=== PATIENT | male | born 1950 | race Caucasian/White ===

== ENCOUNTER 2023-11-30 20:04 | Observation (INO) | payer MEDICARE, BC ==
--- NOTE | 2023-11-30 20:15 | ERPHSYRPT ---
- History of Present Illness Time Seen by Provider: 11/30/23 20:12 Source: patient Exam Limitations: no limitations Physician History: Patient is a 73-year-old male presents to the emergency department via EMS for evaluation. Patient is reportedly from [facility]. 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 Christopher carol reports patient slid out of his wheelchair today. They request patient be "checked out". Patient denies pain. Patient is conversant and appears to be cognitively sound. However during triage it was observed patient to be febrile. No trauma observed on physical exam. Patient's brother is his POA. He is currently not in our ED for further information. Portions of this note were created with voice recognition technology. There may be grammatical, spelling, punctuation or sound alike errors Timing/Duration: today Severity: moderate Modifying Factors: Improves With: nothing Associated Symptoms: denies symptoms Allergies/Adverse Reactions: No Known Drug Allergies Allergy (Unverified 04/02/15 12:34) Home Medications: Lisinopril 20 mg [Zestril 20 MG] 20 mg PO DAILY 04/02/15 [History] Acetaminophen [Tylenol] 650 mg PO DAILY 11/30/23 [History] Acetaminophen [Tylenol] 650 mg PO Q6HPRN PRN 11/30/23 [History] Atorvastatin Calcium 20 mg PO HS 11/30/23 [History] Balsam [place] Oil [Venelex Ointment] 30 gm TP UD PRN 11/30/23 [History] Betamethasone Dipropionate [Diprosone CREAM 0.05% ] 15 gm TP Q12H PRN 11/30/23 [History] Donepezil HCl 10 mg [Aricept 10 MG] 10 mg PO HS 11/30/23 [History] Escitalopram Oxalate [Lexapro] 10 mg PO DAILY 11/30/23 [History] Melatonin 5 mg PO HS 11/30/23 [History] Menthol/Zinc Oxide [Calmoseptine Ointment Packet] 3.5 gm TP QID PRN 11/30/23 [History] Multivitamin [Multiple Vitamins] 1 each PO DAILY 11/30/23 [History] OLANZapine [Olanzapine] 5 mg PO BID 11/30/23 [History] Selenium Sulfide [Selsun Blue] 325 ml TP UD 11/30/23 [History] Hx Tetanus, Diphtheria Vaccination/Date Given: No Hx Influenza Vaccination/Date Given: Yes Hx Pneumococcal Vaccination/Date Given: No - Review of Systems Constitutional: No Symptoms, No Fever, No Chills Eyes: No Symptoms Ears, Nose, & Throat: No Symptoms Respiratory: No Symptoms, No Cough, No Dyspnea Cardiac: No Symptoms, No Chest Pain, No Edema, No Syncope Abdominal/Gastrointestinal: No Symptoms, No Abdominal Pain, No Nausea, No Vomiting, No Diarrhea Genitourinary Symptoms: No Symptoms, No Dysuria Musculoskeletal: No Symptoms, No Back Pain, No Neck Pain Skin: No Symptoms, No Rash Neurological: No Symptoms, No Dizziness, No Focal Weakness, No Sensory Changes Psychological: No Symptoms Endocrine: No Symptoms Hematologic/Lymphatic: No Symptoms Immunological/Allergic: No Symptoms All Other Systems: Reviewed and Negative - Past Medical History Pertinent Past Medical History: Yes Neurological History: Stroke Cardiac History: Other Other Medical History: right hemiparesis - Social History Smoking Status: Former smoker Exposure to second hand smoke: No Drug Use: none Patient Lives Alone: No - Nursing Vital Signs Nursing Vital Signs: Initial Vital Signs Temperature 99.9 F 11/30/23 20:04 Pulse Rate 89 11/30/23 20:04 Respiratory Rate 18 11/30/23 20:04 Blood Pressure 121/71 11/30/23 20:04 O2 Sat by Pulse Oximetry 94 L 11/30/23 20:04 Pain Scale Pain Intensity 0 - Physical Exam General Appearance: no apparent distress, alert Eye Exam: PERRL/EOMI, eyes nml inspection Ears, Nose, Throat Exam: normal ENT inspection, TMs normal, pharynx normal, moist mucous membranes Neck Exam: normal inspection, non-tender, supple, full range of motion Respiratory Exam: normal breath sounds, lungs clear, airway intact, No respiratory distress Cardiovascular Exam: regular rate/rhythm, normal heart sounds, normal peripheral pulses Gastrointestinal/Abdomen Exam: soft, normal bowel sounds, No tenderness, No mass Back Exam: normal inspection, normal range of motion, No CVA tenderness, No awais tebral tenderness Extremity Exam: normal inspection, normal range of motion, pelvis stable Neurologic Exam: alert, oriented x 3, cooperative, normal mood/affect, nml cerebellar function, nml station & gait, sensation nml, No motor deficits Skin Exam: normal color, warm, dry, No rash Lymphatic Exam: No adenopathy SpO2 Interpretation: normal SpO2: 94 O2 Delivery: Room Air - Course Nursing assessment & vital signs reviewed: Yes EKG Interpreted by Me: RATE (87), Sinus Rhythm, NORMAL AXIS, NORMAL INTERVALS - Radiology Exams Chest X-ray Interpretation: Interpreted by me (Nonacute hyperinflated chest with chronic features) Ordered Tests: Active Orders 24 hr Category Date Time Status Refrigerated Cargo Clerk STAT Care 11/30/23 20:11 Active EKG-ER Only STAT Care 11/30/23 20:10 Active IV Insertion STAT Care 11/30/23 20:10 Active Pulse Oximetry (ED) STAT Care 11/30/23 20:10 Active CHEST 1 VIEW (PORTABLE) Stat Exams 11/30/23 20:11 Taken BLOOD CULTURE Stat Lab 11/30/23 20:25 Received CBC W DIFF Stat Lab 11/30/23 20:18 Completed CMP Stat Lab 11/30/23 20:18 Completed Lactic Acid Stat Lab 11/30/23 20:25 Completed UA W/RFX UR CULTURE Stat Lab 11/30/23 21:26 Completed Transfer Order Routine Transfer 11/30/23 Ordered Medication Summary Generic Name Dose Route Start Last Admin Trade Name Clara PRN Reason Stop Dose Admin Sodium Chloride 1,000 mls @ 100 mls/hr 11/30/23 20:15 11/30/23 21:02 Sodium Chloride 0.9% 1000 Ml IV 12/30/23 20:14 100 mls/hr .Q10H LILO Administration Lab/Rad Data: Laboratory Result Diagrams 11/30/23 20:18 11/30/23 20:18 Laboratory Results 11/30/23 11/30/23 11/30/23 Range/Units 21:26 20:28 20:25 WBC (4.0-10.5) x10^3/uL RBC (4.1-5.6) x10^6/uL Hgb (12.5-18.0) g/dL Hct (42-50) % MCV (78-100) fL MCH (26-32) pg MCHC (32-36) g/dL RDW (11.5-14.0) % Plt Count (150-450) x10^3/uL MPV (7.5-11.0) fL Gran % (36.0-66.0) % Immature Gran % (Auto) (0.00-0.4) % Nucleat RBC Rel Count (0.00-0.1) % Eos # (Auto) (0-0.5) x10^3/uL Immature Gran # (Auto) (0.00-0.03) x10^3u/L Absolute Lymphs (auto) (1.0-4.6) x10^3/uL Absolute Monos (auto) (0.0-1.3) x10^3/uL Absolute Nucleated RBC (0.00-0.01) x10^3u/L Lymphocytes % (24.0-44.0) % Monocytes % (0.0-12.0) % Eosinophils % (0.00-5.0) % Basophils % (0.0-0.4) % Absolute Granulocytes (1.4-6.9) x10^3/uL Basophils # (0-0.4) x10^3/uL Sodium (135-145) mmol/L Potassium (3.5-5.1) mmol/L Chloride (98-107) mmol/L Carbon Dioxide (22-30) mmol/L Anion Gap (5-15) MEQ/L BUN (9-20) mg/dL Creatinine (0.66-1.25) mg/dL Estimated GFR ML/MIN Glucose (74-106) mg/dL Lactic Acid 1.1 (0.4-2.0) Calcium (8.4-10.2) mg/dL Total Bilirubin (0.2-1.3) mg/dL AST (17-59) U/L ALT (0-50) U/L Alkaline Phosphatase (38-126) U/L Serum Total Protein (6.3-8.2) g/dL Albumin (3.5-5.0) g/dL Urine Color Dark Yellow (Yellow) Urine Appearance Clear (Clear) Urine pH 5.5 (4.6-8.0) Ur Specific [place] >=1.030 A (1.005-1.030) Urine Protein 30 (Negative) Urine Glucose (UA) Negative (Negative) mg/dL Urine Ketones Trace A (Negative) Urine Blood Negative (Negative) Urine Nitrite Negative (Negative) Urine Bilirubin Negative (Negative) Urine Urobilinogen 1.0 A (0.2) mg/dL Ur Leukocyte Esterase Trace A (Negative) U Hyaline Cast (Auto) 3-5 A (0-2) /LPF Urine Microscopic RBC 0-2 (0-5) /HPF Urine Microscopic WBC 0-2 (0-5) /HPF Ur Epithelial Cells None Seen (None Seen) /HPF Urine Bacteria None Seen (None Seen) /HPF Urine Culture Reflexed NO (NO) Influenza Type A Ag NEGATIVE (NEGATIVE) Influenza Type B Ag NEGATIVE (NEGATIVE) RSV (PCR) NEGATIVE (NEGATIVE) SARS-CoV-2 (PCR) NEGATIVE (NEGATIVE) 11/30/23 11/30/23 Range/Units 20:18 20:18 WBC 8.7 (4.0-10.5) x10^3/uL RBC 3.50 L (4.1-5.6) x10^6/uL Hgb 10.4 L (12.5-18.0) g/dL Hct 33.6 L (42-50) % MCV 96.0 (78-100) fL MCH 29.7 (26-32) pg MCHC 31.0 L (32-36) g/dL RDW 15.5 H (11.5-14.0) % Plt Count 145 L (150-450) x10^3/uL MPV 10.3 (7.5-11.0) fL Gran % 84.8 H (36.0-66.0) % Immature Gran % (Auto) 0.3 (0.00-0.4) % Nucleat RBC Rel Count 0.0 (0.00-0.1) % Eos # (Auto) 0.02 (0-0.5) x10^3/uL Immature Gran # (Auto) 0.03 (0.00-0.03) x10^3u/L Absolute Lymphs (auto) 0.70 L (1.0-4.6) x10^3/uL Absolute Monos (auto) 0.53 (0.0-1.3) x10^3/uL Absolute Nucleated RBC 0.00 (0.00-0.01) x10^3u/L Lymphocytes % 8.1 L (24.0-44.0) % Monocytes % 6.1 (0.0-12.0) % Eosinophils % 0.2 (0.00-5.0) % Basophils % 0.5 (0.0-0.4) % Absolute Granulocytes 7.37 H (1.4-6.9) x10^3/uL Basophils # 0.04 (0-0.4) x10^3/uL Sodium 141 (135-145) mmol/L Potassium 4.7 (3.5-5.1) mmol/L Chloride 105 (98-107) mmol/L Carbon Dioxide 28 (22-30) mmol/L Anion Gap 12.3 (5-15) MEQ/L BUN 38 H (9-20) mg/dL Creatinine 1.07 (0.66-1.25) mg/dL Estimated GFR 72.4 ML/MIN Glucose 101 (74-106) mg/dL Lactic Acid (0.4-2.0) Calcium 9.1 (8.4-10.2) mg/dL Total Bilirubin 0.40 (0.2-1.3) mg/dL AST 34 (17-59) U/L ALT 22 (0-50) U/L Alkaline Phosphatase 117 (38-126) U/L Serum Total Protein 6.9 (6.3-8.2) g/dL Albumin 3.9 (3.5-5.0) g/dL Urine Color (Yellow) Urine Appearance (Clear) Urine pH (4.6-8.0) Ur Specific [place] (1.005-1.030) Urine Protein (Negative) Urine Glucose (UA) (Negative) mg/dL Urine Ketones (Negative) Urine Blood (Negative) Urine Nitrite (Negative) Urine Bilirubin (Negative) Urine Urobilinogen (0.2) mg/dL Ur Leukocyte Esterase (Negative) U Hyaline Cast (Auto) (0-2) /LPF Urine Microscopic RBC (0-5) /HPF Urine Microscopic WBC (0-5) /HPF Ur Epithelial Cells (None Seen) /HPF Urine Bacteria (None Seen) /HPF Urine Culture Reflexed (NO) Influenza Type A Ag (NEGATIVE) Influenza Type B Ag (NEGATIVE) RSV (PCR) (NEGATIVE) SARS-CoV-2 (PCR) (NEGATIVE) - Progress Progress: improved Progress Note: 73-year-old male history of right paraplegia from an old stroke presents to our ED for evaluation after slipping out of his wheelchair. No trauma reported. Patient denies pain. Physical exam essentially nonremarkable for acute pathology. Patient's temperature was 99.7. We initiated a febrile workup. Workup reveals dehydration. No nidus of infection observed. However patient's blood pressure observed to be low. Patient's blood pressure has been low over the past several months according to the correction however patient still continued to receive his blood pressure medication. In light of his low blood pressure we will admit patient for further evaluation. We plan on holding his blood pressure medication hydrating him and monitoring his blood pressure response. Case discussed with Dr. Arias who accepts admission at 11:35 PM. Plan of care discussed with patient. He agrees to admission to [facility] for further evaluation and treatment. Portions of this note were created with voice recognition technology. There may be grammatical, spelling, punctuation or sound alike errors Complexity problem addressed is moderate acute complicated No critical care time Complexity of data reviewed and analyzed is extensive. Test ordered test reviewed. Results analyzed and correlated clinically with history and physical exam. Management discussed with hospitalist who accepts admission to observation. Risk of complication and or risk of morbidity/mortality of patient management is high. Patient requires hospitalization for further evaluation and treatment. Vital stable. Time spent to admit patient is approximately 20 minutes. Plan of care established for shared decision making. No social determinants of health present impede follow-up. Portions of this note were created with voice recognition technology. There may be grammatical, spelling, punctuation or sound alike errors 11/30/23 23:42 Counseled pt/family regarding: lab results, diagnosis, rad results - Departure Departure Disposition: Observation Clinical Impression: Generalized weakness, Fever, Low BP Condition: Stable Critical Care Time: No Referrals: WENDI WISE MD [Primary Care Provider] - Follow up/PCP as directed
[2023-11-30 20:31] LABS: Absolute Neutrophil Ct (ANC) 7.37 x10^3/uL (1.4-6.9); BASOPHIL % 0.5 % (0.0-0.4); Basophil (Absolute #) 0.04 x10^3/uL (0-0.4); Eosinophil % 0.2 % (0.00-5.0); Eosinophil (Absolute #) 0.02 x10^3/uL (0-0.5); Hematocrit 33.6 % (42-50); Hemoglobin 10.4 g/dL (12.5-18.0); IMMATURE GRAN # 0.03 x10^3u/L (0.00-0.03); IMMATURE GRAN % 0.3 % (0.00-0.4); Lymphocytes % 8.1 % (24.0-44.0); Mean Corpuscular Hemoglobin 29.7 pg (26-32); Mean Platelet Volume 10.3 fL (7.5-11.0); Monocyte (Absolute #) 0.53 x10^3/uL (0.0-1.3); Monocytes % 6.1 % (0.0-12.0); Neutrophil % 84.8 % (36.0-66.0); Platelet Count 145 x10^3/uL (150-450); Red Cell Distribution Width 15.5 % (11.5-14.0); White Blood Count 8.7 x10^3/uL (4.0-10.5)
[2023-11-30 20:45] LABS: ALBUMIN 3.9 g/dL (3.5-5.0); ANION GAP 12.3 MEQ/L (5-15); BILIRUBIN,TOTAL 0.4 mg/dL (0.2-1.3); Calcium 9.1 mg/dL (8.4-10.2); Creatinine 1 1.07 mg/dL (0.66-1.25); EST GLOMERULAR FILTRATION RATE 72.4 ML/MIN; Potassium 4.7 mmol/L (3.5-5.1); Total Protein 6.9 g/dL (6.3-8.2)
[2023-11-30] MEDS ORDERED: Sodium Chloride 0.9% 1000 ML 1,000 ML ONE (20:58)
[2023-11-30] MEDS: Sodium Chloride 0.9% 1000 ML 1,000 ML IV SCH (21:02)
[2023-11-30 21:10] LABS: INFLUENZA A NEGATIVE (NEGATIVE); INFLUENZA B NEGATIVE (NEGATIVE); RESPIRATORY SYNCTIAL VIRUS NEGATIVE (NEGATIVE); SARS-CoV-2 Xpert Express NEGATIVE (NEGATIVE)
[2023-11-30 21:40] LABS: Appearance Clear (Clear); Bacteria None Seen /HPF (None Seen); Bilirubin Negative (Negative); Blood Negative (Negative); Epithelial Cells None Seen /HPF (None Seen); Glucose, Urine Negative (Negative); Ketones Trace (Negative); Leukocyte Esterase Trace (Negative); Nitrite Negative (Negative); Ph 5.5 (4.6-8.0); Protein,Urine Dip 30 (Negative); RBC 0-2 /HPF (0-5); Specific Gravity >=1.030 (1.005-1.030); WBC 0-2 /HPF (0-5)
[2023-11-30 21:47] LABS: ADD URINE CULTURE? NO (NO)
--- NOTE | 2023-12-01 04:15 | PCM.HP ---
History of Present Illness - Chief Complaint Chief Complaint: Generalized weakness, low blood pressure Date: 11/30/23 History of Present Illness: Mr. CASTILLO is a 73 year old male with a past medical history significant for hypertension, hyperlipidemia and previous CVA who was sent in to the hospital for evaluation due to weakness. He had a low grade fever at 99.9 and then was somewhat hypotensive with blood pressures in the 70-90s systolically so he was recommended for admission. He is resting in bed, sleepy but arousable. He appears hemodynamically stable and in no apparent distress. Blood pressures on the floor have been better in the 120-130s after getting IVFs. - Review of Systems Constitutional: Fever, No Chills, No Fatigue Eyes: No Vision Changes Ears, Nose, & Throat: No Hearing Changes, No Painful Swallowing Respiratory: No Cough, No Orthopnea, No Short Of Breath Cardiac: No Chest Pain, No Edema, No Palpitations Abdominal/Gastrointestinal: No Abdominal Pain, No Nausea, No Vomiting, No Diarrhea Genitourinary Symptoms: No Dysuria, No Frequency, No Hematuria Musculoskeletal: No Arthralgias, No Back Pain, No Neck Pain Skin: No Cellulitis, No Rash Neurological: Dizziness, Focal Weakness Psychological: No Suicidal Ideations Endocrine: No Polyuria, No Polydipsia Medications & Allergies Home Medications: Home Medication List Lisinopril 20 mg [Zestril 20 MG] 20 mg PO DAILY 04/02/15 [History Confirmed 11/30/23] Acetaminophen [Tylenol] 650 mg PO DAILY 11/30/23 [History Confirmed 11/30/23] Acetaminophen [Tylenol] 650 mg PO Q6HPRN PRN 11/30/23 [History Confirmed 11/30/23] Atorvastatin Calcium 20 mg PO HS 11/30/23 [History Confirmed 11/30/23] Balsam [place] Oil [Venelex Ointment] 30 gm TP UD PRN 11/30/23 [History Confirmed 11/30/23] Betamethasone Dipropionate [Diprosone CREAM 0.05% ] 15 gm TP Q12H PRN 11/30/23 [History Confirmed 11/30/23] Donepezil HCl 10 mg [Aricept 10 MG] 10 mg PO HS 11/30/23 [History Confirmed 11/30/23] Escitalopram Oxalate [Lexapro] 10 mg PO DAILY 11/30/23 [History Confirmed 11/30/23] Melatonin 5 mg PO HS 11/30/23 [History Confirmed 11/30/23] Menthol/Zinc Oxide [Calmoseptine Ointment Packet] 3.5 gm TP QID PRN 11/30/23 [History Confirmed 11/30/23] Multivitamin [Multiple Vitamins] 1 each PO DAILY 11/30/23 [History Confirmed 11/30/23] OLANZapine [Olanzapine] 5 mg PO BID 11/30/23 [History Confirmed 11/30/23] Selenium Sulfide [Selsun Blue] 325 ml TP UD 11/30/23 [History Confirmed 11/30/23] Allergies/Adverse Reactions: Allergies Allergy/AdvReac Type Severity Reaction Status Date / Time No Known Drug Allergies Allergy Unverified 04/02/15 12:34 - Past Medical History Past Medical History: Yes Neurological History: Stroke ENT History: No Pertinent History Cardiac History: High Cholesterol, Hypertension, Other Respiratory History: No Pertinent History Endocrine Medical History: No Pertinent History Musculoskelatal History: No Pertinent History GI Medical History: No Pertinent History History: No Pertinent History Pyscho-Social History: Anxiety, Depression Male Reproductive Disorders: Prostate Problems Comment: right hemiparesis - Past Surgical History Past Surgical History: No Neuro Surgical History: No Pertinent History Cardiac History: No Pertinent History Respiratory Surgery: No Pertinent History GI Surgical History: No Pertinent History Genitourinary Surgical Hx: No Pertinent History Musculskeletal Surgical Hx: No Pertinent History Male Surgical History: No Pertinent History Other Surgical History: unable to complete surgery history - Social History Smoking Status: Never smoker Exposure to second hand smoke: No Alcohol: None Drug Use: none - Social Determinants of Health Will the patient participate in the screening: Yes Do you worry about a steady place to live?: No Do you have any problems with any of the following?: No known problems In the past 12 months,have you had to go without utilities?: No Have you or anyone in your house had to go without enough: No Transportation Issues: No Has anyone in your support network made you feel unsafe?: No Does the patient want assistance with any of the above?: No - Physical Exam Vital Signs: Vital Signs - 24 hr Temp Pulse Resp BP BP Pulse Ox 12/01/23 01:50 96 12/01/23 00:03 98.7 F 74 18 134/63 99 12/01/23 00:02 99 11/30/23 23:47 94 L 11/30/23 23:03 76 20 83/61 95 11/30/23 23:00 81 17 69/49 95 11/30/23 22:30 78 16 82/52 11/30/23 22:02 80 20 88/60 95 11/30/23 22:01 85 19 90/59 94 L 11/30/23 22:00 84 16 96 11/30/23 21:30 82 18 99/57 94 L 11/30/23 21:00 94 H 15 127/80 94 L 11/30/23 20:23 94 L 11/30/23 20:04 99.9 F 89 18 121/71 94 L General Appearance: no apparent distress Neurologic Exam: depressed mood/affect Ears, Nose, Throat Exam: dry mucous membranes Neck Exam: supple Respiratory Exam: lungs clear, No respiratory distress Cardiovascular Exam: regular rate/rhythm Gastrointestinal/Abdomen Exam: soft, No tenderness Extremity Exam: No pedal edema, No swelling Skin Exam: normal color, No rash Results - Labs Lab/Micro Results: Lab Results-Last 24 Hours 11/30/23 11/30/23 11/30/23 Range/Units 20:18 20:18 20:25 WBC 8.7 (4.0-10.5) x10^3/uL RBC 3.50 L (4.1-5.6) x10^6/uL Hgb 10.4 L (12.5-18.0) g/dL Hct 33.6 L (42-50) % MCV 96.0 (78-100) fL MCH 29.7 (26-32) pg MCHC 31.0 L (32-36) g/dL RDW 15.5 H (11.5-14.0) % Plt Count 145 L (150-450) x10^3/uL MPV 10.3 (7.5-11.0) fL Gran % 84.8 H (36.0-66.0) % Immature Gran % (Auto) 0.3 (0.00-0.4) % Nucleat RBC Rel Count 0.0 (0.00-0.1) % Eos # (Auto) 0.02 (0-0.5) x10^3/uL Immature Gran # (Auto) 0.03 (0.00-0.03) x10^3u/L Absolute Lymphs (auto) 0.70 L (1.0-4.6) x10^3/uL Absolute Monos (auto) 0.53 (0.0-1.3) x10^3/uL Absolute Nucleated RBC 0.00 (0.00-0.01) x10^3u/L Lymphocytes % 8.1 L (24.0-44.0) % Monocytes % 6.1 (0.0-12.0) % Eosinophils % 0.2 (0.00-5.0) % Basophils % 0.5 (0.0-0.4) % Absolute Granulocytes 7.37 H (1.4-6.9) x10^3/uL Basophils # 0.04 (0-0.4) x10^3/uL Sodium 141 (135-145) mmol/L Potassium 4.7 (3.5-5.1) mmol/L Chloride 105 (98-107) mmol/L Carbon Dioxide 28 (22-30) mmol/L Anion Gap 12.3 (5-15) MEQ/L BUN 38 H (9-20) mg/dL Creatinine 1.07 (0.66-1.25) mg/dL Estimated GFR 72.4 ML/MIN Glucose 101 (74-106) mg/dL Lactic Acid 1.1 (0.4-2.0) Calcium 9.1 (8.4-10.2) mg/dL Total Bilirubin 0.40 (0.2-1.3) mg/dL AST 34 (17-59) U/L ALT 22 (0-50) U/L Alkaline Phosphatase 117 (38-126) U/L Serum Total Protein 6.9 (6.3-8.2) g/dL Albumin 3.9 (3.5-5.0) g/dL Urine Color (Yellow) Urine Appearance (Clear) Urine pH (4.6-8.0) Ur Specific [place] (1.005-1.030) Urine Protein (Negative) Urine Glucose (UA) (Negative) mg/dL Urine Ketones (Negative) Urine Blood (Negative) Urine Nitrite (Negative) Urine Bilirubin (Negative) Urine Urobilinogen (0.2) mg/dL Ur Leukocyte Esterase (Negative) U Hyaline Cast (Auto) (0-2) /LPF Urine Microscopic RBC (0-5) /HPF Urine Microscopic WBC (0-5) /HPF Ur Epithelial Cells (None Seen) /HPF Urine Bacteria (None Seen) /HPF Urine Culture Reflexed (NO) Influenza Type A Ag (NEGATIVE) Influenza Type B Ag (NEGATIVE) RSV (PCR) (NEGATIVE) SARS-CoV-2 (PCR) (NEGATIVE) 11/30/23 11/30/23 Range/Units 20:28 21:26 WBC (4.0-10.5) x10^3/uL RBC (4.1-5.6) x10^6/uL Hgb (12.5-18.0) g/dL Hct (42-50) % MCV (78-100) fL MCH (26-32) pg MCHC (32-36) g/dL RDW (11.5-14.0) % Plt Count (150-450) x10^3/uL MPV (7.5-11.0) fL Gran % (36.0-66.0) % Immature Gran % (Auto) (0.00-0.4) % Nucleat RBC Rel Count (0.00-0.1) % Eos # (Auto) (0-0.5) x10^3/uL Immature Gran # (Auto) (0.00-0.03) x10^3u/L Absolute Lymphs (auto) (1.0-4.6) x10^3/uL Absolute Monos (auto) (0.0-1.3) x10^3/uL Absolute Nucleated RBC (0.00-0.01) x10^3u/L Lymphocytes % (24.0-44.0) % Monocytes % (0.0-12.0) % Eosinophils % (0.00-5.0) % Basophils % (0.0-0.4) % Absolute Granulocytes (1.4-6.9) x10^3/uL Basophils # (0-0.4) x10^3/uL Sodium (135-145) mmol/L Potassium (3.5-5.1) mmol/L Chloride (98-107) mmol/L Carbon Dioxide (22-30) mmol/L Anion Gap (5-15) MEQ/L BUN (9-20) mg/dL Creatinine (0.66-1.25) mg/dL Estimated GFR ML/MIN Glucose (74-106) mg/dL Lactic Acid (0.4-2.0) Calcium (8.4-10.2) mg/dL Total Bilirubin (0.2-1.3) mg/dL AST (17-59) U/L ALT (0-50) U/L Alkaline Phosphatase (38-126) U/L Serum Total Protein (6.3-8.2) g/dL Albumin (3.5-5.0) g/dL Urine Color Dark Yellow (Yellow) Urine Appearance Clear (Clear) Urine pH 5.5 (4.6-8.0) Ur Specific [place] >=1.030 A (1.005-1.030) Urine Protein 30 (Negative) Urine Glucose (UA) Negative (Negative) mg/dL Urine Ketones Trace A (Negative) Urine Blood Negative (Negative) Urine Nitrite Negative (Negative) Urine Bilirubin Negative (Negative) Urine Urobilinogen 1.0 A (0.2) mg/dL Ur Leukocyte Esterase Trace A (Negative) U Hyaline Cast (Auto) 3-5 A (0-2) /LPF Urine Microscopic RBC 0-2 (0-5) /HPF Urine Microscopic WBC 0-2 (0-5) /HPF Ur Epithelial Cells None Seen (None Seen) /HPF Urine Bacteria None Seen (None Seen) /HPF Urine Culture Reflexed NO (NO) Influenza Type A Ag NEGATIVE (NEGATIVE) Influenza Type B Ag NEGATIVE (NEGATIVE) RSV (PCR) NEGATIVE (NEGATIVE) SARS-CoV-2 (PCR) NEGATIVE (NEGATIVE) - Radiology Impressions Radiology Exams & Impressions: Radiology Procedures Category Date Time Status CHEST 1 VIEW (PORTABLE) Stat Exams 11/30/23 20:11 Taken - Other Procedures and Tests Respiratory Therapy 12/01/23 01:49 Oxygen Nasal Cannula 2 lpm Assessment/Plan (1) Generalized weakness Current Visit: Yes Status: Acute Assessment & Plan: Likely from combination of dehydration and systemic hypotension 1. Admit to observation status 2. IVFs 3. PT eval 4. DVT/GI prophylaxis Code(s): R53.1 - WEAKNESS (2) Fever Current Visit: Yes Status: Acute Assessment & Plan: Low grade temp on arrival, no signs of active infection 1. Defer antibiotics 2. Monitor vitals Code(s): R50.9 - FEVER, UNSPECIFIED (3) Low BP Current Visit: Yes Status: Acute Assessment & Plan: Likely from dehydration and continued antihypertensive use 1. Hold bp meds 2. IVFs 3. Check orthostatic pressures 4. Monitor blood pressure readings Code(s): I95.9 - HYPOTENSION, UNSPECIFIED Telemedicine Encounter - Telemedicine Encounter Telemedicine Encounter: The entirety of this encounter was performed via Telemedicine"
[2023-12-01] MEDS ORDERED: Zofran 4 MG/2 ML VIAL IV PRN (04:20)
[2023-12-01] MEDS ORDERED: TYLENOL 325 MG PO PRN (04:20)
[2023-12-01] MEDS ORDERED: Sodium Chloride 0.9% 1000 ML 1,000 ML IV SCH (04:30)
[2023-12-01 08:24] VITALS: RESP 18
--- NOTE | 2023-12-01 08:43 | XRAY ---
Indication: Fever. Comparison: August 30, 2019 Portable chest again hyperinflated without focal infiltrate, consolidation, or large effusion. Heart not enlarged again with tortuous descending aorta. Bony thorax intact again with osteopenia, degenerative changes, and old left clavicle fracture. Impression: Continued nonacute hyperinflated chest with chronic features.
[2023-12-01] MEDS: Aricept 10 MG PO SCH (10:30)
[2023-12-01] MEDS: Lexapro PO SCH (10:30)
[2023-12-01] MEDS: Protonix 40MG Tablet PO SCH (10:30)
[2023-12-01] MEDS: ENOXAPARIN SODIUM SQ SCH (10:31)
--- NOTE | 2023-12-01 11:08 | PCM.DS ---
Discharge Summary Date of Admission: 11/30/23 23:43 Date of Discharge: 12/01/23 Admitting Physician: CLARISA HERNÁNDEZ MD Primary Care Provider: WENDI WISE Allergies Allergies No Known Drug Allergies Allergy (Unverified 04/02/15 12:34) Hospital Summary - Hospital Course Hospital Course: Mr. CASTILLO is a 73 year old male with a past medical history significant for hypertension, hyperlipidemia and previous CVA. He lives at [facility]. He was sent in to the hospital for evaluation due to weakness. He is normally confused and weak and uses a wheelchair. Right side is chronically flaccid since CVA. He had a low grade fever at 99.9 on admission and then was somewhat hypotensive with blood pressures in the 70-90s systolically so he was recom mended for admission. He was given a 1 L fluid bolus in ER and continued IVF. He is resting in bed, sleepy but arousable. He appears hemodynamically stable and in no apparent distress. Blood pressures on the floor have been better in the 120-130s after getting IVFs. He has not had a temp since admission. Will obatin a head CT for further evaluation, results show old infarct no new concerns. Will have PT work with pt today. If everything is ok will d/c today back to [facility]. - Vitals & Intake/Output Vital Signs: Vital Signs Temperature 98.0 F 12/01/23 08:00 Pulse Rate 76 12/01/23 08:00 Respiratory Rate 18 12/01/23 08:00 Blood Pressure 151/79 12/01/23 08:00 O2 Sat by Pulse Oximetry 96 12/01/23 08:00 Intake & Output: Intake & Output 11/28/23 11/29/23 11/30/23 12/01/23 11:59 11:59 11:59 11:59 Intake Total 537 Balance 537 Weight 64.7 kg - Lab Result Diagrams: 11/30/23 20:18 11/30/23 20:18 Lab Results-Last 24 Hrs: Lab Results-Last 24 Hours 11/30/23 11/30/23 11/30/23 Range/Units 20:18 20:18 20:25 WBC 8.7 (4.0-10.5) x10^3/uL RBC 3.50 L (4.1-5.6) x10^6/uL Hgb 10.4 L (12.5-18.0) g/dL Hct 33.6 L (42-50) % MCV 96.0 (78-100) fL MCH 29.7 (26-32) pg MCHC 31.0 L (32-36) g/dL RDW 15.5 H (11.5-14.0) % Plt Count 145 L (150-450) x10^3/uL MPV 10.3 (7.5-11.0) fL Gran % 84.8 H (36.0-66.0) % Immature Gran % (Auto) 0.3 (0.00-0.4) % Nucleat RBC Rel Count 0.0 (0.00-0.1) % Eos # (Auto) 0.02 (0-0.5) x10^3/uL Immature Gran # (Auto) 0.03 (0.00-0.03) x10^3u/L Absolute Lymphs (auto) 0.70 L (1.0-4.6) x10^3/uL Absolute Monos (auto) 0.53 (0.0-1.3) x10^3/uL Absolute Nucleated RBC 0.00 (0.00-0.01) x10^3u/L Lymphocytes % 8.1 L (24.0-44.0) % Monocytes % 6.1 (0.0-12.0) % Eosinophils % 0.2 (0.00-5.0) % Basophils % 0.5 (0.0-0.4) % Absolute Granulocytes 7.37 H (1.4-6.9) x10^3/uL Basophils # 0.04 (0-0.4) x10^3/uL Sodium 141 (135-145) mmol/L Potassium 4.7 (3.5-5.1) mmol/L Chloride 105 (98-107) mmol/L Carbon Dioxide 28 (22-30) mmol/L Anion Gap 12.3 (5-15) MEQ/L BUN 38 H (9-20) mg/dL Creatinine 1.07 (0.66-1.25) mg/dL Estimated GFR 72.4 ML/MIN Glucose 101 (74-106) mg/dL Lactic Acid 1.1 (0.4-2.0) Calcium 9.1 (8.4-10.2) mg/dL Total Bilirubin 0.40 (0.2-1.3) mg/dL AST 34 (17-59) U/L ALT 22 (0-50) U/L Alkaline Phosphatase 117 (38-126) U/L Serum Total Protein 6.9 (6.3-8.2) g/dL Albumin 3.9 (3.5-5.0) g/dL Urine Color (Yellow) Urine Appearance (Clear) Urine pH (4.6-8.0) Ur Specific [place] (1.005-1.030) Urine Protein (Negative) Urine Glucose (UA) (Negative) mg/dL Urine Ketones (Negative) Urine Blood (Negative) Urine Nitrite (Negative) Urine Bilirubin (Negative) Urine Urobilinogen (0.2) mg/dL Ur Leukocyte Esterase (Negative) U Hyaline Cast (Auto) (0-2) /LPF Urine Microscopic RBC (0-5) /HPF Urine Microscopic WBC (0-5) /HPF Ur Epithelial Cells (None Seen) /HPF Urine Bacteria (None Seen) /HPF Urine Culture Reflexed (NO) Influenza Type A Ag (NEGATIVE) Influenza Type B Ag (NEGATIVE) RSV (PCR) (NEGATIVE) SARS-CoV-2 (PCR) (NEGATIVE) 11/30/23 11/30/23 Range/Units 20:28 21:26 WBC (4.0-10.5) x10^3/uL RBC (4.1-5.6) x10^6/uL Hgb (12.5-18.0) g/dL Hct (42-50) % MCV (78-100) fL MCH (26-32) pg MCHC (32-36) g/dL RDW (11.5-14.0) % Plt Count (150-450) x10^3/uL MPV (7.5-11.0) fL Gran % (36.0-66.0) % Immature Gran % (Auto) (0.00-0.4) % Nucleat RBC Rel Count (0.00-0.1) % Eos # (Auto) (0-0.5) x10^3/uL Immature Gran # (Auto) (0.00-0.03) x10^3u/L Absolute Lymphs (auto) (1.0-4.6) x10^3/uL Absolute Monos (auto) (0.0-1.3) x10^3/uL Absolute Nucleated RBC (0.00-0.01) x10^3u/L Lymphocytes % (24.0-44.0) % Monocytes % (0.0-12.0) % Eosinophils % (0.00-5.0) % Basophils % (0.0-0.4) % Absolute Granulocytes (1.4-6.9) x10^3/uL Basophils # (0-0.4) x10^3/uL Sodium (135-145) mmol/L Potassium (3.5-5.1) mmol/L Chloride (98-107) mmol/L Carbon Dioxide (22-30) mmol/L Anion Gap (5-15) MEQ/L BUN (9-20) mg/dL Creatinine (0.66-1.25) mg/dL Estimated GFR ML/MIN Glucose (74-106) mg/dL Lactic Acid (0.4-2.0) Calcium (8.4-10.2) mg/dL Total Bilirubin (0.2-1.3) mg/dL AST (17-59) U/L ALT (0-50) U/L Alkaline Phosphatase (38-126) U/L Serum Total Protein (6.3-8.2) g/dL Albumin (3.5-5.0) g/dL Urine Color Dark Yellow (Yellow) Urine Appearance Clear (Clear) Urine pH 5.5 (4.6-8.0) Ur Specific [place] >=1.030 A (1.005-1.030) Urine Protein 30 (Negative) Urine Glucose (UA) Negative (Negative) mg/dL Urine Ketones Trace A (Negative) Urine Blood Negative (Negative) Urine Nitrite Negative (Negative) Urine Bilirubin Negative (Negative) Urine Urobilinogen 1.0 A (0.2) mg/dL Ur Leukocyte Esterase Trace A (Negative) U Hyaline Cast (Auto) 3-5 A (0-2) /LPF Urine Microscopic RBC 0-2 (0-5) /HPF Urine Microscopic WBC 0-2 (0-5) /HPF Ur Epithelial Cells None Seen (None Seen) /HPF Urine Bacteria None Seen (None Seen) /HPF Urine Culture Reflexed NO (NO) Influenza Type A Ag NEGATIVE (NEGATIVE) Influenza Type B Ag NEGATIVE (NEGATIVE) RSV (PCR) NEGATIVE (NEGATIVE) SARS-CoV-2 (PCR) NEGATIVE (NEGATIVE) - Radiology Exams Ordered Rad Exams-Entire Visit: Radiology Procedures Category Date Time Status CHEST 1 VIEW (PORTABLE) Stat Exams 11/30/23 20:11 Completed - Procedures and Test Procedures and Tests throughout Hospitalization: Therapy Orders & Screens 12/01/23 01:49 Oxygen Nasal Cannula 2 lpm Comment: Diagnosis: Generalized weakness, low blood pressure 12/01/23 04:20 PT Eval & Treat (MD Order) ONCE Reason for Eval:: weakness Diagnosis: Generalized weakness, low blood pressure Discharge Exam General Appearance: no apparent distress, alert Neurologic Exam: alert, cooperative, normal mood/affect, motor deficits (chronic right side weakness) Eye Exam: PERRL, EOMI, eyes nml inspection Ears, Nose, Throat Exam: normal ENT inspection, pharynx normal, moist mucous membranes Neck Exam: normal inspection, non-tender, supple, full range of motion Respiratory Exam: normal breath sounds, lungs clear, No respiratory distress Cardiovascular Exam: regular rate/rhythm, normal heart sounds Gastrointestinal/Abdomen Exam: soft, No tenderness, No mass Male Genitalia Exam: deferred Rectal Exam: deferred Back Exam: normal inspection, normal range of motion, No CVA tenderness, No vertebral tenderness Extremity Exam: normal inspection, normal range of motion, limited range of motion (right side weakness from old CVA.) Skin Exam: normal color, warm, dry Final Diagnosis/Problem List - Final Discharge Diagnosis/Problem (1) Hypotension Current Visit: Yes Status: Resolved Assessment & Plan: - resolved since IVF bolus and IV gave IP Code(s): I95.9 - HYPOTENSION, UNSPECIFIED (2) Fever Current Visit: Yes Status: Acute Assessment & Plan: - temp 99.9 on admission to ER - No fevers since admission - Chest XR negative - Labs non-concerning - Tylenol PRN Code(s): R50.9 - FEVER, UNSPECIFIED (3) Generalized weakness Current Visit: Yes Status: Acute Assessment & Plan: - acute on chronic - Normally uses wheelchair at [facility] - Lives in [facility] d/t old CVA with right sided chronic weakness. - CT head 11/30 Impression: 1. Nonacute senile brain with large old left parietal infarct and bilateral basal ganglia lacunar infarcts. 2. Again incidental paranasal sinus disease. - PT eval Code(s): R53.1 - WEAKNESS (4) History of recent fall Current Visit: No Status: Acute Assessment & Plan: - fall from wheelchair recently- pt reports no known injury or pain. Code(s): Z91.81 - HISTORY OF FALLING - Discharge Discharge Date: 12/01/23 Disposition: Home, Self-Care Condition: Stable Prescriptions: Continue Lisinopril 20 mg [Zestril 20 MG] 20 mg PO DAILY Escitalopram Oxalate [Lexapro] 10 mg PO DAILY Betamethasone Dipropionate [Diprosone CREAM 0.05% ] 15 gm TP Q12H PRN PRN Reason: Redness/Irritation Donepezil HCl 10 mg [Aricept 10 MG] 10 mg PO HS Atorvastatin Calcium 20 mg PO HS Balsam [place] Oil [Venelex Ointment] 30 gm TP UD PRN PRN Reason: Redness/Irritation Acetaminophen [Tylenol] 650 mg PO Q6HPRN PRN PRN Reason: Pain Acetaminophen [Tylenol] 650 mg PO DAILY Selenium Sulfide [Selsun Blue] 325 ml TP UD OLANZapine [Olanzapine] 5 mg PO BID Multivitamin [Multiple Vitamins] 1 each PO DAILY Melatonin 5 mg PO HS Menthol/Zinc Oxide [Calmoseptine Ointment Packet] 3.5 gm TP QID PRN PRN Reason: Redness/Irritation Follow up with: WENDI WISE MD [Primary Care Provider] -
--- NOTE | 2023-12-01 11:46 | XRAY ---
Indication: New onset weakness at extended care facility. Stroke. Multiple contiguous axial images obtained through the head without contrast. Comparison: April 02, 2015 Progressive age-appropriate global atrophy. Also interval maturing large old left parietal lobe infarct. Basal ganglia demonstrates new lacunar infarcts bilaterally. No acute intracranial hemorrhage, mass effect, or hydrocephalus. Fourth ventricle is midline. Bony calvarium intact. Moderate mucosal thickening both ethmoid/right sphenoid sinuses and lesser degree left maxillary sinus. Mastoid air cells are clear. Impression: 1. Nonacute senile brain with large old left parietal infarct and bilateral basal ganglia lacunar infarcts. 2. Again incidental paranasal sinus disease.
[2023-12-01 11:59] VITALS: BP 109/56; PULSE 63; TEMP 97.1; O2SAT 99
== END 2023-12-01 13:14 | disposition home or self-care (01) ==
LOC: ED 20:04 → MED SURG 23:43
PROVIDERS: ADMIT Internal Medicine Nephrology; ATTEND Internal Medicine Nephrology
DX: I95.9 Hypotension, unspecified (principal); I69.351 Hemiplegia and hemiparesis following cerebral infarction affecting right dominant side; R50.9 Fever, unspecified; R53.1 Weakness; E78.5 Hyperlipidemia, unspecified; W19.XXXA Unspecified fall, initial encounter; Z91.81 History of falling; Z79.899 Other long term (current) drug therapy; Z20.828 Contact with and (suspected) exposure to other viral communicable diseases
CPT/HCPCS: 0241U; 36000; 36415; 70450; 71045; 80053; 81001; 83605; 85025; 87040; 93005; 93041; 93268; 94760; 94762; 99285; J1650; A9270-GY; G0378

== ENCOUNTER 2024-01-06 10:15 | Observation (INO) | payer MEDICARE, BC ==
--- NOTE | 2024-01-06 10:22 | ERPHSYRPT ---
- History of Present Illness Time Seen by Provider: 01/06/24 10:22 Source: patient, EMS, [facility] records, old records Exam Limitations: clinical condition Physician History: This is a 73-year-old white male patient of Dr. Wise who is a resident at [facility] who was brought to the emergency department at approximately 1015 this morning by the paramedics. The patient has a primary care physician and that is Dr. Wise. Patient was brought to the emergency department because of lethargy the nursing staff noticed this morning. The last time he was well was last evening. The patient is unable to provide history secondary to his lethargy. He has additional altered mental status. Patient is wheelchair-bound secondary to right hemiparesis following a stroke. He has a degree of dementia, hypertension hyperlipidemia, chronic, intermittent low blood pressure and prostate issues. I obtained additional, independent history from the paramedics as well as reviewing the patient's last inpatient admission here on 11/30/2023 for similar issue. Timing/Duration: today (Noticed this morning prior to arrival per [facility] staff [facility] the [facility]. Last well,) Severity: moderate ( last evening) Character of Deficits: unable to speak Deficits: cannot stand (Chronic following a stroke. Patient wheelchair-bound), cannot walk (Chronic following a stroke, patient wheelchair-bound) Baseline/Normal Cognition: alert but confused Current Cognition: poor alertness Baseline Gait: unable to walk Allergies/Adverse Reactions: No Known Drug Allergies Allergy (Unverified 04/02/15 12:34) Home Medications: Lisinopril 20 mg [Zestril 20 MG] 20 mg PO DAILY 04/02/15 [History] Acetaminophen [Tylenol] 650 mg PO DAILY 11/30/23 [History] Acetaminophen [Tylenol] 650 mg PO Q6HPRN PRN 11/30/23 [History] Atorvastatin Calcium 20 mg PO HS 11/30/23 [History] Balsam [place] Oil [Venelex Ointment] 30 gm TP UD PRN 11/30/23 [History] Betamethasone Dipropionate [Diprosone CREAM 0.05% ] 15 gm TP Q12H PRN 11/30/23 [History] Donepezil HCl 10 mg [Aricept 10 MG] 10 mg PO HS 11/30/23 [History] Escitalopram Oxalate [Lexapro] 10 mg PO DAILY 11/30/23 [History] Melatonin 5 mg PO HS 11/30/23 [History] Menthol/Zinc Oxide [Calmoseptine Ointment Packet] 3.5 gm TP QID PRN 11/30/23 [History] Multivitamin [Multiple Vitamins] 1 each PO DAILY 11/30/23 [History] OLANZapine [Olanzapine] 5 mg PO BID 11/30/23 [History] Selenium Sulfide [Selsun Blue] 325 ml TP UD 11/30/23 [History] Apixaban [Eliquis] 5 mg PO BID 01/06/24 [History] Hx Tetanus, Diphtheria Vaccination/Date Given: No Hx Influenza Vaccination/Date Given: Yes Hx Pneumococcal Vaccination/Date Given: No Travel Risk - International Travel Have you traveled outside of the country in past 3 weeks: No - Emerging Infectious Disease Are you exhibiting symptoms associated with any current EIDs: No - Review of Systems Constitutional: Lethargy, Weakness Eyes: No Symptoms Ears, Nose, & Throat: No Symptoms Respiratory: No Symptoms Cardiac: No Symptoms Abdominal/Gastrointestinal: No Symptoms Genitourinary Symptoms: No Symptoms Musculoskeletal: No Symptoms Skin: No Symptoms Neurological: No Symptoms Psychological: No Symptoms Endocrine: No Symptoms Hematologic/Lymphatic: No Symptoms Immunological/Allergic: No Symptoms All Other Systems: Reviewed and Negative - Past Medical History Pertinent Past Medical History: Yes Neurological History: Stroke ENT History: No Pertinent History Cardiac History: High Cholesterol, Hypertension, Other Respiratory History: No Pertinent History Endocrine Medical History: No Pertinent History Musculoskeletal History: No Pertinent History GI Medical History: No Pertinent History History: No Pertinent History Psycho-Social History: Anxiety, Depression Male Reproductive Disorders: Prostate Problems Other Medical History: right hemiparesis - Past Surgical History Past Surgical History: No Neuro Surgical History: No Pertinent History Cardiac: No Pertinent History Respiratory: No Pertinent History Gastrointestinal: No Pertinent History Genitourinary: No Pertinent History Musculoskeletal: No Pertinent History Male Surgical History: No Pertinent History Other Surgical History: unable to complete surgery history - Social History Smoking Status: Never smoker Exposure to second hand smoke: No Drug Use: none Patient Lives Alone: No - Nursing Vital Signs Nursing Vital Signs: Initial Vital Signs Temperature 96.4 F 01/06/24 10:16 Pulse Rate 64 01/06/24 10:16 Respiratory Rate 19 01/06/24 10:16 Blood Pressure 110/58 01/06/24 10:16 O2 Sat by Pulse Oximetry 99 01/06/24 10:16 Pain Scale Pain Intensity 0 - Sarah Coma Scale Best Eye Response (Sarah): (2) open to pain Best Verbal Response (Derek): (2) incomprehsible sounds Best Motor Response (Derek): (4) withdraws to pain Sarah Total: 8 - Physical Exam General Appearance: lethargy, cachetic Eye Exam: bilateral eye: normal inspection, PERRL, EOMI Ears, Nose, Throat Exam: dry mucous membranes Neck Exam: normal inspection, non-tender, supple, full range of motion Respiratory: normal breath sounds, lungs clear, airway intact, No chest tenderness, No respiratory distress Cardiovascular: regular rate/rhythm, normal heart sounds, normal peripheral pulses Gastrointestinal: soft, normal bowel sounds, No tenderness Rectal Exam: not done Back Exam: normal inspection, normal range of motion, No CVA tenderness, No vertebral tenderness Extremity Exam: normal inspection, normal range of motion, pelvis stable Mental Status: lethargy Skin Exam: normal color, warm, dry SpO2 Interpretation: normal O2 Delivery: Room Air - Course Nursing assessment & vital signs reviewed: Yes EKG Interpreted by Me: RATE (61), Sinus Rhythm, NORMAL AXIS, NORMAL INTERVALS, NORMAL QRS, NORMAL ST-T, Other (No acute ischemic changes on today's twelve-lead EKG. When compared to twelve-lead EKG performed on 11/30/2023, there is no significant change.) Ordered Tests: Active Orders 24 hr Category Date Time Status Lode [employer]er Blasting STAT Care 01/06/24 10:43 Active Catheter-Harrell Kohli STAT Care 01/06/24 10:41 Active EKG-ER Only STAT Care 01/06/24 10:41 Active IV Insertion STAT Care 01/06/24 10:41 Active NPO (ED) STAT Care 01/06/24 10:41 Active Pulse Oximetry (ED) STAT Care 01/06/24 10:41 Active CHEST 1 VIEW (PORTABLE) Stat Exams 01/06/24 10:42 Completed HEAD WITHOUT CONTRAST [CT] Stat Exams 01/06/24 10:42 Completed BLOOD CULTURE Stat Lab 01/06/24 11:20 Received CBC W DIFF Stat Lab 01/06/24 10:41 Completed CMP Stat Lab 01/06/24 11:20 Completed CULTURE,URINE Stat Lab 01/06/24 10:42 Received Lactic Acid Stat Lab 01/06/24 10:41 Ordered MAGNESIUM Stat Lab 01/06/24 11:20 Completed MONO SCREEN Stat Lab 01/06/24 11:20 Completed UA W/RFX UR CULTURE Stat Lab 01/06/24 10:42 Completed Medication Summary Generic Name Dose Route Start Last Admin Trade Name Freq PRN Reason Stop Dose Admin Sodium Chloride 1,000 mls @ 100 mls/hr 01/06/24 10:45 01/06/24 10:57 Sodium Chloride 0.9% 1000 Ml IV 02/05/24 10:44 100 mls/hr .Q10H LILO Administration Discontinued Medications Generic Name Dose Route Start Last Admin Trade Name Freq PRN Reason Stop Dose Admin Ceftriaxone Sodium 1 gm in 100 mls @ 200 mls/hr 01/06/24 12:39 01/06/24 12:47 Rocephin 1 Gm / 100 Ml Nacl IV 01/06/24 13:08 200 ml/hr STAT ONE 200 mls/hr Administration Ceftriaxone Sodium Confirm 01/06/24 12:43 Rocephin 1 Gm / 100 Ml Nacl Administered 01/06/24 12:44 Dose 1 gm in 100 mls @ ud IV .K-MED ONE Lab/Rad Data: Laboratory Result Diagrams 01/06/24 10:41 01/06/24 11:20 Laboratory Results 01/06/24 01/06/24 01/06/24 Range/Units 11:20 11:20 11:20 WBC (4.0-10.5) x10^3/uL RBC (4.1-5.6) x10^6/uL Hgb (12.5-18.0) g/dL Hct (42-50) % MCV (78-100) fL MCH (26-32) pg MCHC (32-36) g/dL RDW (11.5-14.0) % Plt Count (150-450) x10^3/uL MPV (7.5-11.0) fL Gran % (36.0-66.0) % Immature Gran % (Auto) (0.00-0.4) % Nucleat RBC Rel Count (0.00-0.1) % Eos # (Auto) (0-0.5) x10^3/uL Immature Gran # (Auto) (0.00-0.03) x10^3u/L Absolute Lymphs (auto) (1.0-4.6) x10^3/uL Absolute Monos (auto) (0.0-1.3) x10^3/uL Absolute Nucleated RBC (0.00-0.01) x10^3u/L Lymphocytes % (24.0-44.0) % Monocytes % (0.0-12.0) % Eosinophils % (0.00-5.0) % Basophils % (0.0-0.4) % Absolute Granulocytes (1.4-6.9) x10^3/uL Basophils # (0-0.4) x10^3/uL Sodium 142 (135-145) mmol/L Potassium 4.2 (3.5-5.1) mmol/L Chloride 113 H (98-107) mmol/L Carbon Dioxide 25 (22-30) mmol/L Anion Gap 9.0 (5-15) MEQ/L BUN 23 H (9-20) mg/dL Creatinine 0.79 (0.66-1.25) mg/dL Estimated GFR 92.6 ML/MIN Glucose 108 H (74-106) mg/dL Calcium 8.2 L (8.4-10.2) mg/dL Magnesium 2.2 (1.6-2.3) mg/dL Total Bilirubin 0.30 (0.2-1.3) mg/dL AST 20 (17-59) U/L ALT 10 (0-50) U/L Alkaline Phosphatase 151 H (38-126) U/L Ammonia < 9 L (9-30) umol/L Serum Total Protein 6.7 (6.3-8.2) g/dL Albumin 3.3 L (3.5-5.0) g/dL Urine Color (Yellow) Urine Appearance (Clear) Urine pH (4.6-8.0) Ur Specific [place] (1.005-1.030) Urine Protein (Negative) Urine Glucose (UA) (Negative) mg/dL Urine Ketones (Negative) Urine Blood (Negative) Urine Nitrite (Negative) Urine Bilirubin (Negative) Urine Urobilinogen (0.2) mg/dL Ur Leukocyte Esterase (Negative) U Hyaline Cast (Auto) (0-2) /LPF Urine Microscopic RBC (0-5) /HPF Urine Microscopic WBC (0-5) /HPF Ur Epithelial Cells (None Seen) /HPF Urine Bacteria (None Seen) /HPF Urine Culture Reflexed (NO) Monoscreen POSITIVE (NEGATIVE) Influenza Type A Ag (NEGATIVE) Influenza Type B Ag (NEGATIVE) RSV (PCR) (NEGATIVE) SARS-CoV-2 (PCR) (NEGATIVE) 01/06/24 01/06/24 01/06/24 Range/Units 11:18 10:42 10:41 WBC 7.1 (4.0-10.5) x10^3/uL RBC 3.16 L (4.1-5.6) x10^6/uL Hgb 9.8 L (12.5-18.0) g/dL Hct 32.4 L (42-50) % MCV 102.5 H (78-100) fL MCH 31.0 (26-32) pg MCHC 30.2 L (32-36) g/dL RDW 14.6 H (11.5-14.0) % Plt Count 249 (150-450) x10^3/uL MPV 10.4 (7.5-11.0) fL Gran % 71.5 H (36.0-66.0) % Immature Gran % (Auto) 0.4 (0.00-0.4) % Nucleat RBC Rel Count 0.0 (0.00-0.1) % Eos # (Auto) 0.40 (0-0.5) x10^3/uL Immature Gran # (Auto) 0.03 (0.00-0.03) x10^3u/L Absolute Lymphs (auto) 0.97 L (1.0-4.6) x10^3/uL Absolute Monos (auto) 0.56 (0.0-1.3) x10^3/uL Absolute Nucleated RBC 0.00 (0.00-0.01) x10^3u/L Lymphocytes % 13.6 L (24.0-44.0) % Monocytes % 7.9 (0.0-12.0) % Eosinophils % 5.6 H (0.00-5.0) % Basophils % 1.0 (0.0-0.4) % Absolute Granulocytes 5.10 (1.4-6.9) x10^3/uL Basophils # 0.07 (0-0.4) x10^3/uL Sodium (135-145) mmol/L Potassium (3.5-5.1) mmol/L Chloride (98-107) mmol/L Carbon Dioxide (22-30) mmol/L Anion Gap (5-15) MEQ/L BUN (9-20) mg/dL Creatinine (0.66-1.25) mg/dL Estimated GFR ML/MIN Glucose (74-106) mg/dL Calcium (8.4-10.2) mg/dL Magnesium (1.6-2.3) mg/dL Total Bilirubin (0.2-1.3) mg/dL AST (17-59) U/L ALT (0-50) U/L Alkaline Phosphatase (38-126) U/L Ammonia (9-30) umol/L Serum Total Protein (6.3-8.2) g/dL Albumin (3.5-5.0) g/dL Urine Color Dark Yellow (Yellow) Urine Appearance Clear (Clear) Urine pH 5.5 (4.6-8.0) Ur Specific [place] >=1.030 A (1.005-1.030) Urine Protein Trace A (Negative) Urine Glucose (UA) Negative (Negative) mg/dL Urine Ketones Trace A (Negative) Urine Blood NHT (Negative) Urine Nitrite Negative (Negative) Urine Bilirubin Negative (Negative) Urine Urobilinogen 1.0 A (0.2) mg/dL Ur Leukocyte Esterase Trace A (Negative) U Hyaline Cast (Auto) 3-5 A (0-2) /LPF Urine Microscopic RBC 6-10 A (0-5) /HPF Urine Microscopic WBC 11-20 A (0-5) /HPF Ur Epithelial Cells None Seen (None Seen) /HPF Urine Bacteria None Seen (None Seen) /HPF Urine Culture Reflexed ORDERED SEPARATELY (NO) Monoscreen (NEGATIVE) Influenza Type A Ag NEGATIVE (NEGATIVE) Influenza Type B Ag NEGATIVE (NEGATIVE) RSV (PCR) NEGATIVE (NEGATIVE) SARS-CoV-2 (PCR) NEGATIVE (NEGATIVE) - Progress Progress: improved, re-examined Progress Note: 01/06/24 10:53 My medical decision making and assignment of this patient's medical issue at moderate to high complexity was based on review of the patient's past medical history, review of the patient's medication list, review of patient drug allergy list, history of present illness and physical findings on examination. The workup in this patient includes placement of an intravenous line, infusion of normal saline solution, lactic acid level, ammonia level, CBC, CMP, urinalysis, blood culture, twelve-lead EKG, magnesium level, viral swabs, CT scan of the head without contrast. Differential diagnosis includes CVA, elevated ammonia level, infection, electrolyte abnormalities, dehydration 01/06/24 11:38 CT scan of the head without contrast was interpreted by the radiologist and I reviewed the impression. There is motion artifact present. Grossly stable nonacute senile brain with large old left parietal and old bilateral basal ganglier lacunar infarcts. Paranasal sinus disease present. Chest x-ray was interpreted by the radiologist and I reviewed the impression. The portable chest x-ray findings are clear without any new or acute cysts. 01/06/24 13:21 I spoke with our telehospitalist, Dr. Richey. I reviewed the patient history, presenting complaint, laboratory and radiographic workup results and response to our intervention. He agrees to place this patient in observation. Counseled pt/family regarding: lab results, diagnosis, rad results Medical Desision Making - Discussion of managment Reviewed:: Test results, Need for additional workup Agreed on:: Treatment plan, place in obs - Diagnostic Testing Diagnostic test were ordered, analyzed, and reviewed by me: Yes Radiological Interpretation: Reviewed by me, Teleradiologist Report - Risk of complications The pt has a high risk of morbidity or mortality based on: Decision regarding hospitilization or escalation of hosp level of care - Departure Departure Disposition: Observation Clinical Impression: Altered mental status, UTI (urinary tract infection), Mononucleosis, Dehydration, Lethargy Condition: Fair Critical Care Time: No Referrals: WENDI WISE MD [Primary Care Provider] - Follow up/PCP as directed
[2024-01-06] MEDS ORDERED: Sodium Chloride 0.9% 1000 ML 1,000 ML ONE (10:56)
[2024-01-06] MEDS: Sodium Chloride 0.9% 1000 ML 1,000 ML IV SCH ×2 (10:57→19:31)
[2024-01-06 11:11] LABS: Appearance Clear (Clear); Bacteria None Seen /HPF (None Seen); Bilirubin Negative (Negative); Blood NHT (Negative); Epithelial Cells None Seen /HPF (None Seen); Glucose, Urine Negative (Negative); Ketones Trace (Negative); Leukocyte Esterase Trace (Negative); Nitrite Negative (Negative); Ph 5.5 (4.6-8.0); Protein,Urine Dip Trace (Negative); Specific Gravity >=1.030 (1.005-1.030)
[2024-01-06 11:13] LABS: ADD URINE CULTURE? ORDERED SEPARATELY (NO)
--- NOTE | 2024-01-06 11:16 | XRAY ---
Indication: Altered mental status. Comparison: November 30, 2023 Portable chest now hyperinflated and remains clear. Heart not enlarged again with tortuous descending aorta. Bony thorax intact again with osteopenia, degenerative changes, and old left clavicle fracture. No new/acute findings.
--- NOTE | 2024-01-06 11:18 | XRAY ---
Indication: Altered mental status pain lethargy. Multiple contiguous images obtained through the head without contrast. Comparison: December 01, 2023 Study slightly degraded by motion artifact. Grossly stable age-appropriate global atrophy, large old left parietal lobe infarct, and old bilateral basal ganglia lacunar infarcts. No acute intracranial hemorrhage, hydrocephalus, or mass effect. Bony calvarium intact. Again moderate paranasal sinus disease including both ethmoid, left sphenoid, and left maxillary sinuses. Mastoid air cells are clear. Impression: Motion artifact. Grossly stable nonacute senile brain again with large old left parietal infarct and old bilateral basal ganglia lacunar infarcts. Again incidental paranasal sinus disease.
[2024-01-06 11:45] LABS: Basophil (Absolute #) 0.07 x10^3/uL (0-0.4); Eosinophil % 5.6 % (0.00-5.0); Hematocrit 32.4 % (42-50); Hemoglobin 9.8 g/dL (12.5-18.0); IMMATURE GRAN # 0.03 x10^3u/L (0.00-0.03); IMMATURE GRAN % 0.4 % (0.00-0.4); Lymphocyte (Absolute #) 0.97 x10^3/uL (1.0-4.6); Lymphocytes % 13.6 % (24.0-44.0); Mean Cell Volume 102.5 fL (78-100); Mean Corpuscular Hgb Concent. 30.2 g/dL (32-36); Mean Platelet Volume 10.4 fL (7.5-11.0); Monocyte (Absolute #) 0.56 x10^3/uL (0.0-1.3); Monocytes % 7.9 % (0.0-12.0); Neutrophil % 71.5 % (36.0-66.0); Platelet Count 249 x10^3/uL (150-450); Red Blood Count 3.16 x10^6/uL (4.1-5.6); Red Cell Distribution Width 14.6 % (11.5-14.0); White Blood Count 7.1 x10^3/uL (4.0-10.5)
[2024-01-06 12:05] LABS: ALBUMIN 3.3 g/dL (3.5-5.0); BILIRUBIN,TOTAL 0.3 mg/dL (0.2-1.3); Calcium 8.2 mg/dL (8.4-10.2); Creatinine 1 0.79 mg/dL (0.66-1.25); EST GLOMERULAR FILTRATION RATE 92.6 ML/MIN; MAGNESIUM 2.2 mg/dL (1.6-2.3); Potassium 4.2 mmol/L (3.5-5.1); Total Protein 6.7 g/dL (6.3-8.2)
[2024-01-06] MEDS ORDERED: ROCEPHIN 1 GM / 100 ML NaCl 0 GM/0 ML IVPB IV ONE (12:43)
[2024-01-06] MEDS: ROCEPHIN 1 GM / 100 ML NaCl 1 GM/100 ML IVPB IV ONE (12:47)
[2024-01-06 12:49] LABS: INFLUENZA A NEGATIVE (NEGATIVE); INFLUENZA B NEGATIVE (NEGATIVE); RESPIRATORY SYNCTIAL VIRUS NEGATIVE (NEGATIVE); SARS-CoV-2 Xpert Express NEGATIVE (NEGATIVE)
[2024-01-06] MEDS ORDERED: ROCEPHIN 1 GM / 100 ML NaCl 1 GM/100 ML IVPB IV ONE (13:21)
--- NOTE | 2024-01-06 15:35 | PCM.HP ---
History of Present Illness - Chief Complaint Chief Complaint: ams, uti, mono Date: 01/06/24 History of Present Illness: is a 73 year old male with pmhx of stroke with right hemiparesis (WC bound/ right hand contracted), dementia, HLD, HTN, and anxiety/depression who presented to ED 01/06/24 via EMS from [facility] experiencing lethargy and altered mental status. Patient is very lethargic on exam although he is responding to questions when asked. He is A&O to self only, unsure what his baseline is normally. He denies any complaints other than feeling more tired than normal and mouth pain due to his teeth being pulled about a month ago. Will confirm this with SNF, he does have dried blood in his mouth on exam. Denies fever,cough, sob, cp, abdominal pain, MEZA, dizziness, N/V/D. In ED, vitals stable. EKG interpreted by ED physician showing Sinus Rhythm, NORMAL AXIS, NORMAL INTERVALS, NORMAL QRS, NORMAL ST-T, No acute ischemic changes. CXR and Head CT with no acute findings. Lab findings with macrocytic anemia with hgb at 9.8. UA with trace leuks, and monoscreen positive. Admission for UTI, [place], AMS. Patient has received 1.5L of fluid, normal lactate. Ceftriaxone given in ED. - Review of Systems Constitutional: Lethargy, Weakness Eyes: No Symptoms Ears, Nose, & Throat: Mouth Pain Respiratory: No Symptoms Cardiac: No Symptoms Abdominal/Gastrointestinal: No Symptoms Genitourinary Symptoms: No Symptoms Musculoskeletal: Other (h/o stroke with right hemiparesis) Skin: No Symptoms Neurological: Lethargy Psychological: No Symptoms Endocrine: No Symptoms Hematologic/Lymphatic: No Symptoms Immunological/Allergic: No Symptoms Medications & Allergies Home Medications: Home Medication List Lisinopril 20 mg [Zestril 20 MG] 20 mg PO DAILY 04/02/15 [History Confirmed 01/06/24] Acetaminophen [Tylenol] 650 mg PO DAILY 11/30/23 [History Confirmed 01/06/24] Acetaminophen [Tylenol] 650 mg PO Q6HPRN PRN 11/30/23 [History Confirmed 01/06/24] Atorvastatin Calcium 20 mg PO HS 11/30/23 [History Confirmed 01/06/24] Balsam Thompsons/Toxey Oil [Venelex Ointment] 30 gm TP UD PRN 11/30/23 [History Confirmed 01/06/24] Betamethasone Dipropionate [Diprosone CREAM 0.05% ] 15 gm TP Q12H PRN 11/30/23 [History Confirmed 01/06/24] Donepezil HCl 10 mg [Aricept 10 MG] 10 mg PO HS 11/30/23 [History Confirmed 01/06/24] Escitalopram Oxalate [Lexapro] 10 mg PO DAILY 11/30/23 [History Confirmed 01/06/24] Melatonin 5 mg PO HS 11/30/23 [History Confirmed 01/06/24] Menthol/Zinc Oxide [Calmoseptine Ointment Packet] 3.5 gm TP QID PRN 11/30/23 [History Confirmed 01/06/24] Multivitamin [Multiple Vitamins] 1 each PO DAILY 11/30/23 [History Confirmed 01/06/24] OLANZapine [Olanzapine] 5 mg PO BID 11/30/23 [History Confirmed 01/06/24] Selenium Sulfide [Selsun Blue] 325 ml TP UD 11/30/23 [History Confirmed 01/06/24] Apixaban [Eliquis] 5 mg PO BID 01/06/24 [History Confirmed 01/06/24] Allergies/Adverse Reactions: Allergies Allergy/AdvReac Type Severity Reaction Status Date / Time No Known Drug Allergies Allergy Unverified 04/02/15 12:34 - Past Medical History Past Medical History: Yes Neurological History: Stroke ENT History: No Pertinent History Cardiac History: High Cholesterol, Hypertension, Other Respiratory History: No Pertinent History Endocrine Medical History: No Pertinent History Musculoskelatal History: No Pertinent History GI Medical History: No Pertinent History History: No Pertinent History Pyscho-Social History: Anxiety, Depression Male Reproductive Disorders: Prostate Problems Comment: right hemiparesis - Past Surgical History Past Surgical History: No Neuro Surgical History: No Pertinent History Cardiac History: No Pertinent History Respiratory Surgery: No Pertinent History GI Surgical History: No Pertinent History Genitourinary Surgical Hx: No Pertinent History Musculskeletal Surgical Hx: No Pertinent History Male Surgical History: No Pertinent History Other Surgical History: unable to complete surgery history - Social History Smoking Status: Never smoker Exposure to second hand smoke: No Alcohol: None Drug Use: none - Social Determinants of Health Will the patient participate in the screening: Unable to obtain Do you worry about a steady place to live?: No In the past 12 months,have you had to go without utilities?: No Have you or anyone in your house had to go without enough: No Transportation Issues: No Has anyone in your support network made you feel unsafe?: No Does the patient want assistance with any of the above?: No - Physical Exam Vital Signs: Vital Signs - 24 hr Temp Pulse Resp BP BP Pulse Ox 01/06/24 15:00 68 19 164/71 97 01/06/24 14:31 63 15 138/80 97 01/06/24 14:01 97.3 F 74 15 137/81 01/06/24 13:30 66 17 161/89 01/06/24 13:01 97 F 70 18 154/83 01/06/24 12:30 66 23 130/72 01/06/24 12:00 72 18 138/93 98 01/06/24 11:50 68 14 01/06/24 11:40 65 16 93 L 01/06/24 11:32 63 20 01/06/24 11:19 67 15 150/79 95 01/06/24 10:41 99 01/06/24 10:31 67 14 120/75 99 01/06/24 10:16 96.4 F 64 19 110/58 110/58 99 General Appearance: no apparent distress Neurologic Exam: alert, cooperative, motor deficits (right hemiparesis), sensory deficit, confusion Eye Exam: PERRL/EOMI Ears, Nose, Throat Exam: dry mucous membranes Neck Exam: limited range of motion Respiratory Exam: normal breath sounds, lungs clear Cardiovascular Exam: regular rate/rhythm, normal heart sounds Gastrointestinal/Abdomen Exam: soft, normal bowel sounds Rectal Exam: deferred Back Exam: decreased range of motion Extremity Exam: other ( right hemiparesis/right contracted hand) Skin Exam: pale Results - Labs Lab/Micro Results: Lab Results-Last 24 Hours 01/06/24 01/06/24 01/06/24 Range/Units 10:41 10:42 11:18 WBC 7.1 (4.0-10.5) x10^3/uL RBC 3.16 L (4.1-5.6) x10^6/uL Hgb 9.8 L (12.5-18.0) g/dL Hct 32.4 L (42-50) % MCV 102.5 H (78-100) fL MCH 31.0 (26-32) pg MCHC 30.2 L (32-36) g/dL RDW 14.6 H (11.5-14.0) % Plt Count 249 (150-450) x10^3/uL MPV 10.4 (7.5-11.0) fL Gran % 71.5 H (36.0-66.0) % Immature Gran % (Auto) 0.4 (0.00-0.4) % Nucleat RBC Rel Count 0.0 (0.00-0.1) % Eos # (Auto) 0.40 (0-0.5) x10^3/uL Immature Gran # (Auto) 0.03 (0.00-0.03) x10^3u/L Absolute Lymphs (auto) 0.97 L (1.0-4.6) x10^3/uL Absolute Monos (auto) 0.56 (0.0-1.3) x10^3/uL Absolute Nucleated RBC 0.00 (0.00-0.01) x10^3u/L Lymphocytes % 13.6 L (24.0-44.0) % Monocytes % 7.9 (0.0-12.0) % Eosinophils % 5.6 H (0.00-5.0) % Basophils % 1.0 (0.0-0.4) % Absolute Granulocytes 5.10 (1.4-6.9) x10^3/uL Basophils # 0.07 (0-0.4) x10^3/uL Sodium (135-145) mmol/L Potassium (3.5-5.1) mmol/L Chloride (98-107) mmol/L Carbon Dioxide (22-30) mmol/L Anion Gap (5-15) MEQ/L BUN (9-20) mg/dL Creatinine (0.66-1.25) mg/dL Estimated GFR ML/MIN Glucose (74-106) mg/dL Lactic Acid (0.4-2.0) Calcium (8.4-10.2) mg/dL Magnesium (1.6-2.3) mg/dL Total Bilirubin (0.2-1.3) mg/dL AST (17-59) U/L ALT (0-50) U/L Alkaline Phosphatase (38-126) U/L Ammonia (9-30) umol/L Serum Total Protein (6.3-8.2) g/dL Albumin (3.5-5.0) g/dL Urine Color Dark Yellow (Yellow) Urine Appearance Clear (Clear) Urine pH 5.5 (4.6-8.0) Ur Specific Anthony >=1.030 A (1.005-1.030) Urine Protein Trace A (Negative) Urine Glucose (UA) Negative (Negative) mg/dL Urine Ketones Trace A (Negative) Urine Blood NHT (Negative) Urine Nitrite Negative (Negative) Urine Bilirubin Negative (Negative) Urine Urobilinogen 1.0 A (0.2) mg/dL Ur Leukocyte Esterase Trace A (Negative) U Hyaline Cast (Auto) 3-5 A (0-2) /LPF Urine Microscopic RBC 6-10 A (0-5) /HPF Urine Microscopic WBC 11-20 A (0-5) /HPF Ur Epithelial Cells None Seen (None Seen) /HPF Urine Bacteria None Seen (None Seen) /HPF Urine Culture Reflexed ORDERED SEPARATELY (NO) Monoscreen (NEGATIVE) Influenza Type A Ag NEGATIVE (NEGATIVE) Influenza Type B Ag NEGATIVE (NEGATIVE) RSV (PCR) NEGATIVE (NEGATIVE) SARS-CoV-2 (PCR) NEGATIVE (NEGATIVE) 01/06/24 01/06/24 01/06/24 Range/Units 11:20 11:20 11:20 WBC (4.0-10.5) x10^3/uL RBC (4.1-5.6) x10^6/uL Hgb (12.5-18.0) g/dL Hct (42-50) % MCV (78-100) fL MCH (26-32) pg MCHC (32-36) g/dL RDW (11.5-14.0) % Plt Count (150-450) x10^3/uL MPV (7.5-11.0) fL Gran % (36.0-66.0) % Immature Gran % (Auto) (0.00-0.4) % Nucleat RBC Rel Count (0.00-0.1) % Eos # (Auto) (0-0.5) x10^3/uL Immature Gran # (Auto) (0.00-0.03) x10^3u/L Absolute Lymphs (auto) (1.0-4.6) x10^3/uL Absolute Monos (auto) (0.0-1.3) x10^3/uL Absolute Nucleated RBC (0.00-0.01) x10^3u/L Lymphocytes % (24.0-44.0) % Monocytes % (0.0-12.0) % Eosinophils % (0.00-5.0) % Basophils % (0.0-0.4) % Absolute Granulocytes (1.4-6.9) x10^3/uL Basophils # (0-0.4) x10^3/uL Sodium 142 (135-145) mmol/L Potassium 4.2 (3.5-5.1) mmol/L Chloride 113 H (98-107) mmol/L Carbon Dioxide 25 (22-30) mmol/L Anion Gap 9.0 (5-15) MEQ/L BUN 23 H (9-20) mg/dL Creatinine 0.79 (0.66-1.25) mg/dL Estimated GFR 92.6 ML/MIN Glucose 108 H (74-106) mg/dL Lactic Acid (0.4-2.0) Calcium 8.2 L (8.4-10.2) mg/dL Magnesium 2.2 (1.6-2.3) mg/dL Total Bilirubin 0.30 (0.2-1.3) mg/dL AST 20 (17-59) U/L ALT 10 (0-50) U/L Alkaline Phosphatase 151 H (38-126) U/L Ammonia < 9 L (9-30) umol/L Serum Total Protein 6.7 (6.3-8.2) g/dL Albumin 3.3 L (3.5-5.0) g/dL Urine Color (Yellow) Urine Appearance (Clear) Urine pH (4.6-8.0) Ur Specific Anthony (1.005-1.030) Urine Protein (Negative) Urine Glucose (UA) (Negative) mg/dL Urine Ketones (Negative) Urine Blood (Negative) Urine Nitrite (Negative) Urine Bilirubin (Negative) Urine Urobilinogen (0.2) mg/dL Ur Leukocyte Esterase (Negative) U Hyaline Cast (Auto) (0-2) /LPF Urine Microscopic RBC (0-5) /HPF Urine Microscopic WBC (0-5) /HPF Ur Epithelial Cells (None Seen) /HPF Urine Bacteria (None Seen) /HPF Urine Culture Reflexed (NO) Monoscreen POSITIVE (NEGATIVE) Influenza Type A Ag (NEGATIVE) Influenza Type B Ag (NEGATIVE) RSV (PCR) (NEGATIVE) SARS-CoV-2 (PCR) (NEGATIVE) 01/06/24 Range/Units 15:10 WBC (4.0-10.5) x10^3/uL RBC (4.1-5.6) x10^6/uL Hgb (12.5-18.0) g/dL Hct (42-50) % MCV (78-100) fL MCH (26-32) pg MCHC (32-36) g/dL RDW (11.5-14.0) % Plt Count (150-450) x10^3/uL MPV (7.5-11.0) fL Gran % (36.0-66.0) % Immature Gran % (Auto) (0.00-0.4) % Nucleat RBC Rel Count (0.00-0.1) % Eos # (Auto) (0-0.5) x10^3/uL Immature Gran # (Auto) (0.00-0.03) x10^3u/L Absolute Lymphs (auto) (1.0-4.6) x10^3/uL Absolute Monos (auto) (0.0-1.3) x10^3/uL Absolute Nucleated RBC (0.00-0.01) x10^3u/L Lymphocytes % (24.0-44.0) % Monocytes % (0.0-12.0) % Eosinophils % (0.00-5.0) % Basophils % (0.0-0.4) % Absolute Granulocytes (1.4-6.9) x10^3/uL Basophils # (0-0.4) x10^3/uL Sodium (135-145) mmol/L Potassium (3.5-5.1) mmol/L Chloride (98-107) mmol/L Carbon Dioxide (22-30) mmol/L Anion Gap (5-15) MEQ/L BUN (9-20) mg/dL Creatinine (0.66-1.25) mg/dL Estimated GFR ML/MIN Glucose (74-106) mg/dL Lactic Acid 1.0 (0.4-2.0) Calcium (8.4-10.2) mg/dL Magnesium (1.6-2.3) mg/dL Total Bilirubin (0.2-1.3) mg/dL AST (17-59) U/L ALT (0-50) U/L Alkaline Phosphatase (38-126) U/L Ammonia (9-30) umol/L Serum Total Protein (6.3-8.2) g/dL Albumin (3.5-5.0) g/dL Urine Color (Yellow) Urine Appearance (Clear) Urine pH (4.6-8.0) Ur Specific Anthony (1.005-1.030) Urine Protein (Negative) Urine Glucose (UA) (Negative) mg/dL Urine Ketones (Negative) Urine Blood (Negative) Urine Nitrite (Negative) Urine Bilirubin (Negative) Urine Urobilinogen (0.2) mg/dL Ur Leukocyte Esterase (Negative) U Hyaline Cast (Auto) (0-2) /LPF Urine Microscopic RBC (0-5) /HPF Urine Microscopic WBC (0-5) /HPF Ur Epithelial Cells (None Seen) /HPF Urine Bacteria (None Seen) /HPF Urine Culture Reflexed (NO) Monoscreen (NEGATIVE) Influenza Type A Ag (NEGATIVE) Influenza Type B Ag (NEGATIVE) RSV (PCR) (NEGATIVE) SARS-CoV-2 (PCR) (NEGATIVE) - Radiology Impressions Radiology Exams & Impressions: Radiology Procedures Category Date Time Status CHEST 1 VIEW (PORTABLE) Stat Exams 01/06/24 10:42 Completed HEAD WITHOUT CONTRAST [CT] Stat Exams 01/06/24 10:42 Completed Assessment/Plan (1) UTI (urinary tract infection) Current Visit: Yes Status: Acute Assessment & Plan: -UA mildly suspicious for infection, ceftriaxone given in ED, will continue, follow culutre -d/c dover Code(s): N39.0 - URINARY TRACT INFECTION, SITE NOT SPECIFIED (2) Mononucleosis Current Visit: Yes Status: Acute Assessment & Plan: -supportive therapy - analgesics -LFTs/PLT wnl, will monitor Code(s): B27.90 - INFECTIOUS MONONUCLEOSIS, UNSPECIFIED WITHOUT COMPLICATION (3) Altered mental status Current Visit: Yes Status: Acute Assessment & Plan: -CT with no acute findings -ammonia level wnl -blood and urine cultures pending -May be secondary to infection,UA mildly suspicious with trace leuks, will monitor, consider MRI if no improvement -TSH, b12/fol, cortisol --Med review -Blood glucose level Code(s): R41.82 - ALTERED MENTAL STATUS, UNSPECIFIED (4) HTN (hypertension) Current Visit: Yes Status: Acute Assessment & Plan: -intermittent hypotension, will monitor and continue appropriate home meds Code(s): I10 - ESSENTIAL (PRIMARY) HYPERTENSION (5) Dehydration Current Visit: Yes Status: Acute Assessment & Plan: -Gentle hydration -Monitor I&O Code(s): E86.0 - DEHYDRATION Telemedicine Encounter - Telemedicine Encounter Telemedicine Encounter: The entirety of this encounter was performed via Telemedicine"
[2024-01-06] MEDS ORDERED: FEVERALL 650 MG PR PRN (15:41)
[2024-01-06] MEDS ORDERED: Zofran 4 MG/2 ML VIAL IV PRN ×2 (15:41→16:07)
[2024-01-06] MEDS: Dextrose 5%-NS IV Solution 1000 ML 1,000 ML IV SCH (17:19)
[2024-01-06] MEDS: PROTONIX 40 MG IV IV SCH (17:19)
[2024-01-06 17:36] LABS: TSH, 3RD Generation 0.102 mIU/L (0.470-4.680); Vitamin B12 383 pg/mL (239-931)
[2024-01-06 17:48] LABS: A-aADO2 33; ABG HEMOGLOBIN 9.1; ABG POTASSIUM 4.1 (3.5-5.1); ABG SITE RIGHT BRACHIAL; ARTERIAL BLD GAS O2 SATURATION 99.7 % (95-100); ARTERIAL BLOOD GAS BASE EXCESS 2.5 (-2.0-2.0); ARTERIAL BLOOD GAS FIO2 28 %; ARTERIAL BLOOD GAS PCO2 49 mmHg (35-45); ARTERIAL BLOOD GAS PO2 105 mmHg (75-100); ARTERIAL BLOOD GAS pH 7.37 (7.35-7.45); CARBOXYHEMOGLOBIN 1.4 % THgb (0.0-6.9); HCO3- 28.3 (22-28); HGB O2 SAT 97.2 g/dF (94-100); Methhemoglobin 1.1 % (1.4-1.5); paO2 pAO1 0.76
[2024-01-06] MEDS: ELIQUIS 2.5 MG TABLET PO SCH (21:06)
[2024-01-06] MEDS: ZOCOR 20MG PO SCH (21:06)
[2024-01-06] MEDS: Lexapro PO SCH (21:06)
[2024-01-06] MEDS: Aricept 10 MG PO SCH (21:06)
[2024-01-06] MEDS: Zestril 20 MG PO SCH (21:06)
[2024-01-06] MEDS: THERAGRAN MULTIVITAMIN PO SCH (21:06)
[2024-01-06 21:39] LABS: Folate (Folic Acid) > 16.6 ng/mL (2.76 - >20)
[2024-01-06] MEDS ORDERED: zyPREXA 5MG TABLET PO SCH (22:00)
[2024-01-07 06:03] LABS: Absolute Neutrophil Ct (ANC) 4.21 x10^3/uL (1.4-6.9); BASOPHIL % 0.9 % (0.0-0.4); Basophil (Absolute #) 0.05 x10^3/uL (0-0.4); Eosinophil % 4.6 % (0.00-5.0); Eosinophil (Absolute #) 0.27 x10^3/uL (0-0.5); Hematocrit 29.5 % (42-50); Hemoglobin 8.6 g/dL (12.5-18.0); IMMATURE GRAN # 0.03 x10^3u/L (0.00-0.03); IMMATURE GRAN % 0.5 % (0.00-0.4); Lymphocyte (Absolute #) 0.79 x10^3/uL (1.0-4.6); Lymphocytes % 13.5 % (24.0-44.0); Mean Cell Volume 102.8 fL (78-100); Mean Corpuscular Hgb Concent. 29.2 g/dL (32-36); Mean Platelet Volume 10.2 fL (7.5-11.0); Monocyte (Absolute #) 0.49 x10^3/uL (0.0-1.3); Monocytes % 8.4 % (0.0-12.0); Neutrophil % 72.1 % (36.0-66.0); Platelet Count 230 x10^3/uL (150-450); Red Blood Count 2.87 x10^6/uL (4.1-5.6); Red Cell Distribution Width 14.5 % (11.5-14.0); White Blood Count 5.8 x10^3/uL (4.0-10.5)
[2024-01-07 06:44] LABS: ALBUMIN 2.7 g/dL (3.5-5.0); ANION GAP 5.9 MEQ/L (5-15); BILIRUBIN,TOTAL 0.4 mg/dL (0.2-1.3); Calcium 8.5 mg/dL (8.4-10.2); Creatinine 1 0.67 mg/dL (0.66-1.25); EST GLOMERULAR FILTRATION RATE 97.4 ML/MIN; Total Protein 5.7 g/dL (6.3-8.2)
[2024-01-07] MEDS ORDERED: ROCEPHIN 1 GM / 100 ML NaCl 1 GM/100 ML IVPB IV SCH (10:00)
--- NOTE | 2024-01-07 11:03 | PCM.DS ---
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 Patient is very lethargic on exam although he is responding to questions when asked. He is A&O to self only, unsure what his baseline is normally. He denies any complaints other than feeling more tired than normal and mouth pain due to his teeth being pulled about a month ago. Will confirm this with SNF, he does have dried blood in his mouth on exam. Denies fever,cough, sob, cp, abdominal pain, MEZA, dizziness, N/V/D.In ED, vitals stable. EKG interpreted by ED physician showing Sinus Rhythm, NORMAL AXIS, NORMAL INTERVALS, NORMAL QRS, NORMAL ST-T, No acute ischemic changes. CXR and Head CT with no acute findings. Lab findings with macrocytic anemia with hgb at 9.8. UA with trace leuks, and monoscreen positive. Admission for UTI, [place], AMS. Patient has received 1.5L of fluid, normal lactate. Ceftriaxone given in ED. Patient now at baseline mentation. Ucult negative to date. Patient stable for discharge. Will send with cefdinir, follow culture, will update NH with any changes to abx. Supportive therapy for mono infection. (1) UTI (urinary tract infection) Current Visit: Yes Status: Acute Assessment & Plan: -UA mildly suspicious for infection, ceftriaxone given in ED, will continue, follow culutre -d/c dover Code(s): N39.0 - URINARY TRACT INFECTION, SITE NOT SPECIFIED (2) Mononucleosis Current Visit: Yes Status: Acute Assessment & Plan: -supportive therapy - analgesics -LFTs/PLT wnl, will monitor Code(s): B27.90 - INFECTIOUS MONONUCLEOSIS, UNSPECIFIED WITHOUT COMPLICATION (3) Altered mental status Current Visit: Yes Status: Acute Assessment & Plan: -CT with no acute findings -ammonia level wnl -blood and urine cultures pending -May be secondary to infection,UA mildly suspicious with trace leuks, will monitor, consider MRI if no improvement -TSH, b12/fol, cortisol --Med review -Blood glucose level Code(s): R41.82 - ALTERED MENTAL STATUS, UNSPECIFIED (4) HTN (hypertension) Current Visit: Yes Status: Acute Assessment & Plan: -intermittent hypotension, will monitor and continue appropriate home meds Code(s): I10 - ESSENTIAL (PRIMARY) HYPERTENSION (5) Dehydration Current Visit: Yes Status: Acute Assessment & Plan: -Gentle hydration -Monitor I&O - Vitals & Intake/Output Vital Signs: Vital Signs Temperature 97.7 F 01/07/24 08:00 Pulse Rate 69 01/07/24 08:00 Respiratory Rate 20 01/07/24 08:00 Blood Pressure 118/55 01/07/24 08:00 O2 Sat by Pulse Oximetry 97 01/07/24 08:46 Intake & Output: Intake & Output 01/04/24 01/05/24 01/06/24 01/07/24 11:59 11:59 11:59 11:59 Intake Total 2183 Output Total 30 230 Balance -1952 Weight 65.3 kg 64 kg - Lab Result Diagrams: 01/07/24 05:26 01/07/24 05:26 Lab Results-Last 24 Hrs: Lab Results-Last 24 Hours 01/06/24 01/06/24 01/06/24 Range/Units 10:41 10:42 11:18 WBC 7.1 (4.0-10.5) x10^3/uL RBC 3.16 L (4.1-5.6) x10^6/uL Hgb 9.8 L (12.5-18.0) g/dL Hct 32.4 L (42-50) % MCV 102.5 H (78-100) fL MCH 31.0 (26-32) pg MCHC 30.2 L (32-36) g/dL RDW 14.6 H (11.5-14.0) % Plt Count 249 (150-450) x10^3/uL MPV 10.4 (7.5-11.0) fL Gran % 71.5 H (36.0-66.0) % Immature Gran % (Auto) 0.4 (0.00-0.4) % Nucleat RBC Rel Count 0.0 (0.00-0.1) % Eos # (Auto) 0.40 (0-0.5) x10^3/uL Immature Gran # (Auto) 0.03 (0.00-0.03) x10^3u/L Absolute Lymphs (auto) 0.97 L (1.0-4.6) x10^3/uL Absolute Monos (auto) 0.56 (0.0-1.3) x10^3/uL Absolute Nucleated RBC 0.00 (0.00-0.01) x10^3u/L Lymphocytes % 13.6 L (24.0-44.0) % Monocytes % 7.9 (0.0-12.0) % Eosinophils % 5.6 H (0.00-5.0) % Basophils % 1.0 (0.0-0.4) % Absolute Granulocytes 5.10 (1.4-6.9) x10^3/uL Basophils # 0.07 (0-0.4) x10^3/uL Puncture Site pCO2 (35-45) mmHg pO2 (75-100) mmHg Base Excess (-2.0-2.0) O2 Saturation (94-100) g/dF ABG pH (7.35-7.45) ABG HCO3 (22-28) ABG O2 Sat (Measured) (95-100) % Toy Test A-a Gradient a/A Ratio Hemoglobin Carboxyhemoglobin (0.0-6.9) % THgb Methemoglobin (1.4-1.5) % Temperature C POC O2 Flow Rate % Sodium (135-145) mmol/L Potassium (3.5-5.1) mmol/L Chloride (98-107) mmol/L Carbon Dioxide (22-30) mmol/L Anion Gap (5-15) MEQ/L BUN (9-20) mg/dL Creatinine (0.66-1.25) mg/dL Estimated GFR ML/MIN Glucose (74-106) mg/dL POC Glucometer (74 to 106) mg/dL Hemoglobin A1c (4.5-6.0) % Lactic Acid (0.4-2.0) Calcium (8.4-10.2) mg/dL Magnesium (1.6-2.3) mg/dL Total Bilirubin (0.2-1.3) mg/dL AST (17-59) U/L ALT (0-50) U/L Alkaline Phosphatase (38-126) U/L Ammonia (9-30) umol/L NT-Pro-B Natriuret Pep (<300) pg/mL Serum Total Protein (6.3-8.2) g/dL Albumin (3.5-5.0) g/dL Vitamin B12 (239-931) pg/mL Folic Acid (2.76 - >20) ng/mL Free T4 (0.78-2.19) ng/dL TSH 3rd Generation (0.470-4.680) mIU/L Urine Color Dark Yellow (Yellow) Urine Appearance Clear (Clear) Urine pH 5.5 (4.6-8.0) Ur Specific [place] >=1.030 A (1.005-1.030) Urine Protein Trace A (Negative) Urine Glucose (UA) Negative (Negative) mg/dL Urine Ketones Trace A (Negative) Urine Blood NHT (Negative) Urine Nitrite Negative (Negative) Urine Bilirubin Negative (Negative) Urine Urobilinogen 1.0 A (0.2) mg/dL Ur Leukocyte Esterase Trace A (Negative) U Hyaline Cast (Auto) 3-5 A (0-2) /LPF Urine Microscopic RBC 6-10 A (0-5) /HPF Urine Microscopic WBC 11-20 A (0-5) /HPF Ur Epithelial Cells None Seen (None Seen) /HPF Urine Bacteria None Seen (None Seen) /HPF Urine Culture Reflexed ORDERED SEPARATELY (NO) Monoscreen (NEGATIVE) Influenza Type A Ag NEGATIVE (NEGATIVE) Influenza Type B Ag NEGATIVE (NEGATIVE) RSV (PCR) NEGATIVE (NEGATIVE) SARS-CoV-2 (PCR) NEGATIVE (NEGATIVE) Group A Strep Antibody (NEGATIVE) 01/06/24 01/06/24 01/06/24 Range/Units 11:20 11:20 11:20 WBC (4.0-10.5) x10^3/uL RBC (4.1-5.6) x10^6/uL Hgb (12.5-18.0) g/dL Hct (42-50) % MCV (78-100) fL MCH (26-32) pg MCHC (32-36) g/dL RDW (11.5-14.0) % Plt Count (150-450) x10^3/uL MPV (7.5-11.0) fL Gran % (36.0-66.0) % Immature Gran % (Auto) (0.00-0.4) % Nucleat RBC Rel Count (0.00-0.1) % Eos # (Auto) (0-0.5) x10^3/uL Immature Gran # (Auto) (0.00-0.03) x10^3u/L Absolute Lymphs (auto) (1.0-4.6) x10^3/uL Absolute Monos (auto) (0.0-1.3) x10^3/uL Absolute Nucleated RBC (0.00-0.01) x10^3u/L Lymphocytes % (24.0-44.0) % Monocytes % (0.0-12.0) % Eosinophils % (0.00-5.0) % Basophils % (0.0-0.4) % Absolute Granulocytes (1.4-6.9) x10^3/uL Basophils # (0-0.4) x10^3/uL Puncture Site pCO2 (35-45) mmHg pO2 (75-100) mmHg Base Excess (-2.0-2.0) O2 Saturation (94-100) g/dF ABG pH (7.35-7.45) ABG HCO3 (22-28) ABG O2 Sat (Measured) (95-100) % Toy Test A-a Gradient a/A Ratio Hemoglobin Carboxyhemoglobin (0.0-6.9) % THgb Methemoglobin (1.4-1.5) % Temperature C POC O2 Flow Rate % Sodium 142 (135-145) mmol/L Potassium 4.2 (3.5-5.1) mmol/L Chloride 113 H (98-107) mmol/L Carbon Dioxide 25 (22-30) mmol/L Anion Gap 9.0 (5-15) MEQ/L BUN 23 H (9-20) mg/dL Creatinine 0.79 (0.66-1.25) mg/dL Estimated GFR 92.6 ML/MIN Glucose 108 H (74-106) mg/dL POC Glucometer (74 to 106) mg/dL Hemoglobin A1c (4.5-6.0) % Lactic Acid (0.4-2.0) Calcium 8.2 L (8.4-10.2) mg/dL Magnesium 2.2 (1.6-2.3) mg/dL Total Bilirubin 0.30 (0.2-1.3) mg/dL AST 20 (17-59) U/L ALT 10 (0-50) U/L Alkaline Phosphatase 151 H (38-126) U/L Ammonia < 9 L (9-30) umol/L NT-Pro-B Natriuret Pep (<300) pg/mL Serum Total Protein 6.7 (6.3-8.2) g/dL Albumin 3.3 L (3.5-5.0) g/dL Vitamin B12 (239-931) pg/mL Folic Acid (2.76 - >20) ng/mL Free T4 (0.78-2.19) ng/dL TSH 3rd Generation (0.470-4.680) mIU/L Urine Color (Yellow) Urine Appearance (Clear) Urine pH (4.6-8.0) Ur Specific [place] (1.005-1.030) Urine Protein (Negative) Urine Glucose (UA) (Negative) mg/dL Urine Ketones (Negative) Urine Blood (Negative) Urine Nitrite (Negative) Urine Bilirubin (Negative) Urine Urobilinogen (0.2) mg/dL Ur Leukocyte Esterase (Negative) U Hyaline Cast (Auto) (0-2) /LPF Urine Microscopic RBC (0-5) /HPF Urine Microscopic WBC (0-5) /HPF Ur Epithelial Cells (None Seen) /HPF Urine Bacteria (None Seen) /HPF Urine Culture Reflexed (NO) Monoscreen POSITIVE (NEGATIVE) Influenza Type A Ag (NEGATIVE) Influenza Type B Ag (NEGATIVE) RSV (PCR) (NEGATIVE) SARS-CoV-2 (PCR) (NEGATIVE) Group A Strep Antibody (NEGATIVE) 01/06/24 01/06/24 01/06/24 Range/Units 15:10 16:42 17:00 WBC (4.0-10.5) x10^3/uL RBC (4.1-5.6) x10^6/uL Hgb (12.5-18.0) g/dL Hct (42-50) % MCV (78-100) fL MCH (26-32) pg MCHC (32-36) g/dL RDW (11.5-14.0) % Plt Count (150-450) x10^3/uL MPV (7.5-11.0) fL Gran % (36.0-66.0) % Immature Gran % (Auto) (0.00-0.4) % Nucleat RBC Rel Count (0.00-0.1) % Eos # (Auto) (0-0.5) x10^3/uL Immature Gran # (Auto) (0.00-0.03) x10^3u/L Absolute Lymphs (auto) (1.0-4.6) x10^3/uL Absolute Monos (auto) (0.0-1.3) x10^3/uL Absolute Nucleated RBC (0.00-0.01) x10^3u/L Lymphocytes % (24.0-44.0) % Monocytes % (0.0-12.0) % Eosinophils % (0.00-5.0) % Basophils % (0.0-0.4) % Absolute Granulocytes (1.4-6.9) x10^3/uL Basophils # (0-0.4) x10^3/uL Puncture Site pCO2 (35-45) mmHg pO2 (75-100) mmHg Base Excess (-2.0-2.0) O2 Saturation (94-100) g/dF ABG pH (7.35-7.45) ABG HCO3 (22-28) ABG O2 Sat (Measured) (95-100) % Toy Test A-a Gradient a/A Ratio Hemoglobin Carboxyhemoglobin (0.0-6.9) % THgb Methemoglobin (1.4-1.5) % Temperature C POC O2 Flow Rate % Sodium (135-145) mmol/L Potassium (3.5-5.1) mmol/L Chloride (98-107) mmol/L Carbon Dioxide (22-30) mmol/L Anion Gap (5-15) MEQ/L BUN (9-20) mg/dL Creatinine (0.66-1.25) mg/dL Estimated GFR ML/MIN Glucose (74-106) mg/dL POC Glucometer 75 (74 to 106) mg/dL Hemoglobin A1c (4.5-6.0) % Lactic Acid 1.0 (0.4-2.0) Calcium (8.4-10.2) mg/dL Magnesium (1.6-2.3) mg/dL Total Bilirubin (0.2-1.3) mg/dL AST (17-59) U/L ALT (0-50) U/L Alkaline Phosphatase (38-126) U/L Ammonia (9-30) umol/L NT-Pro-B Natriuret Pep (<300) pg/mL Serum Total Protein (6.3-8.2) g/dL Albumin (3.5-5.0) g/dL Vitamin B12 (239-931) pg/mL Folic Acid (2.76 - >20) ng/mL Free T4 (0.78-2.19) ng/dL TSH 3rd Generation (0.470-4.680) mIU/L Urine Color (Yellow) Urine Appearance (Clear) Urine pH (4.6-8.0) Ur Specific [place] (1.005-1.030) Urine Protein (Negative) Urine Glucose (UA) (Negative) mg/dL Urine Ketones (Negative) Urine Blood (Negative) Urine Nitrite (Negative) Urine Bilirubin (Negative) Urine Urobilinogen (0.2) mg/dL Ur Leukocyte Esterase (Negative) U Hyaline Cast (Auto) (0-2) /LPF Urine Microscopic RBC (0-5) /HPF Urine Microscopic WBC (0-5) /HPF Ur Epithelial Cells (None Seen) /HPF Urine Bacteria (None Seen) /HPF Urine Culture Reflexed (NO) Monoscreen (NEGATIVE) Influenza Type A Ag (NEGATIVE) Influenza Type B Ag (NEGATIVE) RSV (PCR) (NEGATIVE) SARS-CoV-2 (PCR) (NEGATIVE) Group A Strep Antibody NOT DETECTED (NEGATIVE) 01/06/24 01/06/24 01/06/24 Range/Units 17:35 19:54 23:40 WBC (4.0-10.5) x10^3/uL RBC (4.1-5.6) x10^6/uL Hgb (12.5-18.0) g/dL Hct (42-50) % MCV (78-100) fL MCH (26-32) pg MCHC (32-36) g/dL RDW (11.5-14.0) % Plt Count (150-450) x10^3/uL MPV (7.5-11.0) fL Gran % (36.0-66.0) % Immature Gran % (Auto) (0.00-0.4) % Nucleat RBC Rel Count (0.00-0.1) % Eos # (Auto) (0-0.5) x10^3/uL Immature Gran # (Auto) (0.00-0.03) x10^3u/L Absolute Lymphs (auto) (1.0-4.6) x10^3/uL Absolute Monos (auto) (0.0-1.3) x10^3/uL Absolute Nucleated RBC (0.00-0.01) x10^3u/L Lymphocytes % (24.0-44.0) % Monocytes % (0.0-12.0) % Eosinophils % (0.00-5.0) % Basophils % (0.0-0.4) % Absolute Granulocytes (1.4-6.9) x10^3/uL Basophils # (0-0.4) x10^3/uL Puncture Site RIGHT BRACHIAL pCO2 49 H (35-45) mmHg pO2 105 H (75-100) mmHg Base Excess 2.5 H (-2.0-2.0) O2 Saturation 97.2 (94-100) g/dF ABG pH 7.37 (7.35-7.45) ABG HCO3 28.3 H (22-28) ABG O2 Sat (Measured) 99.7 (95-100) % Toy Test NOT APPLICABLE A-a Gradient 33 a/A Ratio 0.76 Hemoglobin 9.1 Carboxyhemoglobin 1.4 (0.0-6.9) % THgb Methemoglobin 1.1 L (1.4-1.5) % Temperature 37.0 C POC O2 Flow Rate 28 % Sodium (135-145) mmol/L Potassium 4.1 (3.5-5.1) mmol/L Chloride (98-107) mmol/L Carbon Dioxide (22-30) mmol/L Anion Gap (5-15) MEQ/L BUN (9-20) mg/dL Creatinine (0.66-1.25) mg/dL Estimated GFR ML/MIN Glucose (74-106) mg/dL POC Glucometer 88 90 (74 to 106) mg/dL Hemoglobin A1c (4.5-6.0) % Lactic Acid (0.4-2.0) Calcium (8.4-10.2) mg/dL Magnesium (1.6-2.3) mg/dL Total Bilirubin (0.2-1.3) mg/dL AST (17-59) U/L ALT (0-50) U/L Alkaline Phosphatase (38-126) U/L Ammonia (9-30) umol/L NT-Pro-B Natriuret Pep (<300) pg/mL Serum Total Protein (6.3-8.2) g/dL Albumin (3.5-5.0) g/dL Vitamin B12 (239-931) pg/mL Folic Acid (2.76 - >20) ng/mL Free T4 (0.78-2.19) ng/dL TSH 3rd Generation (0.470-4.680) mIU/L Urine Color (Yellow) Urine Appearance (Clear) Urine pH (4.6-8.0) Ur Specific [place] (1.005-1.030) Urine Protein (Negative) Urine Glucose (UA) (Negative) mg/dL Urine Ketones (Negative) Urine Blood (Negative) Urine Nitrite (Negative) Urine Bilirubin (Negative) Urine Urobilinogen (0.2) mg/dL Ur Leukocyte Esterase (Negative) U Hyaline Cast (Auto) (0-2) /LPF Urine Microscopic RBC (0-5) /HPF Urine Microscopic WBC (0-5) /HPF Ur Epithelial Cells (None Seen) /HPF Urine Bacteria (None Seen) /HPF Urine Culture Reflexed (NO) Monoscreen (NEGATIVE) Influenza Type A Ag (NEGATIVE) Influenza Type B Ag (NEGATIVE) RSV (PCR) (NEGATIVE) SARS-CoV-2 (PCR) (NEGATIVE) Group A Strep Antibody (NEGATIVE) 01/06/24 01/06/24 01/07/24 Range/Units Unknown Unknown 04:28 WBC (4.0-10.5) x10^3/uL RBC (4.1-5.6) x10^6/uL Hgb (12.5-18.0) g/dL Hct (42-50) % MCV (78-100) fL MCH (26-32) pg MCHC (32-36) g/dL RDW (11.5-14.0) % Plt Count (150-450) x10^3/uL MPV (7.5-11.0) fL Gran % (36.0-66.0) % Immature Gran % (Auto) (0.00-0.4) % Nucleat RBC Rel Count (0.00-0.1) % Eos # (Auto) (0-0.5) x10^3/uL Immature Gran # (Auto) (0.00-0.03) x10^3u/L Absolute Lymphs (auto) (1.0-4.6) x10^3/uL Absolute Monos (auto) (0.0-1.3) x10^3/uL Absolute Nucleated RBC (0.00-0.01) x10^3u/L Lymphocytes % (24.0-44.0) % Monocytes % (0.0-12.0) % Eosinophils % (0.00-5.0) % Basophils % (0.0-0.4) % Absolute Granulocytes (1.4-6.9) x10^3/uL Basophils # (0-0.4) x10^3/uL Puncture Site pCO2 (35-45) mmHg pO2 (75-100) mmHg Base Excess (-2.0-2.0) O2 Saturation (94-100) g/dF ABG pH (7.35-7.45) ABG HCO3 (22-28) ABG O2 Sat (Measured) (95-100) % Toy Test A-a Gradient a/A Ratio Hemoglobin Carboxyhemoglobin (0.0-6.9) % THgb Methemoglobin (1.4-1.5) % Temperature C POC O2 Flow Rate % Sodium (135-145) mmol/L Potassium (3.5-5.1) mmol/L Chloride (98-107) mmol/L Carbon Dioxide (22-30) mmol/L Anion Gap (5-15) MEQ/L BUN (9-20) mg/dL Creatinine (0.66-1.25) mg/dL Estimated GFR ML/MIN Glucose (74-106) mg/dL POC Glucometer 82 (74 to 106) mg/dL Hemoglobin A1c 5.14 (4.5-6.0) % Lactic Acid (0.4-2.0) Calcium (8.4-10.2) mg/dL Magnesium (1.6-2.3) mg/dL Total Bilirubin (0.2-1.3) mg/dL AST (17-59) U/L ALT (0-50) U/L Alkaline Phosphatase (38-126) U/L Ammonia (9-30) umol/L NT-Pro-B Natriuret Pep (<300) pg/mL Serum Total Protein (6.3-8.2) g/dL Albumin (3.5-5.0) g/dL Vitamin B12 383 (239-931) pg/mL Folic Acid > 16.6 (2.76 - >20) ng/mL Free T4 (0.78-2.19) ng/dL TSH 3rd Generation 0.102 L (0.470-4.680) mIU/L Urine Color (Yellow) Urine Appearance (Clear) Urine pH (4.6-8.0) Ur Specific [place] (1.005-1.030) Urine Protein (Negative) Urine Glucose (UA) (Negative) mg/dL Urine Ketones (Negative) Urine Blood (Negative) Urine Nitrite (Negative) Urine Bilirubin (Negative) Urine Urobilinogen (0.2) mg/dL Ur Leukocyte Esterase (Negative) U Hyaline Cast (Auto) (0-2) /LPF Urine Microscopic RBC (0-5) /HPF Urine Microscopic WBC (0-5) /HPF Ur Epithelial Cells (None Seen) /HPF Urine Bacteria (None Seen) /HPF Urine Culture Reflexed (NO) Monoscreen (NEGATIVE) Influenza Type A Ag (NEGATIVE) Influenza Type B Ag (NEGATIVE) RSV (PCR) (NEGATIVE) SARS-CoV-2 (PCR) (NEGATIVE) Group A Strep Antibody (NEGATIVE) 01/07/24 01/07/24 01/07/24 Range/Units 05:00 05:26 05:26 WBC 5.8 (4.0-10.5) x10^3/uL RBC 2.87 L (4.1-5.6) x10^6/uL Hgb 8.6 L (12.5-18.0) g/dL Hct 29.5 L (42-50) % MCV 102.8 H (78-100) fL MCH 30.0 (26-32) pg MCHC 29.2 L (32-36) g/dL RDW 14.5 H (11.5-14.0) % Plt Count 230 (150-450) x10^3/uL MPV 10.2 (7.5-11.0) fL Gran % 72.1 H (36.0-66.0) % Immature Gran % (Auto) 0.5 H (0.00-0.4) % Nucleat RBC Rel Count 0.0 (0.00-0.1) % Eos # (Auto) 0.27 (0-0.5) x10^3/uL Immature Gran # (Auto) 0.03 (0.00-0.03) x10^3u/L Absolute Lymphs (auto) 0.79 L (1.0-4.6) x10^3/uL Absolute Monos (auto) 0.49 (0.0-1.3) x10^3/uL Absolute Nucleated RBC 0.00 (0.00-0.01) x10^3u/L Lymphocytes % 13.5 L (24.0-44.0) % Monocytes % 8.4 (0.0-12.0) % Eosinophils % 4.6 (0.00-5.0) % Basophils % 0.9 (0.0-0.4) % Absolute Granulocytes 4.21 (1.4-6.9) x10^3/uL Basophils # 0.05 (0-0.4) x10^3/uL Puncture Site pCO2 (35-45) mmHg pO2 (75-100) mmHg Base Excess (-2.0-2.0) O2 Saturation (94-100) g/dF ABG pH (7.35-7.45) ABG HCO3 (22-28) ABG O2 Sat (Measured) (95-100) % Toy Test A-a Gradient a/A Ratio Hemoglobin Carboxyhemoglobin (0.0-6.9) % THgb Methemoglobin (1.4-1.5) % Temperature C POC O2 Flow Rate % Sodium 143 (135-145) mmol/L Potassium 4.0 (3.5-5.1) mmol/L Chloride 110 H (98-107) mmol/L Carbon Dioxide 31 H (22-30) mmol/L Anion Gap 5.9 (5-15) MEQ/L BUN 14 (9-20) mg/dL Creatinine 0.67 (0.66-1.25) mg/dL Estimated GFR 97.4 ML/MIN Glucose 102 (74-106) mg/dL POC Glucometer (74 to 106) mg/dL Hemoglobin A1c (4.5-6.0) % Lactic Acid (0.4-2.0) Calcium 8.5 (8.4-10.2) mg/dL Magnesium (1.6-2.3) mg/dL Total Bilirubin 0.40 (0.2-1.3) mg/dL AST 22 (17-59) U/L ALT 10 (0-50) U/L Alkaline Phosphatase 119 (38-126) U/L Ammonia (9-30) umol/L NT-Pro-B Natriuret Pep 1050 (<300) pg/mL Serum Total Protein 5.7 L (6.3-8.2) g/dL Albumin 2.7 L (3.5-5.0) g/dL Vitamin B12 (239-931) pg/mL Folic Acid (2.76 - >20) ng/mL Free T4 1.37 (0.78-2.19) ng/dL TSH 3rd Generation (0.470-4.680) mIU/L Urine Color (Yellow) Urine Appearance (Clear) Urine pH (4.6-8.0) Ur Specific [place] (1.005-1.030) Urine Protein (Negative) Urine Glucose (UA) (Negative) mg/dL Urine Ketones (Negative) Urine Blood (Negative) Urine Nitrite (Negative) Urine Bilirubin (Negative) Urine Urobilinogen (0.2) mg/dL Ur Leukocyte Esterase (Negative) U Hyaline Cast (Auto) (0-2) /LPF Urine Microscopic RBC (0-5) /HPF Urine Microscopic WBC (0-5) /HPF Ur Epithelial Cells (None Seen) /HPF Urine Bacteria (None Seen) /HPF Urine Culture Reflexed (NO) Monoscreen (NEGATIVE) Influenza Type A Ag (NEGATIVE) Influenza Type B Ag (NEGATIVE) RSV (PCR) (NEGATIVE) SARS-CoV-2 (PCR) (NEGATIVE) Group A Strep Antibody (NEGATIVE) 01/07/24 01/07/24 Range/Units 05:26 08:04 WBC (4.0-10.5) x10^3/uL RBC (4.1-5.6) x10^6/uL Hgb (12.5-18.0) g/dL Hct (42-50) % MCV (78-100) fL MCH (26-32) pg MCHC (32-36) g/dL RDW (11.5-14.0) % Plt Count (150-450) x10^3/uL MPV (7.5-11.0) fL Gran % (36.0-66.0) % Immature Gran % (Auto) (0.00-0.4) % Nucleat RBC Rel Count (0.00-0.1) % Eos # (Auto) (0-0.5) x10^3/uL Immature Gran # (Auto) (0.00-0.03) x10^3u/L Absolute Lymphs (auto) (1.0-4.6) x10^3/uL Absolute Monos (auto) (0.0-1.3) x10^3/uL Absolute Nucleated RBC (0.00-0.01) x10^3u/L Lymphocytes % (24.0-44.0) % Monocytes % (0.0-12.0) % Eosinophils % (0.00-5.0) % Basophils % (0.0-0.4) % Absolute Granulocytes (1.4-6.9) x10^3/uL Basophils # (0-0.4) x10^3/uL Puncture Site pCO2 (35-45) mmHg pO2 (75-100) mmHg Base Excess (-2.0-2.0) O2 Saturation (94-100) g/dF ABG pH (7.35-7.45) ABG HCO3 (22-28) ABG O2 Sat (Measured) (95-100) % Toy Test A-a Gradient a/A Ratio Hemoglobin Carboxyhemoglobin (0.0-6.9) % THgb Methemoglobin (1.4-1.5) % Temperature C POC O2 Flow Rate % Sodium (135-145) mmol/L Potassium (3.5-5.1) mmol/L Chloride (98-107) mmol/L Carbon Dioxide (22-30) mmol/L Anion Gap (5-15) MEQ/L BUN (9-20) mg/dL Creatinine (0.66-1.25) mg/dL Estimated GFR ML/MIN Glucose (74-106) mg/dL POC Glucometer 89 (74 to 106) mg/dL Hemoglobin A1c (4.5-6.0) % Lactic Acid (0.4-2.0) Calcium (8.4-10.2) mg/dL Magnesium (1.6-2.3) mg/dL Total Bilirubin (0.2-1.3) mg/dL AST (17-59) U/L ALT (0-50) U/L Alkaline Phosphatase (38-126) U/L Ammonia (9-30) umol/L NT-Pro-B Natriuret Pep (<300) pg/mL Serum Total Protein (6.3-8.2) g/dL Albumin (3.5-5.0) g/dL Vitamin B12 (239-931) pg/mL Folic Acid (2.76 - >20) ng/mL Free T4 (0.78-2.19) ng/dL TSH 3rd Generation 0.088 L (0.470-4.680) mIU/L Urine Color (Yellow) Urine Appearance (Clear) Urine pH (4.6-8.0) Ur Specific [place] (1.005-1.030) Urine Protein (Negative) Urine Glucose (UA) (Negative) mg/dL Urine Ketones (Negative) Urine Blood (Negative) Urine Nitrite (Negative) Urine Bilirubin (Negative) Urine Urobilinogen (0.2) mg/dL Ur Leukocyte Esterase (Negative) U Hyaline Cast (Auto) (0-2) /LPF Urine Microscopic RBC (0-5) /HPF Urine Microscopic WBC (0-5) /HPF Ur Epithelial Cells (None Seen) /HPF Urine Bacteria (None Seen) /HPF Urine Culture Reflexed (NO) Monoscreen (NEGATIVE) Influenza Type A Ag (NEGATIVE) Influenza Type B Ag (NEGATIVE) RSV (PCR) (NEGATIVE) SARS-CoV-2 (PCR) (NEGATIVE) Group A Strep Antibody (NEGATIVE) Micro Results-Entire Visit: Microbiology 01/06/24 10:42 Urine Culture - Preliminary Catherized NO GROWTH TO DATE 01/06/24 11:30 Blood Culture Gram Stain - Preliminary Blood 01/06/24 11:20 Blood Culture Gram Stain - Preliminary Blood Accuchecks Date 01/07/24 Date 01/06/24 Time 08:54 Time 16:52 - Radiology Exams Ordered Rad Exams-Entire Visit: Radiology Procedures Category Date Time Status CHEST 1 VIEW (PORTABLE) Stat Exams 01/06/24 10:42 Completed HEAD WITHOUT CONTRAST [CT] Stat Exams 01/06/24 10:42 Completed - Procedures and Test Procedures and Tests throughout Hospitalization: Therapy Orders & Screens 01/06/24 16:07 PT Eval & Treat ( Order) ONCE Reason for Eval:: weakness Diagnosis: ams, uti, mono Respiratory Therapy Consult ONCE Comment: Reason For Exam: Diagnosis: ams, uti, mono 01/06/24 18:03 Oxygen Nasal Cannula 2 lpm Comment: Diagnosis: ams, uti, mono Discharge Exam General Appearance: no apparent distress Neurologic Exam: alert, cooperative, confusion Eye Exam: PERRL Ears, Nose, Throat Exam: dry mucous membranes Neck Exam: limited range of motion Respiratory Exam: normal breath sounds, lungs clear Cardiovascular Exam: regular rate/rhythm, normal heart sounds Gastrointestinal/Abdomen Exam: soft, normal bowel sounds Male Genitalia Exam: deferred Rectal Exam: deferred Back Exam: decreased range of motion Extremity Exam: other ((right hemiparesis)/contracture right hand) Skin Exam: pale Final Diagnosis/Problem List - Final Discharge Diagnosis/Problem (1) UTI (urinary tract infection) Current Visit: Yes Status: Acute Code(s): N39.0 - URINARY TRACT INFECTION, SITE NOT SPECIFIED (2) Mononucleosis Current Visit: Yes Status: Acute Code(s): B27.90 - INFECTIOUS MONONUCLEOSIS, UNSPECIFIED WITHOUT COMPLICATION (3) Altered mental status Current Visit: Yes Status: Acute Code(s): R41.82 - ALTERED MENTAL STATUS, UNSPECIFIED (4) HTN (hypertension) Current Visit: Yes Status: Acute Code(s): I10 - ESSENTIAL (PRIMARY) HYPERTENSION (5) Dehydration Current Visit: Yes Status: Acute Code(s): E86.0 - DEHYDRATION - Discharge Disposition: Home, Self-Care Condition: Fair Prescriptions: No Action Lisinopril 20 mg [Zestril 20 MG] 20 mg PO DAILY Escitalopram Oxalate [Lexapro] 10 mg PO DAILY Betamethasone Dipropionate [Diprosone CREAM 0.05% ] 15 gm TP Q12H PRN PRN Reason: Redness/Irritation Donepezil HCl 10 mg [Aricept 10 MG] 10 mg PO HS Atorvastatin Calcium 20 mg PO HS [place] Oil [Venelex Ointment] 30 gm TP UD PRN PRN Reason: Redness/Irritation Acetaminophen [Tylenol] 650 mg PO Q6HPRN PRN PRN Reason: Pain Selenium Sulfide [Selsun Blue] 325 ml TP UD OLANZapine [Olanzapine] 5 mg PO BID Multivitamin [Multiple Vitamins] 1 each PO DAILY Melatonin 5 mg PO HS Menthol/Zinc Oxide [Calmoseptine Ointment Packet] 3.5 gm TP QID PRN PRN Reason: Redness/Irritation Apixaban [Eliquis] 5 mg PO BID Follow up with: WENDI WISE MD [Primary Care Provider] -
--- NOTE | 2024-01-07 11:04 | PCM.DCORD ---
- Discharge Disposition: DC TO ANY "OTHER" LONGTERM Condition: Stable Prescriptions: New Cefdinir 300 mg PO BID PRN 5 Days #10 cap Continue Lisinopril 20 mg [Zestril 20 MG] 20 mg PO DAILY Escitalopram Oxalate [Lexapro] 10 mg PO DAILY Betamethasone Dipropionate [Diprosone CREAM 0.05% ] 15 gm TP Q12H PRN PRN Reason: Redness/Irritation Donepezil HCl 10 mg [Aricept 10 MG] 10 mg PO HS Atorvastatin Calcium 20 mg PO HS Balsam [place] Oil [Venelex Ointment] 30 gm TP UD PRN PRN Reason: Redness/Irritation Acetaminophen [Tylenol] 650 mg PO Q6HPRN PRN PRN Reason: Pain Selenium Sulfide [Selsun Blue] 325 ml TP UD OLANZapine [Olanzapine] 5 mg PO BID Multivitamin [Multiple Vitamins] 1 each PO DAILY Melatonin 5 mg PO HS Menthol/Zinc Oxide [Calmoseptine Ointment Packet] 3.5 gm TP QID PRN PRN Reason: Redness/Irritation Apixaban [Eliquis] 5 mg PO BID Follow up with: WENDI WISE MD [Primary Care Provider] -
[2024-01-07] MEDS: ROCEPHIN 2 GM/100 ML NACL 2 GM/100 ML IVPB IV SCH (11:21)
[2024-01-07 17:35] VITALS: BP 94/55; PULSE 62; RESP 17; TEMP 98.1; O2SAT 97
== END 2024-01-07 17:06 ==
LOC: ED 10:15 → MED SURG 15:30
PROVIDERS: ADMIT Internal Medicine; ATTEND Internal Medicine
DX: N39.0 Urinary tract infection, site not specified (principal); B27.90 Infectious mononucleosis, unspecified without complication; R41.82 Altered mental status, unspecified; E78.5 Hyperlipidemia, unspecified; I10 Essential (primary) hypertension; E86.0 Dehydration; I69.951 Hemiplegia and hemiparesis following unspecified cerebrovascular disease affecting right dominant side; N40.0 Benign prostatic hyperplasia without lower urinary tract symptoms; Z79.899 Other long term (current) drug therapy; Z20.828 Contact with and (suspected) exposure to other viral communicable diseases; Z79.01 Long term (current) use of anticoagulants
CPT/HCPCS: 0241U; 36000; 36415; 36600; 51702; 70450; 71045; 80053; 81001; 82140; 82375; 82533; 82607; 82746; 82803; 82947; 83036; 83605; 83735; 83880; 84439; 84443; 84479; 85025; 86308; 87040; 87077; 87086; 87186; 87651; 93005; 93041; 94760; 94762; 96360; 96365; 99284; G0378; Q3014; 96374; J0696; A9270-GY

== ENCOUNTER 2024-02-09 19:41 | Inpatient (IN) | payer MEDICARE, BC ==
[2024-02-09] MEDS ORDERED: DUONEB 0.5-3 MG/3 ml Neb IH ONE (20:06)
[2024-02-09] MEDS ORDERED: Sodium Chloride 0.9% 500 ML 500 ML IV ONE ×2 (20:07→22:03)
[2024-02-09] MEDS: Sodium Chloride 0.9% 500 ML 500 ML IV ONE ×2 (20:08→22:04)
[2024-02-09] MEDS: DUONEB 0.5-3 MG/3 ml Neb IH ONE (20:10)
[2024-02-09 20:25] LABS: Hematocrit 31.2 % (42-50); Hemoglobin 9.6 g/dL (12.5-18.0); Mean Cell Volume 96.3 fL (78-100); Mean Corpuscular Hemoglobin 29.6 pg (26-32); Mean Corpuscular Hgb Concent. 30.8 g/dL (32-36); Mean Platelet Volume 11.3 fL (7.5-11.0); Platelet Count 249 x10^3/uL (150-450); Red Blood Count 3.24 x10^6/uL (4.1-5.6); Red Cell Distribution Width 13.9 % (11.5-14.0)
[2024-02-09 20:27] LABS: White Blood Count 33.1 x10^3/uL (4.0-10.5)
--- NOTE | 2024-02-09 20:27 | ERPHSYRPT ---
- History of Present Illness Time Seen by Provider: 02/09/24 19:54 Source: patient, EMS, care home records Exam Limitations: clinical condition Patient Subjective Stated Complaint: EMS states that patient have lexa wheezing Triage Nursing Assessment: pt was brought into the er via ambulance; pt was transfer to cot per EMS staff; pt is axo; audible wheezing present; coarse lung sounds in all lobes; moist cough present; hypoxic; O2 on arrival was 86%; pt was put on 2L nasal cannula; O2 now 93% on 2L; skin pale, dry, warm; hypotensive Physician History: 73-year-old male resident of care home with history of dementia, 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 Patient has yellow-green productive cough. Patient was hypoxic with saturation around 86% on room air on EMS arrival, received a dose of 125 mg IV Solu-Medrol and DuoNeb in route and still saturation in the upper 80s. He is on 2 L oxygen. Patient has bilateral coarse crackles. Denies any pain. Patient is a poor historian and history is limited. Allergies/Adverse Reactions: No Known Drug Allergies Allergy (Verified 02/09/24 19:44) Home Medications: Lisinopril 20 mg [Zestril 20 MG] 20 mg PO DAILY 04/02/15 [History] Atorvastatin Calcium 20 mg PO HS 11/30/23 [History] Balsam [place]/Max Oil [Venelex Ointment] 30 gm TP UD PRN 11/30/23 [History] Betamethasone Dipropionate [Diprosone CREAM 0.05% ] 15 gm TP Q12H PRN 11/30/23 [History] Donepezil HCl 10 mg [Aricept 10 MG] 10 mg PO HS 11/30/23 [History] Escitalopram Oxalate [Lexapro] 20 mg PO DAILY 11/30/23 [History] Melatonin 5 mg PO HS 11/30/23 [History] Menthol/Zinc Oxide [Calmoseptine Ointment Packet] 3.5 gm TP QID PRN 11/30/23 [History] Multivitamin [Multiple Vitamins] 1 each PO DAILY 11/30/23 [History] Selenium Sulfide [Selsun Blue] 325 ml TP UD 11/30/23 [History] Apixaban [Eliquis] 5 mg PO BID 01/06/24 [History] Acetaminophen 325 mg [Tylenol 325 mg] 650 mg PO DAILY 02/09/24 [History] Acetaminophen 325 mg [Tylenol 325 mg] 650 mg PO Q6HPRN PRN 02/09/24 [History] Cefuroxime Axetil 500 mg [Ceftin 500 mg] 500 mg PO BID 02/09/24 [History] OLANZapine [Olanzapine] 2.5 mg PO BID 02/10/24 [History] Hx Tetanus, Diphtheria Vaccination/Date Given: No Hx Influenza Vaccination/Date Given: Yes Hx Pneumococcal Vaccination/Date Given: No Travel Risk - International Travel Have you traveled outside of the country in past 3 weeks: No - Emerging Infectious Disease Are you exhibiting symptoms associated with any current EIDs: Yes Symptoms: Shortness of Breath - Review of Systems All Other Systems: Unable due to dementia - Past Medical History Pertinent Past Medical History: Yes Neurological History: Dementia, Stroke ENT History: No Pertinent History Cardiac History: High Cholesterol, Hypertension, Other Respiratory History: No Pertinent History Endocrine Medical History: No Pertinent History Musculoskeletal History: No Pertinent History GI Medical History: No Pertinent History History: No Pertinent History Psycho-Social History: Anxiety, Depression Male Reproductive Disorders: Prostate Problems Other Medical History: right hemiparesis - Past Surgical History Past Surgical History: No Neuro Surgical History: No Pertinent History Cardiac: No Pertinent History Respiratory: No Pertinent History Gastrointestinal: No Pertinent History Genitourinary: No Pertinent History Musculoskeletal: No Pertinent History Male Surgical History: No Pertinent History Other Surgical History: unable to complete surgery history - Social History Smoking Status: Never smoker Exposure to second hand smoke: No Drug Use: none Patient Lives Alone: No - Nursing Vital Signs Nursing Vital Signs: Initial Vital Signs Temperature 98.8 F 02/09/24 19:42 Pulse Rate 114 H 02/09/24 19:42 Respiratory Rate 22 02/09/24 19:42 Blood Pressure 73/42 02/09/24 19:42 O2 Sat by Pulse Oximetry 86 L 02/09/24 19:42 - Physical Exam General Appearance: mild distress, alert Ears, Nose, Throat Exam: pharyngeal erythema Neck Exam: normal inspection, supple Respiratory Exam: diminished breath sounds, crackles/rales, rhonchi, wheezing Cardiovascular/Chest Exam: regular rate/rhythm, tachycardia Abdominal/Gastrointestinal Exam: soft, normal bowel sounds, No tenderness Extremity Exam: non-tender (Contractured right side) Neurologic Exam: alert, motor deficits, No oriented x 3, No sensation nml Skin Exam: normal color SpO2 Interpretation: hypoxic, O2 applied SpO2: 93 O2 Delivery: Nasal Cannula Procedures - Central Line Time Of Procedure: 22:41 Timeout: Performed Central Line Lumen: triple Lumen Size: 7 [place] Central Line Procedure: chlorahexadine prep, sterile drapes applied, sterile dressing applied, Aseptic Technique, Seldinger Technique Central Line Postion: femoral (R) Anesthesia: 1% Lidocaine cc's of anesthesia: 4 Ultrasound Guided Placement: Yes Complications: none Central Line Post Position: sutured, good blood return - Course EKG Interpreted by Me: RATE (93), Sinus Rhythm, NORMAL AXIS, prolonged QT interval, Non-specific ST Changes Ordered Tests: Medication Summary Generic Name Dose Route Start Last Admin Trade Name Freq PRN Reason Stop Dose Admin Acetaminophen 650 mg 02/10/24 13:54 Acetaminophen 650 Mg Supp.Rect OR 03/11/24 13:53 Q6H PRN PRN PAIN AND/OR FEVER Albuterol/Ipratropium 3 ml 02/11/24 19:00 02/13/24 07:21 Ipratropium/Albuterol Sulfate 3 Ml Ampul.[facility] 03/12/24 18:59 3 ml TIDRT LILO Administration Albuterol/Ipratropium 3 ml 02/11/24 18:27 Ipratropium/Albuterol Sulfate 3 Ml Ampul.Former[facility] 03/12/24 18:26 Q4HPRN PRN SHORTNESS OF BREATH/WHEEZING Donepezil HCl 10 mg 02/12/24 22:00 02/12/24 22:23 Donepezil Hcl 10 Mg Tablet PO 03/13/24 21:59 10 mg HS LILO Administration Enoxaparin Sodium 60 mg 02/10/24 14:00 02/12/24 10:07 Enoxaparin Sodium 60 Mg/0.6 Ml Syringe 1 mg/kg (60 mg) 03/11/24 13:59 60 mg SQ Administration DAILY LILO Escitalopram Oxalate 20 mg 02/12/24 14:00 02/12/24 14:02 Escitalopram Oxalate 10 Mg Tablet PO 03/13/24 13:59 20 mg DAILY LILO Administration Heparin Sodium (Beef Lung) 0 units 02/11/24 11:15 02/12/24 23:41 Heparin Lock Flush Pf 500 Units/5 Ml Syringe IV 03/12/24 11:14 500 units UD PRN Administration Hydrocortisone Sodium Succinate 100 mg 02/10/24 02:30 02/13/24 02:25 Hydrocortisone Sod Succinate 100 Mg/Vial Vial IV 03/11/24 02:29 100 mg Q8H LILO Administration Cefepime HCl 1 g/ Dextrose 100 mls @ 200 mls/hr 02/10/24 10:00 02/12/24 22:24 IV 03/11/24 09:59 200 mls/hr Q12HT LILO Administration Insulin Human Lispro 0 unit 02/10/24 16:28 Insulin Lispro 1 Unit SQ 03/11/24 16:27 UD PRN HYPERGLYCEMIA Melatonin 6 mg 02/10/24 22:00 Melatonin 3 Mg Tablet PO 03/11/24 21:59 HS LILO Multivitamins Therapeutic 1 tab 02/12/24 14:00 02/12/24 14:02 Multivitamins,Therapeutic 1 Tab Tab PO 03/13/24 13:59 1 tab DAILY LILO Administration Olanzapine 2.5 mg 02/10/24 10:00 Olanzapine 5 Mg Tab PO 03/11/24 09:59 BID LILO Simvastatin 20 mg 02/10/24 22:00 02/12/24 22:24 Simvastatin 20 Mg Tablet PO 03/11/24 21:59 20 mg HS LILO Administration Sodium Chloride 10 ml 02/11/24 11:15 02/12/24 13:39 Normal Saline 10 Ml Flush IV 03/12/24 11:14 10 ml PRN PRN Administration Discontinued Medications Generic Name Dose Route Start Last Admin Trade Name Freq PRN Reason Stop Dose Admin Acetaminophen 650 mg 02/10/24 02:24 Acetaminophen 325 Mg Tablet PO 03/11/24 02:23 Q6HPRN PRN PAIN Albuterol/Ipratropium 3 ml 02/09/24 19:59 02/09/24 20:10 Ipratropium/Albuterol Sulfate 3 Ml Ampul.Neb IH 02/09/24 20:00 3 ml STAT ONE Administration Albuterol/Ipratropium Confirm 02/09/24 20:06 Ipratropium/Albuterol Sulfate 3 Ml Ampul.Neb Administered 02/09/24 20:07 Dose 3 ml IH .STK-MED ONE Albuterol/Ipratropium 3 ml 02/10/24 03:00 02/11/24 14:30 Ipratropium/Albuterol Sulfate 3 Ml Ampul.Neb IH 03/11/24 02:59 3 ml Q4HRT LILO Administration Albuterol/Ipratropium Confirm 02/10/24 06:54 Ipratropium/Albuterol Sulfate 3 Ml Ampul.Neb Administered 02/10/24 06:55 Dose 3 ml IH .STK-MED ONE Apixaban 5 mg 02/10/24 10:00 02/10/24 14:19 Apixaban 2.5 Mg Tablet PO 03/11/24 09:59 Not Given BID LILO Donepezil HCl 10 mg 02/10/24 22:00 Donepezil Hcl 10 Mg Tablet PO 03/11/24 21:59 HS LILO Escitalopram Oxalate 20 mg 02/10/24 10:00 02/12/24 14:04 Escitalopram Oxalate 10 Mg Tablet PO 03/11/24 09:59 Not Given DAILY LILO Sodium Chloride 500 mls @ 500 mls/hr 02/09/24 20:00 02/09/24 21:53 Sodium Chloride 0.9% 500 Ml IV 02/09/24 20:59 Infused .Q1H ONE Infusion Sodium Chloride Confirm 02/09/24 20:07 Sodium Chloride 0.9% 500 Ml Administered 02/09/24 20:08 Dose 500 mls @ ud IV .STK-MED ONE Sodium Chloride 1,000 mls @ 999 mls/hr 02/09/24 20:36 02/09/24 21:54 Sodium Chloride 0.9% 1000 Ml IV 02/09/24 21:36 Infused .Q1H1M STA Infusion Sodium Chloride Confirm 02/09/24 20:38 Sodium Chloride 0.9% 1000 Ml Administered 02/09/24 20:39 Dose 1,000 mls @ ud .ROUTE .STK-MED ONE Azithromycin 500 mg in 250 mls @ 250 mls/hr 02/09/24 20:53 02/09/24 22:09 Zithromax 500 Mg/ 250 Ml Nacl Premix IV 02/09/24 21:52 Infused STAT STA Infusion Piperacillin Sod/Tazobactam 100 mls @ 200 mls/hr 02/09/24 20:53 02/09/24 21:12 Sod 2.25 gm/ Sodium Chloride IV 02/09/24 21:22 200 mls/hr STAT ONE Administration Sodium Chloride Confirm 02/09/24 21:05 Sodium Chloride 100ml Mini-Bag Plus Administered 02/09/24 21:06 Dose 100 mls @ ud IV .STK-MED ONE Azithromycin Confirm 02/09/24 21:07 Zithromax 500 Mg/ 250 Ml Nacl Premix Administered 02/09/24 21:08 Dose 500 mg in 250 mls @ ud IV .STK-MED ONE Sodium Chloride 500 mls @ 500 mls/hr 02/09/24 22:03 02/09/24 23:24 Sodium Chloride 0.9% 500 Ml IV 02/09/24 23:02 Infused .Q1H ONE Infusion Sodium Chloride Confirm 02/09/24 22:03 Sodium Chloride 0.9% 500 Ml Administered 02/09/24 22:04 Dose 500 mls @ ud IV .STK-MED ONE Norepinephrine/Dextrose Confirm 02/09/24 22:28 Norepinephrine 8 Mg/250 Ml-D5w Administered 02/09/24 22:29 Dose 8 mg in 250 mls @ ud IV .STK-MED ONE Norepinephrine/Dextrose 8 mg in 250 mls @ 15 mls/hr 02/09/24 22:30 02/12/24 06:46 Norepinephrine 8 Mg/250 Ml-D5w IV 03/10/24 22:29 0 mcg/min .[id number] PRN 0 mls/hr HYPOTENSION Titration Protocol 8 MCG/MIN Piperacillin Sod/Tazobactam 100 mls @ 200 mls/hr 02/10/24 06:00 Sod 3.375 gm/ Sodium Chloride IV 02/13/24 05:59 Q6HT LILO Levofloxacin/Dextrose 750 mg in 150 mls @ 100 mls/hr 02/10/24 10:00 Levofloxacin 750mg/150ml D5w IV 03/11/24 09:59 Q24H10 LILO Vancomycin HCl 1 gm in 200 mls @ 125 mls/hr 02/10/24 02:30 02/10/24 05:59 Vancomycin 1 Gram/200 Ml Bag IV 03/11/24 02:29 125 mls/hr Q12H LILO Administration Lactated Ringer's 1,000 mls @ 75 mls/hr 02/10/24 02:30 02/10/24 02:59 Lactated Ringers IV 03/11/24 02:29 75 mls/hr .[id number] LILO Administration Vancomycin HCl 500 mg/ Sodium 100 mls @ 100 mls/hr 02/11/24 06:00 02/11/24 06:09 Chloride IV 03/12/24 05:59 100 mls/hr Q24H LILO Administration Multivitamins/Minerals 10 ml/ 1,941 mls @ 80 mls/hr 02/10/24 15:00 02/11/24 14:47 ZINC/COPPER/MANGANESE/SELENIUM IV 03/11/24 14:59 80 mls/hr 1 ml/ Potassium Phosphate 44 .Q24H LILO Administration meq/ Amino Acids/Electrolytes/ Dextrose Vancomycin HCl 1 gm in 200 mls @ 133.333 mls/hr 02/11/24 18:00 02/11/24 17:43 Vancomycin 1 Gram/200 Ml Bag IV 03/12/24 17:59 133.333 mls/hr Q18H LILO Administration Sodium Chloride 1,000 mls @ 999 mls/hr 02/11/24 13:36 02/11/24 13:45 Sodium Chloride 0.9% 1000 Ml IV 02/11/24 14:36 999 mls/hr .Q1H1M STA Administration Sodium Chloride Confirm 02/11/24 13:37 Sodium Chloride 0.9% 1000 Ml Administered 02/11/24 13:38 Dose 1,000 mls @ ud .ROUTE .STK-MED ONE Multivitamins Therapeutic 1 tab 02/10/24 10:00 02/12/24 14:05 Multivitamins,Therapeutic 1 Tab Tab PO 03/11/24 09:59 Not Given DAILY LILO Non-Formulary Medication 1 each 02/10/24 13:41 02/10/24 14:21 Pharmacy Dosing Request [facility] 02/10/24 13:42 1 each STAT ONE Administration Lab/Rad Data: Laboratory Result Diagrams 02/09/24 20:11 02/09/24 20:11 Laboratory Results 02/09/24 02/09/24 02/09/24 Range/Units 21:05 20:18 20:11 WBC (4.0-10.5) x10^3/uL RBC (4.1-5.6) x10^6/uL Hgb (12.5-18.0) g/dL Hct (42-50) % MCV (78-100) fL MCH (26-32) pg MCHC (32-36) g/dL RDW (11.5-14.0) % Plt Count (150-450) x10^3/uL MPV (7.5-11.0) fL Segmented Neutrophils (36.-66.) % Lymphocytes (Manual) (24-44) % Platelet Estimate (NORMAL) RBC Morphology Anisocytosis Smear Path Review Sodium (135-145) mmol/L Potassium (3.5-5.1) mmol/L Chloride (98-107) mmol/L Carbon Dioxide (22-30) mmol/L Anion Gap (5-15) MEQ/L BUN (9-20) mg/dL Creatinine (0.66-1.25) mg/dL Estimated GFR ML/MIN Glucose (74-106) mg/dL Lactic Acid (0.4-2.0) Calcium (8.4-10.2) mg/dL Magnesium (1.6-2.3) mg/dL Total Bilirubin (0.2-1.3) mg/dL AST (17-59) U/L ALT (0-50) U/L Alkaline Phosphatase (38-126) U/L Troponin I (0.000-0.033) ng/mL NT-Pro-B Natriuret Pep (<300) pg/mL Serum Total Protein (6.3-8.2) g/dL Albumin (3.5-5.0) g/dL Procalcitonin 1.520 H (0.030-0.080) ng/mL Urine Color Dark Yellow (Yellow) Urine Appearance Turbid A (Clear) Urine pH 5.0 (4.6-8.0) Ur Specific [place] 1.025 (1.005-1.030) Urine Protein 100 A (Negative) Urine Glucose (UA) Negative (Negative) mg/dL Urine Ketones 15 A (Negative) Urine Blood Large A (Negative) Urine Nitrite Negative (Negative) Urine Bilirubin Large A (Negative) Urine Urobilinogen 1.0 A (0.2) mg/dL Ur Leukocyte Esterase Small A (Negative) U Hyaline Cast (Auto) >50 A (0-2) /LPF Urine Microscopic RBC >100 A (0-5) /HPF Urine Microscopic WBC 3-5 (0-5) /HPF Ur Epithelial Cells None Seen (None Seen) /HPF Urine Bacteria None Seen (None Seen) /HPF Urine Culture Reflexed YES (NO) Influenza Type A Ag NEGATIVE (NEGATIVE) Influenza Type B Ag NEGATIVE (NEGATIVE) RSV (PCR) NEGATIVE (NEGATIVE) SARS-CoV-2 (PCR) NEGATIVE (NEGATIVE) 02/09/24 02/09/24 02/09/24 Range/Units 20:11 20:11 20:11 WBC (4.0-10.5) x10^3/uL RBC (4.1-5.6) x10^6/uL Hgb (12.5-18.0) g/dL Hct (42-50) % MCV (78-100) fL MCH (26-32) pg MCHC (32-36) g/dL RDW (11.5-14.0) % Plt Count (150-450) x10^3/uL MPV (7.5-11.0) fL Segmented Neutrophils (36.-66.) % Lymphocytes (Manual) (24-44) % Platelet Estimate (NORMAL) RBC Morphology Anisocytosis Smear Path Review Sodium 144 (135-145) mmol/L Potassium 4.0 (3.5-5.1) mmol/L Chloride 106 (98-107) mmol/L Carbon Dioxide 26 (22-30) mmol/L Anion Gap 15.7 H (5-15) MEQ/L BUN 68 H (9-20) mg/dL Creatinine 3.26 H (0.66-1.25) mg/dL Estimated GFR 19.0 ML/MIN Glucose 127 H (74-106) mg/dL Lactic Acid (0.4-2.0) Calcium 9.8 (8.4-10.2) mg/dL Magnesium 2.4 H (1.6-2.3) mg/dL Total Bilirubin 0.60 (0.2-1.3) mg/dL AST 31 (17-59) U/L ALT 17 (0-50) U/L Alkaline Phosphatase 200 H (38-126) U/L Troponin I 0.055 H* (0.000-0.033) ng/mL NT-Pro-B Natriuret Pep 987 (<300) pg/mL Serum Total Protein 7.9 (6.3-8.2) g/dL Albumin 4.0 (3.5-5.0) g/dL Procalcitonin (0.030-0.080) ng/mL Urine Color (Yellow) Urine Appearance (Clear) Urine pH (4.6-8.0) Ur Specific [place] (1.005-1.030) Urine Protein (Negative) Urine Glucose (UA) (Negative) mg/dL Urine Ketones (Negative) Urine Blood (Negative) Urine Nitrite (Negative) Urine Bilirubin (Negative) Urine Urobilinogen (0.2) mg/dL Ur Leukocyte Esterase (Negative) U Hyaline Cast (Auto) (0-2) /LPF Urine Microscopic RBC (0-5) /HPF Urine Microscopic WBC (0-5) /HPF Ur Epithelial Cells (None Seen) /HPF Urine Bacteria (None Seen) /HPF Urine Culture Reflexed (NO) Influenza Type A Ag (NEGATIVE) Influenza Type B Ag (NEGATIVE) RSV (PCR) (NEGATIVE) SARS-CoV-2 (PCR) (NEGATIVE) 02/09/24 02/09/24 Range/Units 20:11 19:59 WBC 33.1 H* (4.0-10.5) x10^3/uL RBC 3.24 L (4.1-5.6) x10^6/uL Hgb 9.6 L (12.5-18.0) g/dL Hct 31.2 L (42-50) % MCV 96.3 (78-100) fL MCH 29.6 (26-32) pg MCHC 30.8 L (32-36) g/dL RDW 13.9 (11.5-14.0) % Plt Count 249 (150-450) x10^3/uL MPV 11.3 H (7.5-11.0) fL Segmented Neutrophils 96 H (36.-66.) % Lymphocytes (Manual) 4 L (24-44) % Platelet Estimate NORMAL (NORMAL) RBC Morphology ABNORMAL Anisocytosis 1+ Smear Path Review Pending Sodium (135-145) mmol/L Potassium (3.5-5.1) mmol/L Chloride (98-107) mmol/L Carbon Dioxide (22-30) mmol/L Anion Gap (5-15) MEQ/L BUN (9-20) mg/dL Creatinine (0.66-1.25) mg/dL Estimated GFR ML/MIN Glucose (74-106) mg/dL Lactic Acid 2.3 H (0.4-2.0) Calcium (8.4-10.2) mg/dL Magnesium (1.6-2.3) mg/dL Total Bilirubin (0.2-1.3) mg/dL AST (17-59) U/L ALT (0-50) U/L Alkaline Phosphatase (38-126) U/L Troponin I (0.000-0.033) ng/mL NT-Pro-B Natriuret Pep (<300) pg/mL Serum Total Protein (6.3-8.2) g/dL Albumin (3.5-5.0) g/dL Procalcitonin (0.030-0.080) ng/mL Urine Color (Yellow) Urine Appearance (Clear) Urine pH (4.6-8.0) Ur Specific [place] (1.005-1.030) Urine Protein (Negative) Urine Glucose (UA) (Negative) mg/dL Urine Ketones (Negative) Urine Blood (Negative) Urine Nitrite (Negative) Urine Bilirubin (Negative) Urine Urobilinogen (0.2) mg/dL Ur Leukocyte Esterase (Negative) U Hyaline Cast (Auto) (0-2) /LPF Urine Microscopic RBC (0-5) /HPF Urine Microscopic WBC (0-5) /HPF Ur Epithelial Cells (None Seen) /HPF Urine Bacteria (None Seen) /HPF Urine Culture Reflexed (NO) Influenza Type A Ag (NEGATIVE) Influenza Type B Ag (NEGATIVE) RSV (PCR) (NEGATIVE) SARS-CoV-2 (PCR) (NEGATIVE) - Progress Progress: improved, re-examined Air Movement: fair Progress Note: 02/09/24 22:31 73-year-old care home resident with right hemiplegia is evaluated for w orsening cough and difficulty breathing. Patient was hypoxic on EMS arrival, he is given DuoNeb and Solu-Medrol in route, he is on 2 L initially but later on he started desatted and is on 6 L facemask with sats in mid 90s. Patient is given another DuoNeb and here along with fluid bolus per sepsis protocol as patient was hypotensive in 70s. Workup showed white count of 33, lactate of 2.3 with acute renal failure with a baseline creatinine around 1 and today is 3.2 with a BUN of 68. EKG is sinus rhythm with no ST elevation but initial troponin of 2.50.055 which seems more of demand ischemia related to hypotension/renal and less likely cardiac. Patient chest x-ray showed bilateral airspace disease reviewed by me, official report is pending. I have started him on Zosyn and Zithromax. Patient has negative flu COVID and RSV. Despite having fluid bolus patient blood pressure is still in 70s and low 80s with a MAP less than 65, I have started him on Levophed. I believe patient has septic shock, discussed with Dr. Woods, reviewed history, workup, agreed with admission. Dr. Woods req uested central line placement which will be done. 02/09/24 22:37 Blood Culture(s) Obtained: Yes Antibiotics given: Yes Discussed with : Manish ([id number]) Will see patient in: hospital (full admit) Counseled pt/family regarding: lab results, diagnosis, rad results Medical Desision Making - Independent Historian Additional History obtained from: Longterm nurse, Director Of Trauma/EMT - External Record(s) Reviewed Records reviewed as a part of evaluation & management: alf, EMS - Discussion of managment Care discussed with:: hospitalist (Dr. Woods) Reviewed:: Test results Agreed on:: Treatment plan Will see patient: in hospital - Diagnostic Testing Diagnostic test were ordered, analyzed, and reviewed by me: Yes Radiological Interpretation: Interpreted by me, Reviewed by me, Teleradiologist Report - Risk of complications The pt has a high risk of morbidity or mortality based on: Decision regarding hospitilization or escalation of hosp level of care - Departure Departure Disposition: In-patient Admission Clinical Impression: Septic shock, Acute renal failure, Elevated troponin, Dehydration Bilateral pneumonia Qualifiers: Pneumonia type: aspiration pneumonia Condition: Critical Critical Care Time: Yes Critical Care Time(excluding separately billable procedures): Critical 30-74 mins
[2024-02-09 20:38] LABS: ANION GAP 15.7 MEQ/L (5-15); BILIRUBIN,TOTAL 0.6 mg/dL (0.2-1.3); Calcium 9.8 mg/dL (8.4-10.2); Creatinine 1 3.26 mg/dL (0.66-1.25); MAGNESIUM 2.4 mg/dL (1.6-2.3); Total Protein 7.9 g/dL (6.3-8.2)
[2024-02-09] MEDS ORDERED: Sodium Chloride 0.9% 1000 ML 1,000 ML ONE (20:38)
[2024-02-09] MEDS: Sodium Chloride 0.9% 1000 ML 1,000 ML IV STA (20:39)
[2024-02-09 20:59] LABS: INFLUENZA A NEGATIVE (NEGATIVE); INFLUENZA B NEGATIVE (NEGATIVE); RESPIRATORY SYNCTIAL VIRUS NEGATIVE (NEGATIVE); SARS-CoV-2 Xpert Express NEGATIVE (NEGATIVE)
[2024-02-09] MEDS ORDERED: Sodium Chloride 100ML MINI-BAG PLUS 0 ML IV ONE (21:05)
[2024-02-09] MEDS ORDERED: Zithromax 500 MG/ 250 ML NaCl Premix 500 MG/250 ML IVPB IV ONE (21:07)
[2024-02-09] MEDS: Zithromax 500 MG/ 250 ML NaCl Premix 500 MG/250 ML IVPB IV STA (21:09)
[2024-02-09] MEDS: Piperacillin/Tazobactam 2.25 GM 2.25 GM in Sodium Chloride 100ML MINI-BAG PLUS 100 ML IV ONE (21:12)
[2024-02-09 21:27] LABS: ADD URINE CULTURE? YES (NO); Appearance Turbid (Clear); Bacteria None Seen /HPF (None Seen); Bilirubin Large (Negative); Blood Large (Negative); Epithelial Cells None Seen /HPF (None Seen); Glucose, Urine Negative (Negative); Hyaline Casts >50 /LPF (0-2); Ketones 15 (Negative); Leukocyte Esterase Small (Negative); Nitrite Negative (Negative); Protein,Urine Dip 100 (Negative); RBC >100 /HPF (0-5); Specific Gravity 1.025 (1.005-1.030)
[2024-02-09] MEDS ORDERED: NOREPINEPHRINE 8 MG/250 ML-D5W 8 MG/250 ML PLAST..BAG IV ONE (22:28)
[2024-02-09 22:32] LABS: Lymphocytes 4 % (24-44); Neutrophils 96 % (36.-66.); Total Cells Counted 100
[2024-02-09 22:33] LABS: ANISOCYTOSIS 1+; Platelet Estimate NORMAL (NORMAL)
[2024-02-09] MEDS: NOREPINEPHRINE 8 MG/250 ML-D5W 8 MG/250 ML PLAST..BAG IV PRN (23:15)
[2024-02-10] MEDS ORDERED: MENTHOL TP PRN (02:24)
[2024-02-10] MEDS ORDERED: TYLENOL 325 MG PO PRN (02:24)
[2024-02-10] MEDS ORDERED: ZINC OXIDE TP PRN (02:24)
--- NOTE | 2024-02-10 02:34 | PCM.HP ---
History of Present Illness - Chief Complaint Chief Complaint: septic shock, renal failure, bilateral pneumonia Date: 02/10/24 History of Present Illness: Mr. Lozano is a 73 year-old gentleman with dementia, CVA c/b right hemiplegia, chronic anemia, HTN, and HLD, who presents with acute hypoxemic respiratory failure and shock. He presented with a several day history of cough, congestion, and subjective fevers, and upon arrival to [place], he was noted to be hypoxic and hypotensive. Laboratory data revealed a UTI, baseline anemia, an elevated Cr, elevated cardiac enzymes, and an elevated lactate. Chest imaging revealed diffuse airspace disease. On my examination, he is sleeping while on levophed. He is arousable but is not fully oriented when he is awake. - Review of Systems Constitutional: Other (UNABLE TO OBTAIN BASED ON MENTAL STATUS) Medications & Allergies Home Medications: Home Medication List Lisinopril 20 mg [Zestril 20 MG] 20 mg PO DAILY 04/02/15 [History Co nfirmed 02/09/24] Atorvastatin Calcium 20 mg PO HS 11/30/23 [History Confirmed 02/09/24] Balsam Ileana/Becket Oil [Venelex Ointment] 30 gm TP UD PRN 11/30/23 [History Confirmed 02/09/24] Betamethasone Dipropionate [Diprosone CREAM 0.05% ] 15 gm TP Q12H PRN 11/30/23 [History Confirmed 02/09/24] Donepezil HCl 10 mg [Aricept 10 MG] 10 mg PO HS 11/30/23 [History Confirmed 02/09/24] Escitalopram Oxalate [Lexapro] 20 mg PO DAILY 11/30/23 [History Confirmed 02/10/24] Melatonin 5 mg PO HS 11/30/23 [History Confirmed 02/09/24] Menthol/Zinc Oxide [Calmoseptine Ointment Packet] 3.5 gm TP QID PRN 11/30/23 [History Confirmed 02/09/24] Multivitamin [Multiple Vitamins] 1 each PO DAILY 11/30/23 [History Confirmed 02/09/24] Selenium Sulfide [Selsun Blue] 325 ml TP UD 11/30/23 [History Confirmed 02/09/24] Apixaban [Eliquis] 5 mg PO BID 01/06/24 [History Confirmed 02/09/24] Acetaminophen 325 mg [Tylenol 325 mg] 650 mg PO DAILY 02/09/24 [History Confirmed 02/09/24] Acetaminophen 325 mg [Tylenol 325 mg] 650 mg PO Q6HPRN PRN 02/09/24 [History Confirmed 02/09/24] Cefuroxime Axetil 500 mg [Ceftin 500 mg] 500 mg PO BID 02/09/24 [History Confirmed 02/09/24] OLANZapine [Olanzapine] 2.5 mg PO BID 02/10/24 [History Confirmed 02/10/24] Allergies/Adverse Reactions: Allergies Allergy/AdvReac Type Severity Reaction Status Date / Time No Known Drug Allergies Allergy Verified 02/09/24 19:44 - Past Medical History Past Medical History: Yes Neurological History: Dementia, Stroke ENT History: No Pertinent History Cardiac History: High Cholesterol, Hypertension, Other Respiratory History: No Pertinent History Endocrine Medical History: No Pertinent History Musculoskelatal History: No Pertinent History GI Medical History: No Pertinent History History: No Pertinent History Pyscho-Social History: Anxiety, Depression Male Reproductive Disorders: Prostate Problems Comment: right hemiparesis, pt poor historian - Past Surgical History Past Surgical History: No Neuro Surgical History: No Pertinent History Cardiac History: No Pertinent History Respiratory Surgery: No Pertinent History GI Surgical History: No Pertinent History Genitourinary Surgical Hx: No Pertinent History Musculskeletal Surgical Hx: No Pertinent History Male Surgical History: No Pertinent History Other Surgical History: unable to complete surgery history, pt poor historian Significant Family History: no pertinent family hx - Social History Smoking Status: Never smoker Exposure to second hand smoke: No Alcohol: None Drug Use: none - Social Determinants of Health Will the patient participate in the screening: Unable to obtain Do you worry about a steady place to live?: No In the past 12 months,have you had to go without utilities?: No Have you or anyone in your house had to go without enough: No Transportation Issues: No Has anyone in your support network made you feel unsafe?: No Does the patient want assistance with any of the above?: No - Physical Exam Vital Signs: Vital Signs - 24 hr Temp Pulse Resp BP BP Pulse Ox 02/10/24 02:09 87 20 95 02/10/24 02:00 79 17 106/61 95 02/10/24 01:45 81 23 95/54 99 02/10/24 01:30 80 29 H 80/65 02/10/24 01:15 75 32 H 97/63 02/10/24 01:08 76 30 H 83/49 02/10/24 01:07 77 25 H 02/10/24 01:02 78 26 H 02/10/24 00:45 75 25 H 96/47 02/10/24 00:30 72 18 107/51 100 02/10/24 00:15 72 15 84/63 87 L 02/10/24 00:00 77 24 105/56 97 02/09/24 23:54 98.1 F 74 23 105/51 84 L 02/09/24 23:37 98.1 F 74 23 105/51 97 02/09/24 23:20 82 25 H 74/46 99 02/09/24 23:17 93 L 02/09/24 23:10 78 25 H 90/39 99 02/09/24 23:00 78 21 88/51 100 02/09/24 22:50 77 18 77/47 100 02/09/24 22:47 75 17 80/48 98 02/09/24 22:40 77 19 87/46 100 02/09/24 22:30 77 17 83/51 100 02/09/24 22:24 79 17 75/51 100 02/09/24 22:23 80 19 72/41 100 02/09/24 22:20 80 16 68/43 100 02/09/24 22:10 80 18 71/39 100 02/09/24 22:09 82 20 77/39 51 L 02/09/24 22:00 84 19 71/43 93 L 02/09/24 21:50 84 18 71/40 94 L 02/09/24 21:40 84 19 84/43 93 L 02/09/24 21:31 85 17 87/41 99 02/09/24 21:30 89 20 94 L 02/09/24 21:29 49 L 02/09/24 21:00 90 65/48 82 L 02/09/24 20:54 95 H 22 95 02/09/24 20:50 85 20 62/43 80 L 02/09/24 19:42 98.8 F 114 H 22 73/42 93 L General Appearance: other (SLEEPING; NOT ORIENTED WHEN AWOKEN) Neurologic Exam: disoriented, confusion Eye Exam: PERRL/EOMI Ears, Nose, Throat Exam: normal ENT inspection Neck Exam: normal inspection Respiratory Exam: normal breath sounds Cardiovascular Exam: regular rate/rhythm Gastrointestinal/Abdomen Exam: soft, normal bowel sounds Rectal Exam: deferred Extremity Exam: normal inspection Skin Exam: normal color, warm, dry Results - Labs Lab/Micro Results: Lab Results-Last 24 Hours 02/09/24 02/09/24 02/09/24 Range/Units 19:59 20:11 20:11 WBC 33.1 H* (4.0-10.5) x10^3/uL RBC 3.24 L (4.1-5.6) x10^6/uL Hgb 9.6 L (12.5-18.0) g/dL Hct 31.2 L (42-50) % MCV 96.3 (78-100) fL MCH 29.6 (26-32) pg MCHC 30.8 L (32-36) g/dL RDW 13.9 (11.5-14.0) % Plt Count 249 (150-450) x10^3/uL MPV 11.3 H (7.5-11.0) fL Segmented Neutrophils 96 H (36.-66.) % Lymphocytes (Manual) 4 L (24-44) % Platelet Estimate NORMAL (NORMAL) RBC Morphology ABNORMAL Anisocytosis 1+ Smear Path Review Pending Sodium 144 (135-145) mmol/L Potassium 4.0 (3.5-5.1) mmol/L Chloride 106 (98-107) mmol/L Carbon Dioxide 26 (22-30) mmol/L Anion Gap 15.7 H (5-15) MEQ/L BUN 68 H (9-20) mg/dL Creatinine 3.26 H (0.66-1.25) mg/dL Estimated GFR 19.0 ML/MIN Glucose 127 H (74-106) mg/dL Lactic Acid 2.3 H (0.4-2.0) Calcium 9.8 (8.4-10.2) mg/dL Magnesium 2.4 H (1.6-2.3) mg/dL Total Bilirubin 0.60 (0.2-1.3) mg/dL AST 31 (17-59) U/L ALT 17 (0-50) U/L Alkaline Phosphatase 200 H (38-126) U/L Troponin I (0.000-0.033) ng/mL NT-Pro-B Natriuret Pep (<300) pg/mL Serum Total Protein 7.9 (6.3-8.2) g/dL Albumin 4.0 (3.5-5.0) g/dL Procalcitonin (0.030-0.080) ng/mL Urine Color (Yellow) Urine Appearance (Clear) Urine pH (4.6-8.0) Ur Specific [place] (1.005-1.030) Urine Protein (Negative) Urine Glucose (UA) (Negative) mg/dL Urine Ketones (Negative) Urine Blood (Negative) Urine Nitrite (Negative) Urine Bilirubin (Negative) Urine Urobilinogen (0.2) mg/dL Ur Leukocyte Esterase (Negative) U Hyaline Cast (Auto) (0-2) /LPF Urine Microscopic RBC (0-5) /HPF Urine Microscopic WBC (0-5) /HPF Ur Epithelial Cells (None Seen) /HPF Urine Bacteria (None Seen) /HPF Urine Culture Reflexed (NO) Influenza Type A Ag (NEGATIVE) Influenza Type B Ag (NEGATIVE) RSV (PCR) (NEGATIVE) SARS-CoV-2 (PCR) (NEGATIVE) 02/09/24 02/09/24 02/09/24 Range/Units 20:11 20:11 20:11 WBC (4.0-10.5) x10^3/uL RBC (4.1-5.6) x10^6/uL Hgb (12.5-18.0) g/dL Hct (42-50) % MCV (78-100) fL MCH (26-32) pg MCHC (32-36) g/dL RDW (11.5-14.0) % Plt Count (150-450) x10^3/uL MPV (7.5-11.0) fL Segmented Neutrophils (36.-66.) % Lymphocytes (Manual) (24-44) % Platelet Estimate (NORMAL) RBC Morphology Anisocytosis Smear Path Review Sodium (135-145) mmol/L Potassium (3.5-5.1) mmol/L Chloride (98-107) mmol/L Carbon Dioxide (22-30) mmol/L Anion Gap (5-15) MEQ/L BUN (9-20) mg/dL Creatinine (0.66-1.25) mg/dL Estimated GFR ML/MIN Glucose (74-106) mg/dL Lactic Acid (0.4-2.0) Calcium (8.4-10.2) mg/dL Magnesium (1.6-2.3) mg/dL Total Bilirubin (0.2-1.3) mg/dL AST (17-59) U/L ALT (0-50) U/L Alkaline Phosphatase (38-126) U/L Troponin I 0.055 H* (0.000-0.033) ng/mL NT-Pro-B Natriuret Pep 987 (<300) pg/mL Serum Total Protein (6.3-8.2) g/dL Albumin (3.5-5.0) g/dL Procalcitonin 1.520 H (0.030-0.080) ng/mL Urine Color (Yellow) Urine Appearance (Clear) Urine pH (4.6-8.0) Ur Specific [place] (1.005-1.030) Urine Protein (Negative) Urine Glucose (UA) (Negative) mg/dL Urine Ketones (Negative) Urine Blood (Negative) Urine Nitrite (Negative) Urine Bilirubin (Negative) Urine Urobilinogen (0.2) mg/dL Ur Leukocyte Esterase (Negative) U Hyaline Cast (Auto) (0-2) /LPF Urine Microscopic RBC (0-5) /HPF Urine Microscopic WBC (0-5) /HPF Ur Epithelial Cells (None Seen) /HPF Urine Bacteria (None Seen) /HPF Urine Culture Reflexed (NO) Influenza Type A Ag (NEGATIVE) Influenza Type B Ag (NEGATIVE) RSV (PCR) (NEGATIVE) SARS-CoV-2 (PCR) (NEGATIVE) 02/09/24 02/09/24 02/10/24 Range/Units 20:18 21:05 00:10 WBC (4.0-10.5) x10^3/uL RBC (4.1-5.6) x10^6/uL Hgb (12.5-18.0) g/dL Hct (42-50) % MCV (78-100) fL MCH (26-32) pg MCHC (32-36) g/dL RDW (11.5-14.0) % Plt Count (150-450) x10^3/uL MPV (7.5-11.0) fL Segmented Neutrophils (36.-66.) % Lymphocytes (Manual) (24-44) % Platelet Estimate (NORMAL) RBC Morphology Anisocytosis Smear Path Review Sodium (135-145) mmol/L Potassium (3.5-5.1) mmol/L Chloride (98-107) mmol/L Carbon Dioxide (22-30) mmol/L Anion Gap (5-15) MEQ/L BUN (9-20) mg/dL Creatinine (0.66-1.25) mg/dL Estimated GFR ML/MIN Glucose (74-106) mg/dL Lactic Acid (0.4-2.0) Calcium (8.4-10.2) mg/dL Magnesium (1.6-2.3) mg/dL Total Bilirubin (0.2-1.3) mg/dL AST (17-59) U/L ALT (0-50) U/L Alkaline Phosphatase (38-126) U/L Troponin I 0.048 H* (0.000-0.033) ng/mL NT-Pro-B Natriuret Pep (<300) pg/mL Serum Total Protein (6.3-8.2) g/dL Albumin (3.5-5.0) g/dL Procalcitonin (0.030-0.080) ng/mL Urine Color Dark Yellow (Yellow) Urine Appearance Turbid A (Clear) Urine pH 5.0 (4.6-8.0) Ur Specific [place] 1.025 (1.005-1.030) Urine Protein 100 A (Negative) Urine Glucose (UA) Negative (Negative) mg/dL Urine Ketones 15 A (Negative) Urine Blood Large A (Negative) Urine Nitrite Negative (Negative) Urine Bilirubin Large A (Negative) Urine Urobilinogen 1.0 A (0.2) mg/dL Ur Leukocyte Esterase Small A (Negative) U Hyaline Cast (Auto) >50 A (0-2) /LPF Urine Microscopic RBC >100 A (0-5) /HPF Urine Microscopic WBC 3-5 (0-5) /HPF Ur Epithelial Cells None Seen (None Seen) /HPF Urine Bacteria None Seen (None Seen) /HPF Urine Culture Reflexed YES (NO) Influenza Type A Ag NEGATIVE (NEGATIVE) Influenza Type B Ag NEGATIVE (NEGATIVE) RSV (PCR) NEGATIVE (NEGATIVE) SARS-CoV-2 (PCR) NEGATIVE (NEGATIVE) - Radiology Impressions Radiology Exams & Impressions: Radiology Procedures Category Date Time Status CHEST 1 VIEW (PORTABLE) Stat Exams 02/09/24 19:59 Taken CHEST WITHOUT CONTRAST [CT] Stat Exams 02/09/24 20:54 Taken Assessment/Plan (1) Septic shock Current Visit: Yes Status: Acute Assessment & Plan: LINES R-Femoral 02/08 DRIPS Levophed ANTIBIOTICS AND STEROIDS Vancomycin 02/09 Cefepime 02/09 Hydrocortisone 02/09 ASSESSMENT 1. Altered Mental Status 2. Acute Hypoxemic Respiratory Failure 3. Pneumonia 4. Septic Shock 5. Urinary Tract Infection 6. Non-ST Elevation Myocardial Infarction, Type II 7. Acute Kidney Injury 8. Elevated Lactate 9. Hypertension 10. Hyperlipidemia 11. Dementia 12. Cerebrovascular Accident c/b R-Hemiplegia 13. Chronic Anemia PLAN 1. Wean oxygen to maintain SaO2 > 90% 2. Fluids + Vasopressor to maintain MAP 65 3. Stress dose steroids - can be stopped after 5 days without a wean if shock has resolved within 48 hours 4. Broad Abx + Nebs 5. Cultures + MRSA swab pending; viral respiratory panel pending 6. Echo for AM 7. Continue home medications except for antihypertensive Eliquis Critical Care Time: 60 Minutes The entirety of this encounter was done via telemedicine with audio and visual. Consent was unobtainable for a telemedicine encounter due to mental status. Michael Woods MD Pulmonary and Critical Care Medicine Code(s): A41.9 - SEPSIS, UNSPECIFIED ORGANISM; R65.21 - SEVERE SEPSIS WITH SEPTIC SHOCK Telemedicine Encounter - Telemedicine Encounter Telemedicine Encounter: The entirety of this encounter was performed via Telemedicine"
[2024-02-10] MEDS: DUONEB 0.5-3 MG/3 ml Neb IH SCH (02:58)
[2024-02-10] MEDS: Lactated Ringers 1,000 ML IV SCH (02:59)
[2024-02-10] MEDS: solu-CORTEF 100MG IV SCH (02:59)
[2024-02-10 04:45] LABS: Hematocrit 28.1 % (42-50); Hemoglobin 8.2 g/dL (12.5-18.0); Mean Cell Volume 103.3 fL (78-100); Mean Corpuscular Hemoglobin 30.1 pg (26-32); Mean Corpuscular Hgb Concent. 29.2 g/dL (32-36); Mean Platelet Volume 11.7 fL (7.5-11.0); Platelet Count 195 x10^3/uL (150-450); Red Blood Count 2.72 x10^6/uL (4.1-5.6); Red Cell Distribution Width 13.9 % (11.5-14.0)
[2024-02-10 04:50] LABS: White Blood Count 34.1 x10^3/uL (4.0-10.5)
[2024-02-10 05:14] LABS: ALBUMIN 3.1 g/dL (3.5-5.0); ANION GAP 13.6 MEQ/L (5-15); BILIRUBIN,TOTAL 0.5 mg/dL (0.2-1.3); Calcium 8.6 mg/dL (8.4-10.2); Creatinine 1 2.28 mg/dL (0.66-1.25); EST GLOMERULAR FILTRATION RATE 29.2 ML/MIN; MAGNESIUM 2.2 mg/dL (1.6-2.3); PREALBUMIN 9.24 mg/dL (17.6-36.0); Potassium 3.6 mmol/L (3.5-5.1); Total Protein 6.3 g/dL (6.3-8.2)
[2024-02-10 05:42] LABS: Lymphocytes 6 % (24-44); Monocyte 1 % (0.0-12.0); Neutrophils 93 % (36.-66.); Total Cells Counted 100
[2024-02-10 05:43] LABS: Platelet Estimate NORMAL (NORMAL)
[2024-02-10 05:44] LABS: ANISOCYTOSIS 2+; Macrocytosis 1+
[2024-02-10 05:45] LABS: Burr Cells 1+; Polychromasia 1+
[2024-02-10] MEDS: VANCOMYCIN 1 GRAM/200 ML BAG 1 GM/200 ML PIGGYBACK IV SCH (05:59)
[2024-02-10] MEDS ORDERED: PIPERACILLIN/TAZOBACTAM 3.375 GM in Sodium Chloride 100ML MINI-BAG PLUS 100 ML IV SCH (06:00)
[2024-02-10] MEDS ORDERED: DUONEB 0.5-3 MG/3 ml Neb IH ONE (06:54)
--- NOTE | 2024-02-10 08:44 | XRAY ---
Indication: Short of breath. Multiple contiguous axial images obtained through the chest without contrast. Comparison: None Both lower lobes demonstrates patchy groundglass airspace disease. Lesser degrees seen right middle and left upper lobes. No consolidation/effusion. Elsewhere mild bilateral dependent atelectasis and tiny right base calcified granuloma. 7 mm noncalcified nodule peripheral left lower lobe possibly granulomatous. Heart not enlarged with scattered coronary calcifications. Aorta mildly arteriosclerotic without aneurysm. Tiny right hilar calcified nodes. No pathologic mediastinal lymphadenopathy. Bony thorax demonstrates osteopenia, moderate degenerative changes throughout visualized spine, and mild elongated dextroscoliosis centered at T9. Limited upper abdomen demonstrates additional scattered arteriosclerotic calcifications. Impression: 1. Bilateral groundglass airspace disease greatest in both lower lobes. 2. 7 mm left lower lobe noncalcified nodule. Finding possibly granulomatous as there is evidence for old granulomatous disease elsewhere. 3. Chronic findings including diffuse arteriosclerotic disease and chronic bony findings.
--- NOTE | 2024-02-10 08:46 | XRAY ---
Indication: Short of breath. Comparison: January 06, 2024 Portable chest again hyperinflated with new subtle bibasilar hazy airspace disease, left greater than right. No consolidation/large effusion. Heart not enlarged. Bony thorax intact again with osteopenia, degenerative changes, and old left clavicle fracture.
[2024-02-10] MEDS ORDERED: OLANZAPINE 2.5 MG PO SCH (10:00)
[2024-02-10] MEDS ORDERED: zyPREXA 5MG TABLET PO SCH (10:00)
[2024-02-10] MEDS ORDERED: LEVOFLOXACIN 750MG/150ML D5W 750 MG/150 ML BAG IV SCH (10:00)
[2024-02-10] MEDS ORDERED: NON-FORMULARY ITEM (Apixaban [Eliquis] 5 MG Tablet) PO SCH (10:00)
[2024-02-10] MEDS ORDERED: NON-FORMULARY ITEM (Multivitamin [Multiple Vitamins] 1 EACH Tablet) PO SCH (10:00)
[2024-02-10] MEDS: MAXIPIME 1 GM** 1 G in Dextrose 5%/Water IV Soln. 100ML PLUS BAG 100 ML IV SCH (10:33)
--- NOTE | 2024-02-10 11:54 | XRAY ---
Indication: Aspiration. Modified barium swallow study performed bedside by the Department of speech therapy with fluoroscopic assistance provided. Patient ingested multiple consistencies of liquids. Full report and recommendations will be reported separately. Approximately 1 minute 13 seconds fluoroscopy used.
[2024-02-10] MEDS ORDERED: FEVERALL 650 MG PR PRN (13:54)
[2024-02-10] MEDS: THERAGRAN MULTIVITAMIN PO SCH (14:05)
[2024-02-10] MEDS: ELIQUIS 2.5 MG TABLET PO SCH (14:19)
[2024-02-10] MEDS: PHARMACY RENAL DOSING MC ONE (14:21)
[2024-02-10] MEDS: ENOXAPARIN SODIUM SQ SCH (14:34)
[2024-02-10] MEDS: PERIKABIVEN PERIPH TPN 1,920 ML with Vitamins For Infusion 10 ML INJECTION*** 10 ML, TR... IV SCH (15:07)
[2024-02-10] MEDS ORDERED: HUMALOG SQ PRN (16:28)
[2024-02-10] MEDS ORDERED: NON-FORMULARY ITEM (Melatonin [Melatonin] 5 MG Tablet) PO SCH (22:00)
[2024-02-10] MEDS ORDERED: MELATONIN PO SCH (22:00)
[2024-02-10] MEDS ORDERED: NON-FORMULARY ITEM (Atorvastatin Calcium [Atorvastatin Calcium] 20 MG Tablet) PO SCH (22:00)
[2024-02-10] MEDS ORDERED: Aricept 10 MG PO SCH (22:00)
[2024-02-11 05:45] LABS: Hematocrit 26.3 % (42-50); Mean Cell Volume 98.5 fL (78-100); Mean Corpuscular Hgb Concent. 30.4 g/dL (32-36); Mean Platelet Volume 11.7 fL (7.5-11.0); Platelet Count 211 x10^3/uL (150-450); Red Blood Count 2.67 x10^6/uL (4.1-5.6); Red Cell Distribution Width 13.9 % (11.5-14.0)
[2024-02-11 05:50] LABS: White Blood Count 28.8 x10^3/uL (4.0-10.5)
[2024-02-11 05:57] LABS: ANION GAP 8.4 MEQ/L (5-15); BILIRUBIN,TOTAL 0.3 mg/dL (0.2-1.3); Creatinine 1 0.8 mg/dL (0.66-1.25); EST GLOMERULAR FILTRATION RATE 92.3 ML/MIN; MAGNESIUM 2.3 mg/dL (1.6-2.3); Potassium 4.2 mmol/L (3.5-5.1); Total Protein 6.2 g/dL (6.3-8.2)
[2024-02-11] MEDS: VANCOCIN 500 MG VIAL*** 500 MG in Sodium Chloride 100ML MINI-BAG PLUS 100 ML IV SCH (06:09)
--- NOTE | 2024-02-11 10:43 | PCM.NOTE ---
Date and Time: 02/11/24 1037 Subjective Assessment: 02/11/24 Mr. Lozano is a 73 year-old gentleman with dementia, CVA c/b right hemiplegia, chronic anemia, HTN, and HLD. He lives at a halfway in [place]. He presented to ER on 02/09/24, and admitted 02/10/24 with acute hypoxemic respiratory failure and shock. He presented with a several day history of cough, congestion, and subjective fevers, and upon arrival to [place]. He was noted to be hypoxic and hypotensive. Laboratory data revealed a UTI, baseline anemia, an elevated Cr, elevated cardiac enzymes, and an elevated lactate. Chest imaging revealed diffuse airspace disease. CT shows BLLL pneumonia. He was placed on Levophed for hypotension and continues to require on 1 mcg. He is having int ermittent bradycardia. Pt positive for septic shock on admission. He is underweight. He was to have a barium swallow eval OP this week, it was done yesterday by ST. She advised not to have pt eat or drink as he was unable to clear pudding thick and nectar thick liquids as he was not muscles were not strong enough to swallow. NG placed for tube feedings to be started and pt pulled it out. PPN started IV for nutrition. Advance directives on chart indicate he does not want a peg tube placed. ST to come in this weekend to re- eval if pt can eat. Pt's meds on hold until able to do so. He is alert and awake today. SAVANNAH has resolved. WBC 28.8 trending down. Sputum culture gram negative, sensitivity pending. Will continue antibiotics and steroids for pneumonia. Lung sounds have improved. Pt denies CP, Abd. pain, N/V/D. He states he wants to get back to the [facility] to be with his brother. - Review of Systems Constitutional: Weakness, No Fever, No Chills Eyes: No Symptoms Ears, Nose, & Throat: No Symptoms Respiratory: Short Of Breath, No Cough Cardiac: No Chest Pain, No Edema, No Syncope Abdominal/Gastrointestinal: No Abdominal Pain, No Nausea, No Vomiting, No Diarrhea Genitourinary Symptoms: No Dysuria Musculoskeletal: No Back Pain, No Neck Pain Skin: No Rash Neurological: No Dizziness, No Focal Weakness, No Sensory Changes Psychological: No Symptoms Endocrine: No Symptoms Hematologic/Lymphatic: No Symptoms Immunological/Allergic: No Symptoms Objective Exam General Appearance: no apparent distress, alert Neurologic Exam: alert, oriented x 3, cooperative, normal mood/affect, nml cerebellar function, sensation nml, motor deficits (Chronic left sided weakness from old CVA) Skin Exam: warm, dry, pale Wound Assessment: Skin/Wound Assessment Wound/Incision Assessment Start: 02/10/24 01:32 Text: Status: Active Freq: Q6H Protocol: Document 02/11/24 08:00 [facility] (Rec: 02/11/24 09:52 [facility] [id number]) Wound/Incision Assessment Coccyx Wound Assessment Shift Assessment Wound Type Pressure Ulcer Wound Stage Stage I Dressing Status Dry & Intact Drainage Amount None Drainage Odor None/Absent Primary Dressing Mepilex Comment Mepilex dressing remains C/D/I no shadowing noted changed on previous shift. Right Posterior Lateral Hand Wound Assessment Shift Assessment Wound Type Pressure Ulcer Wound Stage Stage I Dressing Status Dry & Intact Drainage Amount None Drainage Odor None/Absent Primary Dressing Mepilex Border Dressing Comment Mepilex dressing remains C/D/I . -changed on previous shift. Wound Photo Photo Taken No Date: 02/10/24 Time: 00:30 Comment: See chart Eye Exam: PERRL, EOMI, eyes nml inspection Ears, Nose, Throat Exam: normal ENT inspection, pharynx normal, moist mucous membranes Neck Exam: normal inspection, non-tender, supple, full range of motion Respiratory Exam: diminished breath sounds, No respiratory distress Cardiovascular Exam: regular rate/rhythm, normal heart sounds Gastrointestinal/Abdomen Exam: soft, No tenderness, No mass Extremity Exam: normal inspection, normal range of motion Back Exam: normal inspection, normal range of motion, No CVA tenderness, No vertebral tenderness Male Genitalia Exam: deferred Rectal Exam: deferred Objective Data Vital Signs: Vital Signs - 24 hr Temp Pulse Resp BP Pulse Ox 02/11/24 10:35 57 L 20 99 02/11/24 10:15 63 19 103/54 99 02/11/24 10:00 47 L 24 91/57 99 02/11/24 09:46 74 22 94/56 99 02/11/24 09:30 75 18 102/57 98 02/11/24 09:16 62 16 92/52 99 02/11/24 09:00 97.7 F 63 14 131/67 100 05 08:45 51 L 20 122/62 99 05/25/24 08:32 65 16 99/61 96 05 08:15 71 17 129/65 96 02/11/24 08:00 70 17 101/58 99 0524 07:45 63 17 110/72 96 05 07:31 98.4 F 72 22 126/65 99 05 07:15 74 19 125/71 99 05 07:01 79 23 120/69 97 0524 06:46 56 L 17 132/69 0524 06:40 70 20 100 0524 06:30 69 15 103/59 05 06:16 70 20 114/66 05 06:00 52 L 21 136/76 98 0524 05:45 71 17 131/72 05 05:30 66 16 120/61 05 05:15 75 23 137/66 05 05:00 55 L 21 131/70 0524 04:45 47 L 17 131/77 0524 04:32 62 16 130/65 0524 04:15 56 L 18 94/69 0524 04:00 83 13 106/59 0524 03:46 96 H 17 114/74 0524 03:30 67 14 132/69 05/24 03:16 73 18 119/67 100 05 03:00 71 16 128/75 0524 02:46 58 L 14 111/69 05/24 02:30 47 L 10 L 125/66 0524 02:15 68 18 110/58 05/24 02:00 67 18 119/66 99 0524 01:45 76 18 117/83 0524 01:31 57 L 17 104/62 05/24 01:15 66 19 118/65 05/24 01:00 73 18 118/67 98 0525/24 00:46 71 17 121/61 99 0524 00:30 64 17 109/60 97 0524 00:15 68 16 111/65 05/25/24 00:01 97.7 F 73 18 111/71 96 05 23:58 85 05/ 23:45 97.7 F 76 18 124/92 96 02/10/24 23:30 85 21 104/61 99 05 23:16 82 18 118/65 02/10/24 23:00 69 17 102/55 100 02/10/24 22:54 71 19 100 02/10/24 22:46 74 20 113/51 02/10/24 22:30 73 27 H 122/64 02/10/24 22:15 75 18 100/60 05 22:00 73 18 99/70 100 02/10/24 21:45 78 20 94/59 02/10/24 21:30 72 21 96/61 02/10/24 21:17 69 19 92/47 02/10/24 21:00 68 23 90/61 02/10/24 20:46 73 21 111/56 02/10/24 20:31 74 22 89/59 02/10/24 20:16 76 17 127/52 02/10/24 20:01 98.7 F 60 18 114/49 02/10/24 20:00 71 02/10/24 19:45 79 37 H 123/59 02/10/24 19:31 83 26 H 119/66 02/10/24 19:15 76 18 103/57 02/10/24 19:01 75 21 106/41 98 02/10/24 18:55 77 20 98 02/10/24 18:45 76 23 101/59 98 02/10/24 18:30 98.4 F 71 19 116/58 100 02/10/24 18:15 68 14 109/57 92 L 02/10/24 18:00 98.2 F 73 39 H 113/58 02/10/24 17:45 72 22 112/61 02/10/24 17:30 72 18 117/52 02/10/24 17:27 81 12 119/68 02/10/24 17:00 87 16 105/53 100 02/10/24 16:45 78 18 119/60 99 02/10/24 16:30 74 19 99/59 99 02/10/24 16:15 69 17 100/57 99 02/10/24 16:02 68 13 92/49 99 02/10/24 15:45 73 18 97/50 100 02/10/24 15:30 77 17 112/56 99 02/10/24 15:15 78 21 102/56 100 02/10/24 15:00 97.7 F 72 17 89/56 100 02/10/24 14:56 70 18 100 02/10/24 14:45 72 23 107/60 99 02/10/24 14:30 72 23 99/51 99 02/10/24 14:15 64 20 104/53 97 02/10/24 14:00 72 14 112/56 02/10/24 13:45 81 15 91/52 96 02/10/24 13:31 78 15 102/59 02/10/24 13:15 86 19 138/87 02/10/24 13:00 116 H 19 109/58 02/10/24 12:46 79 21 116/69 02/10/24 12:30 75 26 H 102/55 02/10/24 12:15 98.0 F 73 18 92/53 97 02/10/24 12:00 77 14 109/59 02/10/24 11:45 73 15 115/59 02/10/24 11:39 68 14 99 02/10/24 11:31 74 18 119/72 02/10/24 11:15 66 16 112/61 97 02/10/24 11:00 72 19 96/47 98 02/10/24 10:45 71 14 96/52 96 Pain Assessment - Last Documented Pain Intensity 0 Intake and Output: Intake & Output 02/08/24 02/09/24 02/10/24 02/11/24 11:59 11:59 11:59 11:59 Intake Total 620 2316 Balance 620 2316 Weight 60.1 kg 59 kg Lab Results: Lab Results-Last 24 Hours 02/10/24 02/10/24 02/10/24 Range/Units 12:00 16:13 18:04 WBC (4.0-10.5) x10^3/uL RBC (4.1-5.6) x10^6/uL Hgb (12.5-18.0) g/dL Hct (42-50) % MCV (78-100) fL MCH (26-32) pg MCHC (32-36) g/dL RDW (11.5-14.0) % Plt Count (150-450) x10^3/uL MPV (7.5-11.0) fL Sodium (135-145) mmol/L Potassium (3.5-5.1) mmol/L Chloride (98-107) mmol/L Carbon Dioxide (22-30) mmol/L Anion Gap (5-15) MEQ/L BUN (9-20) mg/dL Creatinine (0.66-1.25) mg/dL Estimated GFR ML/MIN Glucose (74-106) mg/dL POC Glucometer 146 H 152 H 164 H (74 to 106) mg/dL Calcium (8.4-10.2) mg/dL Magnesium (1.6-2.3) mg/dL Total Bilirubin (0.2-1.3) mg/dL AST (17-59) U/L ALT (0-50) U/L Alkaline Phosphatase (38-126) U/L Serum Total Protein (6.3-8.2) g/dL Albumin (3.5-5.0) g/dL 02/10/24 02/11/24 02/11/24 Range/Units 22:58 05:34 05:34 WBC 28.8 H* (4.0-10.5) x10^3/uL RBC 2.67 L (4.1-5.6) x10^6/uL Hgb 8.0 L (12.5-18.0) g/dL Hct 26.3 L (42-50) % MCV 98.5 (78-100) fL MCH 30.0 (26-32) pg MCHC 30.4 L (32-36) g/dL RDW 13.9 (11.5-14.0) % Plt Count 211 (150-450) x10^3/uL MPV 11.7 H (7.5-11.0) fL Sodium 145 (135-145) mmol/L Potassium 4.2 (3.5-5.1) mmol/L Chloride 113 H (98-107) mmol/L Carbon Dioxide 28 (22-30) mmol/L Anion Gap 8.4 (5-15) MEQ/L BUN 39 H (9-20) mg/dL Creatinine 0.80 (0.66-1.25) mg/dL Estimated GFR 92.3 ML/MIN Glucose 173 H (74-106) mg/dL POC Glucometer 196 H (74 to 106) mg/dL Calcium 9.0 (8.4-10.2) mg/dL Magnesium 2.3 (1.6-2.3) mg/dL Total Bilirubin 0.30 (0.2-1.3) mg/dL AST 27 (17-59) U/L ALT 17 (0-50) U/L Alkaline Phosphatase 139 H (38-126) U/L Serum Total Protein 6.2 L (6.3-8.2) g/dL Albumin 3.0 L (3.5-5.0) g/dL 02/11/24 Range/Units 05:49 WBC (4.0-10.5) x10^3/uL RBC (4.1-5.6) x10^6/uL Hgb (12.5-18.0) g/dL Hct (42-50) % MCV (78-100) fL MCH (26-32) pg MCHC (32-36) g/dL RDW (11.5-14.0) % Plt Count (150-450) x10^3/uL MPV (7.5-11.0) fL Sodium (135-145) mmol/L Potassium (3.5-5.1) mmol/L Chloride (98-107) mmol/L Carbon Dioxide (22-30) mmol/L Anion Gap (5-15) MEQ/L BUN (9-20) mg/dL Creatinine (0.66-1.25) mg/dL Estimated GFR ML/MIN Glucose (74-106) mg/dL POC Glucometer 146 H (74 to 106) mg/dL Calcium (8.4-10.2) mg/dL Magnesium (1.6-2.3) mg/dL Total Bilirubin (0.2-1.3) mg/dL AST (17-59) U/L ALT (0-50) U/L Alkaline Phosphatase (38-126) U/L Serum Total Protein (6.3-8.2) g/dL Albumin (3.5-5.0) g/dL Radiology Exams: Radiology Procedures Category Date Time Status CHEST 1 VIEW (PORTABLE) Stat Exams 02/09/24 19:59 Completed CHEST WITHOUT CONTRAST [CT] Stat Exams 02/09/24 20:54 Completed ECHO W/2D AND DOPPLER [US] Routine Exams 02/10/24 02:41 Taken MODIFIED BARIUM SWALLOW EXAM Routine Exams 02/10/24 09:26 Completed Multi-Disciplinary Progress Notes: Multi-Disciplinary Progress Notes 02/10/24 18:23 Mod Barium Swallow Note by Margot#[id number],Zabrina Modified Barium Swallow Study ST Modified Barium Swallow Study Start: 02/10/24 15 :34 Freq: Status: Active Protocol: Document 02/10/24 17:07 BM (Rec: 02/10/24 17:20 [id number]) E-Sign 02/10/24 17:07 BM Modified Barium Swallow Reason for Assessment Primary Diagnosis E86.0 - DEHYDRATION Primary Diagnosis (cont) J18.9 - PNEUMONIA, UNSPECIFIED ORGANISM Treatment Diagnosis #1 R13.12 - DYSPHAGIA, OROPHARYNGEAL PHASE Reason for Assessment PMH PER LTC FACILITY: FOOT DROP UNSPECIFIED, DIPLOPIA, ESSENTIAL HYPERTENSION, MUSCLE WEAKNESS, BENIGN PROSTATIC HYPERPLASIA WITHOUT LOWER URINARY TRACT SYMPTOMS, DEMENTIA, DISORDER OF NOSE/ NASAL SINUSES, CONTRACTURE R HAND, 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 PATIENT REFERRED FOR MBS STUDY UPON ADMISSION WITH DIAGNOSIS OF BILATERAL PNEUMONIA, POSSIBLE ASPIRATION, AND DEHYDRATION. PATIENT SCHEDULED FOR OUTPATIENT MBS STUDY ON PRIOR TO THIS [facility] ADMISSION. Onset Date 02/07/24 Date of Evaluation/SOC 02/10/24 Pain Assessment Non-verbal signs & symptoms of pain No Modified Barium Swallow View This evaluation was completed to assess the functioning of the oral and pharyngeal phases of swallowing and to determine if the patient is aspirating or at risk for aspiration. Modified Barium Swallow View Lateral View Consistencies Assessed Barium trials included: [place] Liquid via Spoon,Thin Honey Liquid via spoon,Honey Liquid via Spoon,Pudding Liquid via spoon Aspiration Risk Aspiration Observed Yes Amount of Aspiration Observed TRACE Patient considered at risk of aspiration Yes during oral intake Patient is at risk for aspiration After the swallow,During the swallow Severity of Aspiration Risk Moderate to Severe Penetration into Laryngeal Vestibule Yes Penetration occured with Thick Honey Consistency Reason for aspirational risk: PATIENT AT RISK FOR ASPIRATION DURING THE SWALLOW DUE TO DECREASED LARYNGEAL VESTIBULE CLOSURE. PATIENT AT RISK FOR ASPIRATION AFTER THE SWALLOW DUE TO RESIDUE REMAINING IN VALLECULAE, LARYNGEAL AND PHARYNGEAL RECESSES AFTER SWALLOW COMPLETED. 8-Point Penetration-Aspiration Scale (Rosenbek) 8.Material enters the airway,passes Yes below the vocal folds and NO effort is made to eject. Consistency [place] Thick,Thin Honey,Honey Method of presentation Teaspoon Comment: ASPIRATION OCCURRED FROM RESIDUE REMAINING AFTER SWALLOW COMPLETION AND APPEARED VISIBLE WITH ADDITIONAL SWALLOWS. Residue/Retention Residue Observed Valleculae Right,Valleculae Left,Pyriform Sinus Right, Pyriform Sinus Left,Tongue Base,Pharyngeal Wall Esophageal Function No Impairment (WFL) Other UNABLE TO FULLY ASSESS ESOPHAGEAL FUNCTION DURING THIS MBS STUDY DUE TO MOVEMENT LIMITATIONS OF EQUIPMENT UTILIZED. Assessment of Swallow Phases Oral Phase Labial Closure Mild Impairment Bolus Control Pooling L/R No Impairment (WFL) Bolus Control under Tongue No Impairment (WFL) Bolus Control Scattered Loss No Impairment (WFL) A/P Bolus Propulsion Moderate Impairment Premature Spillage into: Valleculae A/P Lingual Propulsion Delay Moderate Impairment A/P Lingual Propulsion Delay (sec) 8 Lingual Movement Moderate Impairment Residue Clearing/Sensitivity Severe Impairment Aspiration Yes Swallow Initiation Delay Moderate Impairment Swallow Delay Time (sec) 1 Other Oral Phase Observations PATIENT UNABLE TO MANIPULATE THIN LIQUID BARIUM WITH BILABIAL CLOSURE FROM SPOON, RESULTING IN LIQUID FALLING OUT OF MOUTH IMMEDIATELY UPON PLACEMENT INTO ORAL CAVITY. WHEN PRESENTED WITH HONEY THICK LIQUID VIA TEASPOON, PATIENT REQUIRED TONGUE PUMPING TO ASSIST WITH A/P BOLUS PROPULSION, WITH A DELAY OF GREATER THAN 8 SECONDS. SWALLOW ATTEMPTS WITH THIN HONEY AND NECTAR THICK LIQUID BARIUM PRESENTED VIA SPOON RESULTED IN SWALLOW INITIATION WITH MINIMAL DELAY OF A/P BOLUS PROPULSION AND MINIMAL DELAY OF SWALLOW INITIATION. Pharyngeal Phase Base of Tongue Retraction Moderate Impairment Epiglottic Coverage No Impairment (WFL) Laryngeal Elevation Minimal Impairment Reduced Anterior Laryngeal Movement No Laryngeal Closure Minimal Impariment Vallecular Retention Clearing Severe Impairment Pharyn. Wall Residue Clearing Mild Impairment Pyriform Sinus Retention Moderate Impairment Penetration Yes Aspiration Yes Cricopharyngeal Dysfunction No Cough None Other Pharyngeal Phase Observation PATIENT WITH LARGE VOLUME OF RESIDUE REMAINING IN VALLECULAE, LARYNGEAL AND PHARYNGEAL RECESSES, POSTERIOR PHARYNGEAL WALL AFTER SWALLOW COMPLETION. WITH PUDDING BOLUS, PATIENT WITH SWALLOW COMPLETION OF PARTIAL BOLUS, FOLLOWED BY SECONDARY PARTIAL BOLUS FALLING TO OPENING OF LARYNGEAL VESTIBULE PRIOR TO PATIENT INDEPENDENTLY COMPLETING ADDITIONAL SWALLOW. WITH INITIATION OF ADDITIONAL SWALLOW, BOLUS WAS PULLED TO OPENING OF CRICOPHARYNGEOUS AND INTO ESOPHAGUS. SILENT TRACE ASPIRATION OCCURRED AFTER HONEY THICK, THIN HONEY, AND NECTAR THICK BARIUM PRESENTATIONS FROM LARGE VOLUME OF RESIDUE REMAINING IN VALLECULAE, LARYNGEAL AND PHARYNGEAL RECESSES, AND POSTERIOR PHARYNGEAL WALL. Clinical Interpretation Clinical Interpretation PATIENT WITH SEVERE OROPHARYNGEAL DYSPHAGIA WITH ASPIRATION. Speech Therapy Teaching Record Teaching Summary Results/Recommendations Learning Preferences Demonstration,Discussion Readiness for Learning No Interest Teaching Methods Discussion,Audiovisual Teaching Recipient Patient Response to Teaching Reinforcement needed ST Recommendations Diet Consistency NPO with alternative feeding method Comment AFTER CONSULTING WITH THERAPEUTIC RECREATION LEADER AND RT, IT IS DETERMINED THAT PATIENT WOULD BENEFIT FROM NPO WITH ALTERNATIVE FEEDING METHOD DUE TO SEVERITY OF HIS CURRENT MEDICAL STATUS. Follow-Up MBS Evaluation prior to initiation of Yes oral intake Rehabilitation Potential: POOR Additional Comments: ST TO CONTINUE FOR SWALLOW TX, DIET TEXTURE ANALYSIS WITH MODIFICATION PATIENT TOLERATES. Signatures Speech Therapist Signature AGUILA, MS, CCC/ELECTRIC ACCOUNTING MACHINE OPERATOR Physician Signature DR Yashira ARIAS, RADIOLOGIST Initialized on 02/10/24 18:23 - END OF NOTE 02/10/24 14:37 Pharmacy Note by [facility] TPN Consult Date: 02-10-24 TPN Day #: 1 Patient Name: Devendra Stevens HT: 72 in ACTUAL WT: 60kg Age: 73 DIAGNOSIS: sepsis Patient Current Labs: Sodium 145 Potassium 3.6 Chloride 112 Glucose 130 Magnesium 2.2 Calcium 8.6 SCr 2.28 CrCl 23 a. Hospital Formulation: (triple mix) PERIKABIVEN PERIPHERAL LINE 1920 ML b. Total KCals = 1300 KCAL per bag c. Total Volume = 1920 ml d. Carbohydrates = 130 gm; Protein = 45 gm; Fat = 68 gm e. Electrolytes/ premixed bag Sodium 42 meq Potassium 33 meq Calcium 5 meq Magnesium 11 meq Chloride 61 meq Acetate 52 meq Sulfate 11 meq Phosphorous 14 mMole 1. PERIPHERAL LINE - TPN RATE: Total Volume to be delivered /24 hr: 1920 Total Calories to be delivered/24 hr:1300 2. Additions to TPN Bag for today (Date 02/10/24) A. MVI 10 ml B. Trace Metals 1 mg C. K-Phos 44meq D. E. ii. Total Electrolytes per 24 hours: Sodium 42 meq Potassium 77 meq Calcium 5 meq Magnesium 11 meq Chloride 61 meq Acetate 52 meq Sulfate 11 meq Phosphorous 44 mMole Will add 44mEq of Potassium Phosphate to increase Potassium, without increasing chloride. PPN to infuse at 80ml/hr Initialized on 02/10/24 14:37 - END OF NOTE 02/10/24 14:30 Physical Therapy Note by Piter (L#[id number])Trice PHYSICAL THERAPY EVAL AND TREAT ORDER RECEIVED. WHEN THIS THERAPIST ARRIVED TO PATIENT'S ROOM HIS NURSE STATED HE WAS ON IV MEDICATION AND LETHARGIC AND WOULD NOT TOLERATE PHYSICAL THERAPY AT THIS TIME. PHYSICAL THERAPY EVAL IS ON HOLD AT THIS TIME. Initialized on 02/10/24 14:30 - END OF NOTE Assessment/Plan (1) Septic shock Current Visit: Yes Status: Acute Assessment & Plan: - Lactic acid on admission 2.3- IV fluids gave in ER, no fluid boluses seen. - LA 02/09 0.8 - 2:2 Pneumonia - WBC > 12,000 - resp > 20 - hypotension on levophed gtt - SAVANNAH - elevated trop - ICU- tele - BC x2, UC and sputum culture- pending Code(s): A41.9 - SEPSIS, UNSPECIFIED ORGANISM; R65.21 - SEVERE SEPSIS WITH SEPTIC SHOCK (2) Bilateral pneumonia Current Visit: Yes Status: Acute Qualifiers: Pneumonia type: aspiration pneumonia Assessment & Plan: - likely 2:2 aspiration - WBC improving 28.8 - Flu/COVID/RSV - maxipime and vancomycin - Steriods, duonebs - Sputum culture gram negative- sensitivity pending - BC x2- pending - Chest CT 02/08 Impression: 1. Bilateral groundglass airspace disease greatest in both lower lobes. 2. 7 mm left lower lobe noncalcified nodule. Finding possibly granulomatous as there is evidence for old granulomatous disease elsewhere. 3. Chronic findings including diffuse arteriosclerotic disease and chronic bony findings - Chest XR 02/08 Portable chest again hyperinflated with new subtle bibasilar hazy airspace disease, left greater than right. No consolidation/large effusion. Heart not enlarged. Bony thorax intact again with osteopenia, degenerative changes, and old left clavicle fracture. - On 2LNC- 98%, baseline Room air Code(s): J18.9 - PNEUMONIA, UNSPECIFIED ORGANISM (3) Hypotension Current Visit: No Status: Acute Assessment & Plan: - remains on levophed tt at 1 mcg- wean off Code(s): I95.9 - HYPOTENSION, UNSPECIFIED (4) Dysphagia Current Visit: Yes Status: Acute Assessment & Plan: - ST eval with barium - failed swallow eval - NPO - PPN for nutrition - pulled out NG for tube feedings - advanced directive states no peg tube - ST to re-eval this weekend Code(s): R13.10 - DYSPHAGIA, UNSPECIFIED (5) Underweight Current Visit: Yes Status: Acute Assessment & Plan: - BMI 17.6 - nutrition eval Code(s): R63.6 - UNDERWEIGHT (6) Acute renal failure Current Visit: Yes Status: Resolved Assessment & Plan: - resolved since admission (7) Dehydration Current Visit: Yes Status: Resolved Assessment & Plan: - IVF stopped as PPN started - Anion gap on admission 15.7- now 8.4- resolved Code(s): E86.0 - DEHYDRATION (8) Elevated troponin Current Visit: Yes Status: Acute Assessment & Plan: - Trop 0.055, 0.048, 0.049 - Cardiology consulted- no new recs - Echo- EF 49.4% per television technician, awaiting read by cardiology - denies CP Code(s): R79.89 - OTHER SPECIFIED ABNORMAL FINDINGS OF BLOOD CHEMISTRY (9) Altered mental status Current Visit: No Status: Acute Assessment & Plan: - back to baseline - awake and alert x3 - all oral meds held until better able to swallow- ST to eval Code(s): R41.82 - ALTERED MENTAL STATUS, UNSPECIFIED (10) Underweight Current Visit: Yes Status: Acute Assessment & Plan: - BMI 17.6 - nutrition consult - PPN Code(s): R63.6 - UNDERWEIGHT (11) Bradycardia Current Visit: Yes Status: Acute Assessment & Plan: - EKG's reviewed - Tele - Monitor - 2:2 levophed? - trying to wean off medication Code(s): R00.1 - BRADYCARDIA, UNSPECIFIED (12) History of CVA (cerebrovascular accident) Current Visit: Yes Status: Chronic Assessment & Plan: - lives at [facility] in [place] - Chronic right hemiplegia - unable to take Eliquis at this time as NPO - renal dosing lovenox by pharmacy suggested and started yesterday Code(s): Z86.73 - PRSNL HX OF TIA (TIA), AND CEREB INFRC W/O RESID DEFICITS (13) Type II diabetes mellitus Current Visit: Yes Status: Chronic Assessment & Plan: - A1C 01/06/24 5.14- controlled - Humlog s/s, accuchecks Ac/hs VTE: Lovenox Next of KIN: brotherYao [phone] D/C plan 2-3 days Code status: SCO/DNR
[2024-02-11] MEDS ORDERED: Sodium Chloride 0.9% 1000 ML 1,000 ML ONE (13:37)
[2024-02-11] MEDS: Sodium Chloride 0.9% 1000 ML 1,000 ML IV STA (13:45)
[2024-02-11] MEDS: VANCOMYCIN 1 GRAM/200 ML BAG 1 GM/200 ML PIGGYBACK IV SCH (17:43)
[2024-02-11] MEDS ORDERED: DUONEB 0.5-3 MG/3 ml Neb IH PRN (18:27)
[2024-02-11] MEDS: DUONEB 0.5-3 MG/3 ml Neb IH SCH (18:58)
[2024-02-12 07:33] LABS: Absolute Neutrophil Ct (ANC) 12.98 x10^3/uL (1.4-6.9); BASOPHIL % 0.1 % (0.0-0.4); Basophil (Absolute #) 0.01 x10^3/uL (0-0.4); Eosinophil (Absolute #) 0 x10^3/uL (0-0.5); Hematocrit 25.1 % (42-50); Hemoglobin 7.5 g/dL (12.5-18.0); IMMATURE GRAN # 0.22 x10^3u/L (0.00-0.03); IMMATURE GRAN % 1.4 % (0.00-0.4); Lymphocyte (Absolute #) 1.12 x10^3/uL (1.0-4.6); Lymphocytes % 7.3 % (24.0-44.0); Mean Cell Volume 100.4 fL (78-100); Mean Corpuscular Hgb Concent. 29.9 g/dL (32-36); Mean Platelet Volume 11.8 fL (7.5-11.0); Monocyte (Absolute #) 0.94 x10^3/uL (0.0-1.3); Monocytes % 6.2 % (0.0-12.0); NUCLEATED RBC # 0.02 x10^3u/L (0.00-0.01); NUCLEATED RBC % 0.1 % (0.00-0.1); Platelet Count 177 x10^3/uL (150-450); Red Cell Distribution Width 13.7 % (11.5-14.0); White Blood Count 15.3 x10^3/uL (4.0-10.5)
[2024-02-12 07:51] LABS: ALBUMIN 2.8 g/dL (3.5-5.0); ANION GAP 9.4 MEQ/L (5-15); BILIRUBIN,TOTAL 0.2 mg/dL (0.2-1.3); Calcium 9.3 mg/dL (8.4-10.2); Creatinine 1 0.7 mg/dL (0.66-1.25); EST GLOMERULAR FILTRATION RATE 96.1 ML/MIN; MAGNESIUM 2.3 mg/dL (1.6-2.3); Potassium 4.8 mmol/L (3.5-5.1); Total Protein 5.9 g/dL (6.3-8.2)
--- NOTE | 2024-02-12 09:04 | PCM.NOTE ---
Date and Time: 02/12/24 0852 Subjective Assessment: Mr. Stevens is a 73 year old male admitted with acute hypoxic respiratory failure/ septic shock secondary to pneumonia after experiencing a several day history of cough, congestion, and subjective fevers. Upon arrival paitent was hypoxic and hypotensive. Lab data significant for leukocytosis, suspicious UA, baseline anemia, SAVANNAH, gap acidosis, and elevated procal. Chest imaging with diffuse airspace disease. CT with BLl pneumonia. Patient was initiated on levophed drip and weaned off 02/11/24. Barium swallow eval OP 02/10/[address] with recommendations for patient to remain NPO as he was unable to clear pudding thick and nectar thick liquids as he was not muscles were not strong enough to swallow. NG placed for tube feedings to be started and pt pulled it out. PPN started IV for nutrition. Advance directives on chart indicate he does not want a peg tube placed. ST to come02/12/24 to re-eval if pt can eat. Pt's meds on hold until able to do so. SAVANNAH has resolved. WBC 15.3 trending down. Sputum culture with ecoli, and sensitive to cefepime. Vancomycin discontinued. 02/12/24: Met with patient and family at bedside. He is alert and orientated today to self, place, (year stated as 2024), president, and situation. All questions and concerns answered. He denies any complaints this morning. He remains on room air. Lung sounds with fine crackles to bilateral bases. Levophed drip has been discontinued. WBC is now at 15.3<28.8<34.1. Discussed that sputum culture is showing Ecoli and is sensitive to cefepime. We can discontinue the vanc. - Review of Systems Constitutional: No Symptoms Eyes: No Symptoms Ears, Nose, & Throat: No Symptoms Respiratory: Short Of Breath Cardiac: No Symptoms Abdominal/Gastrointestinal: No Symptoms Genitourinary Symptoms: No Symptoms Musculoskeletal: No Symptoms Skin: No Symptoms Neurological: No Symptoms Psychological: No Symptoms Endocrine: No Symptoms Hematologic/Lymphatic: No Symptoms Immunological/Allergic: No Symptoms Objective Exam General Appearance: no apparent distress Neurologic Exam: alert, confusion, other (A&O to self, place, situation) Skin Exam: pale Wound Assessment: Skin/Wound Assessment Wound/Incision Assessment Start: 02/10/24 01:32 Text: Status: Active Freq: Q6H Protocol: Document 02/12/24 08:00 [facility] (Rec: 02/12/24 08:21 [facility] [id number]) Wound/Incision Assessment Coccyx Wound Assessment Shift Assessment Wound Type Pressure Ulcer Dressing Status Dry & Intact Drainage Amount None Drainage Odor None/Absent Primary Dressing Mepilex Comment Mepilex dressing remains C/D/I no shadowing noted Right Posterior Lateral Hand Wound Assessment Shift Assessment Wound Type Pressure Ulcer Dressing Status Dry & Intact Drainage Amount None Drainage Odor None/Absent Primary Dressing Mepilex Border Dressing Comment Mepilex dressing remains C/D/I . Wound Photo Photo Taken No Date: 02/10/24 Time: 00:30 Comment: See chart Eye Exam: PERRL Ears, Nose, Throat Exam: dry mucous membranes Neck Exam: normal inspection Respiratory Exam: crackles/rales (right hemiplagia) Cardiovascular Exam: normal heart sounds, bradycardia Gastrointestinal/Abdomen Exam: soft, normal bowel sounds Extremity Exam: normal inspection, other (right hemiplagia) Back Exam: normal inspection Male Genitalia Exam: deferred Rectal Exam: deferred Objective Data Vital Signs: Vital Signs - 24 hr Temp Pulse Resp BP Pulse Ox 02/12/24 08:30 70 18 126/69 97 02/12/24 08:15 66 18 125/75 02/12/24 08:01 64 17 109/63 02/12/24 07:45 50 L 16 119/56 02/12/24 07:41 97.7 F 62 21 121/58 98 02/12/24 07:15 110/58 02/12/24 07:08 52 L 18 94 L 02/12/24 07:00 121/53 02/12/24 06:45 74 18 113/57 02/12/24 06:31 76 15 104/63 02/12/24 06:16 74 17 141/66 02/12/24 06:00 89 24 106/54 02/12/24 05:45 55 L 15 89/53 02/12/24 05:30 52 L 16 97/51 02/12/24 05:15 54 L 15 108/59 02/12/24 05:01 50 L 13 99/53 02/12/24 04:46 45 L 15 107/56 02/12/24 04:31 51 L 14 99/54 02/12/24 04:15 45 L 14 103/63 02/12/24 04:00 34 L 10 L 90/57 02/12/24 03:45 40 L 14 97/61 02/12/24 03:30 40 L 12 94/49 02/12/24 03:15 49 L 15 99/50 02/12/24 03:01 47 L 20 96/51 02/12/24 02:46 45 L 15 117/47 02/12/24 02:30 49 L 16 106/56 02/12/24 02:15 44 L 13 114/60 02/12/24 02:01 49 L 12 94/57 02/12/24 01:46 51 L 16 112/50 99 02/12/24 01:30 36 L 15 116/64 100 02/12/24 01:16 45 L 15 96/50 02/12/24 01:00 50 L 11 L 107/56 97 02/12/24 00:45 50 L 18 91/52 02/12/24 00:30 45 L 12 98/54 02/12/24 00:16 48 L 15 87/48 100 02/12/24 00:01 98.1 F 67 15 94/53 99 02/11/24 23:45 48 L 13 109/54 98 02/11/24 23:31 46 L 14 90/51 02/11/24 23:15 80 16 104/50 02/11/24 23:01 68 25 H 103/49 98 02/11/24 22:45 45 L 16 121/60 02/11/24 22:30 49 L 15 100/54 100 02/11/24 22:15 48 L 13 98/50 02/11/24 22:01 41 L 16 95/45 100 02/11/24 21:45 49 L 16 109/53 02/11/24 21:30 45 L 18 94/52 02/11/24 21:16 59 L 16 103/52 02/11/24 21:00 59 L 17 108/61 100 02/11/24 20:46 50 L 16 108/50 100 02/11/24 20:31 43 L 16 107/57 02/11/24 20:15 45 L 16 117/54 02/11/24 20:00 97.9 F 48 L 18 100/51 100 02/11/24 19:45 97.8 F 47 L 17 100/49 99 02/11/24 19:41 52 L 02/11/24 19:30 48 L 15 107/53 97 02/11/24 19:15 97.8 F 55 L 12 99/54 99 02/11/24 19:00 56 L 13 101/50 100 02/11/24 18:45 48 L 17 103/51 100 02/11/24 18:30 48 L 16 99/50 100 02/11/24 18:15 54 L 15 97/52 100 02/11/24 18:00 50 L 19 96/51 100 02/11/24 17:45 98.7 F 51 L 15 90/47 100 02/11/24 17:30 50 L 15 112/47 02/11/24 17:16 75 15 95/61 02/11/24 17:00 74 19 133/70 99 02/11/24 16:45 43 L 15 103/69 02/11/24 16:31 45 L 18 118/54 02/11/24 16:15 51 L 17 99/64 100 02/11/24 16:00 55 L 14 114/66 98 02/11/24 15:45 78 17 115/66 99 02/11/24 15:30 82 19 112/66 99 02/11/24 15:16 70 11 L 118/59 100 02/11/24 15:00 79 13 125/66 99 02/11/24 14:46 98.2 F 78 14 114/46 98 02/11/24 14:33 68 17 82/31 99 02/11/24 14:30 50 L 18 98 02/11/24 14:17 68 19 82/48 02/11/24 14:00 66 15 96/48 02/11/24 13:46 47 L 15 89/31 100 02/11/24 13:30 53 L 15 78/35 99 02/11/24 13:15 48 L 8 L 75/34 99 02/11/24 13:09 55 L 14 67/31 100 02/11/24 12:45 53 L 18 89/49 98 02/11/24 12:30 67 20 97/57 100 02/11/24 12:15 52 L 18 89/53 100 02/11/24 12:00 97.7 F 65 16 81/45 99 02/11/24 11:58 47 L 02/11/24 11:45 64 13 76/46 100 02/11/24 11:30 62 15 94/44 99 02/11/24 11:15 67 12 105/60 99 02/11/24 11:00 62 20 102/53 100 02/11/24 10:45 67 18 92/55 99 02/11/24 10:35 57 L 20 99 02/11/24 10:31 97.8 F 65 15 81/58 100 02/11/24 10:15 63 19 103/54 99 02/11/24 10:00 47 L 24 91/57 99 02/11/24 09:46 74 22 94/56 99 02/11/24 09:30 75 18 102/57 98 02/11/24 09:16 62 16 92/52 99 02/11/24 09:00 97.7 F 63 14 131/67 100 Pain Assessment - Last Documented Pain Intensity 0 Intake and Output: Intake & Output 02/09/24 02/10/24 02/11/24 02/12/24 11:59 11:59 11:59 11:59 Intake Total 620 2316 4667 Balance 620 2316 4667 Weight 60.1 kg 59 kg 61.1 kg Lab Results: Lab Results-Last 24 Hours 02/11/24 02/11/24 02/11/24 Range/Units 11:41 18:07 22:19 WBC (4.0-10.5) x10^3/uL RBC (4.1-5.6) x10^6/uL Hgb (12.5-18.0) g/dL Hct (42-50) % MCV (78-100) fL MCH (26-32) pg MCHC (32-36) g/dL RDW (11.5-14.0) % Plt Count (150-450) x10^3/uL MPV (7.5-11.0) fL Gran % (36.0-66.0) % Immature Gran % (Auto) (0.00-0.4) % Nucleat RBC Rel Count (0.00-0.1) % Eos # (Auto) (0-0.5) x10^3/uL Immature Gran # (Auto) (0.00-0.03) x10^3u/L Absolute Lymphs (auto) (1.0-4.6) x10^3/uL Absolute Monos (auto) (0.0-1.3) x10^3/uL Absolute Nucleated RBC (0.00-0.01) x10^3u/L Lymphocytes % (24.0-44.0) % Monocytes % (0.0-12.0) % Eosinophils % (0.00-5.0) % Basophils % (0.0-0.4) % Absolute Granulocytes (1.4-6.9) x10^3/uL Basophils # (0-0.4) x10^3/uL Sodium (135-145) mmol/L Potassium (3.5-5.1) mmol/L Chloride (98-107) mmol/L Carbon Dioxide (22-30) mmol/L Anion Gap (5-15) MEQ/L BUN (9-20) mg/dL Creatinine (0.66-1.25) mg/dL Estimated GFR ML/MIN Glucose (74-106) mg/dL POC Glucometer 148 H 140 H 61 L (74 to 106) mg/dL Calcium (8.4-10.2) mg/dL Magnesium (1.6-2.3) mg/dL Total Bilirubin (0.2-1.3) mg/dL AST (17-59) U/L ALT (0-50) U/L Alkaline Phosphatase (38-126) U/L Serum Total Protein (6.3-8.2) g/dL Albumin (3.5-5.0) g/dL 02/12/24 02/12/24 02/12/24 Range/Units 07:23 07:28 07:28 WBC 15.3 H (4.0-10.5) x10^3/uL RBC 2.50 L (4.1-5.6) x10^6/uL Hgb 7.5 L (12.5-18.0) g/dL Hct 25.1 L (42-50) % MCV 100.4 H (78-100) fL MCH 30.0 (26-32) pg MCHC 29.9 L (32-36) g/dL RDW 13.7 (11.5-14.0) % Plt Count 177 (150-450) x10^3/uL MPV 11.8 H (7.5-11.0) fL Gran % 85.0 H (36.0-66.0) % Immature Gran % (Auto) 1.4 H (0.00-0.4) % Nucleat RBC Rel Count 0.1 (0.00-0.1) % Eos # (Auto) 0 (0-0.5) x10^3/uL Immature Gran # (Auto) 0.22 H (0.00-0.03) x10^3u/L Absolute Lymphs (auto) 1.12 (1.0-4.6) x10^3/uL Absolute Monos (auto) 0.94 (0.0-1.3) x10^3/uL Absolute Nucleated RBC 0.02 H (0.00-0.01) x10^3u/L Lymphocytes % 7.3 L (24.0-44.0) % Monocytes % 6.2 (0.0-12.0) % Eosinophils % 0.0 (0.00-5.0) % Basophils % 0.1 (0.0-0.4) % Absolute Granulocytes 12.98 H (1.4-6.9) x10^3/uL Basophils # 0.01 (0-0.4) x10^3/uL Sodium 144 (135-145) mmol/L Potassium 4.8 (3.5-5.1) mmol/L Chloride 113 H (98-107) mmol/L Carbon Dioxide 26 (22-30) mmol/L Anion Gap 9.4 (5-15) MEQ/L BUN 29 H (9-20) mg/dL Creatinine 0.70 (0.66-1.25) mg/dL Estimated GFR 96.1 ML/MIN Glucose 78 (74-106) mg/dL POC Glucometer 71 L (74 to 106) mg/dL Calcium 9.3 (8.4-10.2) mg/dL Magnesium 2.3 (1.6-2.3) mg/dL Total Bilirubin 0.20 (0.2-1.3) mg/dL AST 23 (17-59) U/L ALT 18 (0-50) U/L Alkaline Phosphatase 116 (38-126) U/L Serum Total Protein 5.9 L (6.3-8.2) g/dL Albumin 2.8 L (3.5-5.0) g/dL Radiology Exams: Radiology Procedures Category Date Time Status MODIFIED BARIUM SWALLOW EXAM Routine Exams 02/10/24 09:26 Completed Multi-Disciplinary Progress Notes: Multi-Disciplinary Progress Notes 02/11/24 18:25 Respiratory Note by Camille Demarco THIS RT TALKED WITH JEREMIE GOLDBERG ROUTEMAN, SHE IS OKAY WITH THIS RT CHANGING DUONEB TREATMENTS TO TID AND ADDING PRN DUONEBS. Initialized on 02/11/24 18:25 - END OF NOTE 02/11/24 13:06 Pharmacy Note by Jonh Broderick IMPROVED SERUM CREATININE 0.80 CR CL = 53 INCREASE DOSE FOR VANCOMYCIN Pharmacokinetic dosing service Date: 02/11/2024 Time: 1300 Objective: Patient: Devendra Stevens Floor: 129 Age: 73 yo Serum creatinine: 0.80 mg/dL Height: 72 Inches Weight (kg): 59 Diagnosis: Relevant medical/social history: Cultures and sensitivities: SPUTUM GRAM NEGATIVE Other labs: WBC = 16764 Assessment: IBW (kg): 77.60 Dosing wt(kg): 59 Estimated Creatinine clearance (ml/min): 66.6 CRCL method: Cockcroft and Gault using ibw(default). Drug selected: Vancomycin Loading dose (mg): NONE Vd (liters): 41.3 (factor used: 0.7 L/kg) Naga (hr-1): 0.060 Half life (hrs): 11.55 Recommended dose: 1000 mg Interval: 18 hrs Infusion time (hrs): 1.5 Predicted peak (mcg/mL): 35.1 Predicted trough (mcg/mL): 13.04 Total body weight is being used for vancomycin dosing. Renal function is stable [ ] /unstable [ xxx] Recommendations: Give Vancomycin 1000 mg q 18 hrs with an expected Cpeak of 35.1 mcg/ml and an expected Ctrough of 13.04 mcg/ml Renal dosing of other antibiotics (review renal dosing of other medications and list guidelines here): TPN, MAXIPIME Thank you for the consult, will continue to follow. Signature: ALYSE Initialized on 02/11/24 13:06 - END OF NOTE Assessment/Plan (1) Septic shock Current Visit: Yes Status: Acute Assessment & Plan: -Secondary to pneumonia -septic on admission, meeting criteria with WBC > 79926, resp > 20, lactic acid at 2.3, and known source -Blood cultures NGTD, Urine culture with no growth -Initially on levophed drip due to hypotension, now stable and discontinued 02/12/24 -Broad spectrum with vanc/cefepime -Sputum culture with Ecoli, sensitive to cefepime, will continue - dc vanc -WBC trending down 15.3<28.8<34.1>33.1 -MRSA -Nasal PCR negative -Resp frank negative -DVT prophylaxis with Lovenox Code(s): A41.9 - SEPSIS, UNSPECIFIED ORGANISM; R65.21 - SEVERE SEPSIS WITH SEPTIC SHOCK (2) Bilateral pneumonia Current Visit: Yes Status: Acute Qualifiers: Pneumonia type: aspiration pneumonia Assessment & Plan: - Chest CT 02/08 Impression: 1. Bilateral groundglass airspace disease greatest in both lower lobes. 2. 7 mm left lower lobe noncalcified nodule. Finding possibly granulomatous as there is evidence for old granulomatous disease elsewhere. 3. Chronic findings including diffuse arteriosclerotic disease and chronic bony findings - Chest XR 02/08 Portable chest again hyperinflated with new subtle bibasilar hazy airspace disease, left greater than right. No consolidation/large effusion. Heart not enlarged. Bony thorax intact again with osteopenia, degenerative changes, and old left clavicle fracture -Remains at RA with spo2 at 97% -WBC improving now at 15.3 -sputum culture positive for Ecoli, sensitive to cefepime, will continue, d/c vanc -ST to re-eval today as there is question of aspiration with failed swallow eval -Continue steroids/duoNebs, consider dose adjustment to steroid tomorrow -Resp frank negative Code(s): J18.9 - PNEUMONIA, UNSPECIFIED ORGANISM (3) Bradycardia Current Visit: Yes Status: Acute Assessment & Plan: - EKG's reviewed - Tele - Monitor - 2:2 levophed? - trying to wean off medication 02/11: -Levophed d/c'd -improved Code(s): R00.1 - BRADYCARDIA, UNSPECIFIED (4) Dysphagia Current Visit: Yes Status: Acute Assessment & Plan: - ST eval with barium - failed swallow eval - NPO - PPN for nutrition - pulled out NG for tube feedings - advanced directive states no peg tube - ST to re-eval today Code(s): R13.10 - DYSPHAGIA, UNSPECIFIED (5) Elevated troponin Current Visit: Yes Status: Acute Assessment & Plan: - Trop 0.055, 0.048, 0.049 - Cardiology consulted- no new recs - Echo- EF 49.4% per veterinary assistant technician, awaiting read by cardiology - denies CP Code(s): R79.89 - OTHER SPECIFIED ABNORMAL FINDINGS OF BLOOD CHEMISTRY (6) Hypotension Current Visit: Yes Status: Acute Assessment & Plan: -stable, levophed d/cd, will continue to monitor Code(s): I95.9 - HYPOTENSION, UNSPECIFIED (7) Acute renal failure Current Visit: Yes Status: Resolved Assessment & Plan: -resolved (8) Underweight Current Visit: Yes Status: Acute Assessment & Plan: - BMI 17.6 - nutrition eval -PPN for nutrition Code(s): R63.6 - UNDERWEIGHT (9) History of CVA (cerebrovascular accident) Current Visit: Yes Status: Chronic Assessment & Plan: - lives at [facility] in [place] - Chronic right hemiplegia - unable to take Eliquis at this time as NPO - renal dosing lovenox by pharmacy suggested and 02/10/24 Code(s): Z86.73 - PRSNL HX OF TIA (TIA), AND CEREB INFRC W/O RESID DEFICITS (10) Type II diabetes mellitus Current Visit: Yes Status: Chronic Assessment & Plan: - A1C 01/06/24 5.14- controlled - Humlog s/s, accuchecks Ac/hs (11) Dehydration Current Visit: Yes Status: Resolved Assessment & Plan: - IVF stopped as PPN started - Anion gap on admission 15.7- now 8.4- resolved Code(s): E86.0 - DEHYDRATION (12) Altered mental status Current Visit: No Status: Acute Assessment & Plan: - back to baseline - awake and alert -more alert today per family - all oral meds held until better able to swallow- ST to eval today VTE: Lovenox Next of KIN: brotherYao [phone] D/C plan 2-3 days Code status: SCO/DNR Code(s): R41.82 - ALTERED MENTAL STATUS, UNSPECIFIED
[2024-02-12] MEDS: Sodium Chloride 0.9% 10 ML FLUSH Syringe IV PRN (13:39)
[2024-02-12] MEDS: Lexapro PO SCH ×2 (14:02→14:04)
[2024-02-12] MEDS: THERAGRAN MULTIVITAMIN PO SCH (14:02)
[2024-02-12] MEDS: Aricept 10 MG PO SCH (22:23)
[2024-02-12] MEDS: ZOCOR 20MG PO SCH (22:24)
[2024-02-13 06:03] LABS: Absolute Neutrophil Ct (ANC) 8.07 x10^3/uL (1.4-6.9); BASOPHIL % 0.1 % (0.0-0.4); Basophil (Absolute #) 0.01 x10^3/uL (0-0.4); Eosinophil (Absolute #) 0 x10^3/uL (0-0.5); Hematocrit 24.2 % (42-50); Hemoglobin 7.3 g/dL (12.5-18.0); IMMATURE GRAN # 0.18 x10^3u/L (0.00-0.03); Lymphocyte (Absolute #) 0.63 x10^3/uL (1.0-4.6); Lymphocytes % 6.9 % (24.0-44.0); Mean Cell Volume 97.6 fL (78-100); Mean Corpuscular Hemoglobin 29.4 pg (26-32); Mean Corpuscular Hgb Concent. 30.2 g/dL (32-36); Mean Platelet Volume 12.2 fL (7.5-11.0); Monocyte (Absolute #) 0.29 x10^3/uL (0.0-1.3); Monocytes % 3.2 % (0.0-12.0); NUCLEATED RBC # 0.02 x10^3u/L (0.00-0.01); NUCLEATED RBC % 0.2 % (0.00-0.1); Neutrophil % 87.8 % (36.0-66.0); Platelet Count 164 x10^3/uL (150-450); Red Blood Count 2.48 x10^6/uL (4.1-5.6); Red Cell Distribution Width 13.6 % (11.5-14.0); White Blood Count 9.2 x10^3/uL (4.0-10.5)
[2024-02-13 06:06] LABS: ALBUMIN 2.7 g/dL (3.5-5.0); ANION GAP 9.2 MEQ/L (5-15); BILIRUBIN,TOTAL 0.4 mg/dL (0.2-1.3); Calcium 8.8 mg/dL (8.4-10.2); Creatinine 1 0.64 mg/dL (0.66-1.25); EST GLOMERULAR FILTRATION RATE 98.7 ML/MIN; MAGNESIUM 2.1 mg/dL (1.6-2.3); Potassium 4.2 mmol/L (3.5-5.1); Total Protein 5.7 g/dL (6.3-8.2)
[2024-02-13] MEDS: ELIQUIS 2.5 MG TABLET PO SCH (09:13)
[2024-02-13] MEDS: solu-CORTEF 100MG IV SCH (09:14)
--- NOTE | 2024-02-13 10:46 | PCM.NOTE ---
Date and Time: 02/13/24 1040 Subjective Assessment: Mr. Stevens is a 73 year old male admitted with acute hypoxic respiratory failure/ septic shock secondary to pneumonia after experiencing a several day history of cough, congestion, and subjective fevers. Upon arrival lashaytent was hypoxic and hypotensive. Lab data significant for leukocytosis, suspicious UA, baseline anemia, SAVANNAH, gap acidosis, and elevated procal. Chest imaging with diffuse airspace disease. CT with BLl pneumonia. Patient was initiated on levophed drip and weaned off 02/11/24. Barium swallow eval OP 02/10/[address] with recommendations for patient to remain NPO as he was unable to clear pudding thick and nectar thick liquids as he was not muscles were not strong enough to swallow. NG placed for tube feedings to be started and pt pulled it out. PPN started IV for nutrition. Advance directives on chart indicate he does not want a peg tube placed. ST re-evaluated patient 02/12/24 with recs for pureed diet by staff for the next few days, ensure protein shakes -ST will re-eval Tuesday or Tuesday. Pt's meds on hold until able to do so. SAVANNAH has resolved. WBC now WNL. Sputum culture with ecoli, and sensitive to cefepime. Vancomycin discontinued. 02/12/24: Met with patient and family at bedside. He is alert and orientated today to self, place, (year stated as 2024), president, and situation. All questions and concerns answered. He denies any complaints this morning. He remains on room air. Lung sounds with fine crackles to bilateral bases. Levophed drip has been discontinued. WBC is now at 15.3<28.8<34.1. Discussed that sputum culture is showing Ecoli and is sensitive to cefepime. We can discontinue the vanc. 02/13/24: Met with patient bedside. A&O x 4. Seems to be gaining strength. Diet has been advanced to pureed and to be fed by staff for the next few days while regaining strength. At baseline RA, with continued fine crackles to bilateral bases. WBC now WNL. Denies fever,cough, sob, cp, abdominal pain, MEZA, dizziness, N/V/D. - Review of Systems Constitutional: No Symptoms Eyes: No Symptoms Ears, Nose, & Throat: No Symptoms Respiratory: Cough, Short Of Breath Cardiac: No Symptoms Abdominal/Gastrointestinal: No Symptoms Genitourinary Symptoms: No Symptoms Musculoskeletal: Back Pain Skin: No Symptoms Neurological: Other (right hemiplagia) Psychological: No Symptoms Endocrine: No Symptoms Hematologic/Lymphatic: Anemia Immunological/Allergic: No Symptoms Objective Exam General Appearance: no apparent distress Neurologic Exam: alert, oriented x 3, cooperative, other (right hemiplagia) Skin Exam: pale Wound Assessment: Skin/Wound Assessment Wound/Incision Assessment Start: 02/10/24 01:32 Text: Status: Active Freq: Q6H Protocol: Document 02/13/24 10:09 [facility] (Rec: 02/13/24 10:10 [facility] [id number]) Wound/Incision Assessment Coccyx Wound Assessment Shift Assessment Wound Type Pressure Ulcer Dressing Status Dry & Intact Drainage Amount None Drainage Odor None/Absent General Appearance Well Approximated Primary Dressing Mepilex Comment New mepilex lite dressing intact. Healing stage I is well approximated no drainage noted. Right Posterior Lateral Hand Wound Assessment Shift Assessment Dressing Status Dry & Intact Drainage Amount None Drainage Odor None/Absent General Appearance Well Approximated Wound Bed Greatest Portion Yellow (Slough) Primary Dressing Absorbant Pad Secondary Dressing tegaderm Wound Photo Photo Taken No Date: 02/10/24 Time: 00:30 Comment: See chart Eye Exam: PERRL Ears, Nose, Throat Exam: dry mucous membranes Neck Exam: normal inspection, full range of motion Respiratory Exam: crackles/rales (BLL) Cardiovascular Exam: regular rate/rhythm, normal heart sounds Gastrointestinal/Abdomen Exam: soft, normal bowel sounds Extremity Exam: other (right hemiplagia) Back Exam: normal inspection Male Genitalia Exam: deferred Rectal Exam: deferred Objective Data Vital Signs: Vital Signs - 24 hr Temp Pulse Resp BP Pulse Ox 02/13/24 09:25 45 L 15 111/42 02/13/24 08:40 93 L 02/13/24 08:00 98.2 F 60 22 148/80 97 02/13/24 07:21 60 18 95 02/13/24 07:01 73 24 137/64 02/13/24 06:26 59 L 14 139/78 02/13/24 06:13 47 L 20 133/71 02/13/24 06:01 71 22 02/13/24 05:01 68 17 109/80 02/13/24 04:01 98.4 F 51 L 19 137/58 99 02/13/24 03:40 52 L 02/13/24 03:02 56 L 15 133/77 02/13/24 02:00 77 27 H 113/73 96 02/13/24 01:00 69 15 105/54 02/13/24 00:00 98.4 F 43 L 19 115/56 02/12/24 23:00 40 L 15 123/70 98 02/12/24 22:00 80 20 120/71 97 02/12/24 21:00 98.3 F 51 L 16 112/60 02/12/24 20:00 66 19 119/55 98 02/12/24 19:00 72 15 89/57 02/12/24 18:17 63 18 96 02/12/24 18:00 72 16 95/58 98 02/12/24 17:00 97.9 F 52 L 16 103/60 97 02/12/24 16:00 52 L 16 108/61 98 02/12/24 15:00 60 17 90/51 97 02/12/24 14:56 52 L 17 107/58 97 02/12/24 14:30 68 17 95/43 02/12/24 13:29 58 L 18 94 L 02/12/24 12:01 97.3 F 46 L 15 125/55 96 02/12/24 12:00 71 Pain Assessment - Last Documented Pain Intensity 0 Intake and Output: Intake & Output 02/10/24 02/11/24 02/12/24 02/13/24 11:59 11:59 11:59 11:59 Intake Total 620 9266 4666 2590 Balance 620 8563 4832 2594 Weight 60.1 kg 59 kg 61.1 kg 61.8 kg Lab Results: Lab Results-Last 24 Hours 02/12/24 02/12/24 02/12/24 Range/Units 11:21 16:34 21:27 WBC (4.0-10.5) x10^3/uL RBC (4.1-5.6) x10^6/uL Hgb (12.5-18.0) g/dL Hct (42-50) % MCV (78-100) fL MCH (26-32) pg MCHC (32-36) g/dL RDW (11.5-14.0) % Plt Count (150-450) x10^3/uL MPV (7.5-11.0) fL Gran % (36.0-66.0) % Immature Gran % (Auto) (0.00-0.4) % Nucleat RBC Rel Count (0.00-0.1) % Eos # (Auto) (0-0.5) x10^3/uL Immature Gran # (Auto) (0.00-0.03) x10^3u/L Absolute Lymphs (auto) (1.0-4.6) x10^3/uL Absolute Monos (auto) (0.0-1.3) x10^3/uL Absolute Nucleated RBC (0.00-0.01) x10^3u/L Lymphocytes % (24.0-44.0) % Monocytes % (0.0-12.0) % Eosinophils % (0.00-5.0) % Basophils % (0.0-0.4) % Absolute Granulocytes (1.4-6.9) x10^3/uL Basophils # (0-0.4) x10^3/uL Sodium (135-145) mmol/L Potassium (3.5-5.1) mmol/L Chloride (98-107) mmol/L Carbon Dioxide (22-30) mmol/L Anion Gap (5-15) MEQ/L BUN (9-20) mg/dL Creatinine (0.66-1.25) mg/dL Estimated GFR ML/MIN Glucose (74-106) mg/dL POC Glucometer 83 97 112 H (74 to 106) mg/dL Calcium (8.4-10.2) mg/dL Magnesium (1.6-2.3) mg/dL Total Bilirubin (0.2-1.3) mg/dL AST (17-59) U/L ALT (0-50) U/L Alkaline Phosphatase (38-126) U/L Serum Total Protein (6.3-8.2) g/dL Albumin (3.5-5.0) g/dL 02/13/24 02/13/24 02/13/24 Range/Units 05:37 05:37 07:27 WBC 9.2 (4.0-10.5) x10^3/uL RBC 2.48 L (4.1-5.6) x10^6/uL Hgb 7.3 L (12.5-18.0) g/dL Hct 24.2 L (42-50) % MCV 97.6 (78-100) fL MCH 29.4 (26-32) pg MCHC 30.2 L (32-36) g/dL RDW 13.6 (11.5-14.0) % Plt Count 164 (150-450) x10^3/uL MPV 12.2 H (7.5-11.0) fL Gran % 87.8 H (36.0-66.0) % Immature Gran % (Auto) 2.0 H (0.00-0.4) % Nucleat RBC Rel Count 0.2 H (0.00-0.1) % Eos # (Auto) 0 (0-0.5) x10^3/uL Immature Gran # (Auto) 0.18 H (0.00-0.03) x10^3u/L Absolute Lymphs (auto) 0.63 L (1.0-4.6) x10^3/uL Absolute Monos (auto) 0.29 (0.0-1.3) x10^3/uL Absolute Nucleated RBC 0.02 H (0.00-0.01) x10^3u/L Lymphocytes % 6.9 L (24.0-44.0) % Monocytes % 3.2 (0.0-12.0) % Eosinophils % 0.0 (0.00-5.0) % Basophils % 0.1 (0.0-0.4) % Absolute Granulocytes 8.07 H (1.4-6.9) x10^3/uL Basophils # 0.01 (0-0.4) x10^3/uL Sodium 140 (135-145) mmol/L Potassium 4.2 (3.5-5.1) mmol/L Chloride 112 H (98-107) mmol/L Carbon Dioxide 24 (22-30) mmol/L Anion Gap 9.2 (5-15) MEQ/L BUN 30 H (9-20) mg/dL Creatinine 0.64 L (0.66-1.25) mg/dL Estimated GFR 98.7 ML/MIN Glucose 101 (74-106) mg/dL POC Glucometer 90 (74 to 106) mg/dL Calcium 8.8 (8.4-10.2) mg/dL Magnesium 2.1 (1.6-2.3) mg/dL Total Bilirubin 0.40 (0.2-1.3) mg/dL AST 21 (17-59) U/L ALT 19 (0-50) U/L Alkaline Phosphatase 107 (38-126) U/L Serum Total Protein 5.7 L (6.3-8.2) g/dL Albumin 2.7 L (3.5-5.0) g/dL Assessment/Plan (1) Septic shock Current Visit: Yes Status: Acute Assessment & Plan: (1) Septic shock Current Visit: Yes Status: Acute Assessment & Plan: -Secondary to pneumonia -septic on admission, meeting criteria with WBC > 91533, resp > 20, lactic acid at 2.3, and known source -Blood cultures NGTD, Urine culture with no growth -Initially on levophed drip due to hypotension, now stable and discontinued 02/12/24 -Broad spectrum with vanc/cefepime -Sputum culture with Ecoli, sensitive to cefepime, will continue - dc vanc -WBC trending down 15.3<28.8<34.1>33.1 -MRSA -Nasal PCR negative -Resp frank negative -DVT prophylaxis with Lovenox 02/12: -no longer meets criteria -continuing cefepime, WBC now wnl Code(s): A41.9 - SEPSIS, UNSPECIFIED ORGANISM; R65.21 - SEVERE SEPSIS WITH SEPTIC SHOCK (2) Bilateral pneumonia Current Visit: Yes Status: Acute Qualifiers: Pneumonia type: aspiration pneumonia Assessment & Plan: - Chest CT 02/08 Impression: 1. Bilateral groundglass airspace disease greatest in both lower lobes. 2. 7 mm left lower lobe noncalcified nodule. Finding possibly granulomatous as there is evidence for old granulomatous disease elsewhere. 3. Chronic findings including diffuse arteriosclerotic disease and chronic bony findings - Chest XR 02/08 Portable chest again hyperinflated with new subtle bibasilar hazy airspace disease, left greater than right. No consolidation/large effusion. Heart not enlarged. Bony thorax intact again with osteopenia, degenerative changes, and old left clavicle fracture -Remains at RA with spo2 at 97% -WBC improving now at 15.3 -sputum culture positive for Ecoli, sensitive to cefepime, will continue, d/c vanc -ST to re-eval today as there is question of aspiration with failed swallow eval -Continue steroids/duoNebs, consider dose adjustment to steroid tomorrow -Resp frank negative 02/12: -at baseline RA -Decrease steroids -continue cefepime Code(s): J18.9 - PNEUMONIA, UNSPECIFIED ORGANISM (3) Bradycardia Current Visit: Yes Status: Acute Assessment & Plan: - EKG's reviewed - Tele - Monitor - 2:2 levophed? - trying to wean off medication 02/11: -Levophed d/c'd -improved Code(s): R00.1 - BRADYCARDIA, UNSPECIFIED (4) Dysphagia Current Visit: Yes Status: Acute Assessment & Plan: - ST eval with barium - failed swallow eval - NPO - PPN for nutrition - pulled out NG for tube feedings - advanced directive states no peg tube - ST to re-eval today 02/12: -ST eval with recs for pureed diet for the next few days with staff to feed, will re-eval 02/12 or 02/13 Code(s): R13.10 - DYSPHAGIA, UNSPECIFIED (5) Elevated troponin Current Visit: Yes Status: Acute Assessment & Plan: - Trop 0.055, 0.048, 0.049 - Cardiology consulted- no new recs - Echo- EF 49.4% per cat scan tech, awaiting read by cardiology - denies CP Code(s): R79.89 - OTHER SPECIFIED ABNORMAL FINDINGS OF BLOOD CHEMISTRY (6) Hypotension Current Visit: Yes Status: Acute Assessment & Plan: -stable, levophed d/cd, will continue to monitor Code(s): I95.9 - HYPOTENSION, UNSPECIFIED (7) Acute renal failure Current Visit: Yes Status: Resolved Assessment & Plan: -resolved (8) Underweight Current Visit: Yes Status: Acute Assessment & Plan: - BMI 17.6 - nutrition eval -PPN for nutrition Code(s): R63.6 - UNDERWEIGHT (9) History of CVA (cerebrovascular accident) Current Visit: Yes Status: Chronic Assessment & Plan: - lives at [facility] in [place] - Chronic right hemiplegia - unable to take Eliquis at this time as NPO - renal dosing lovenox by pharmacy suggested and 02/10/2402/12: -resume home eliquis/ dc lovenox Code(s): Z86.73 - PRSNL HX OF TIA (TIA), AND CEREB INFRC W/O RESID DEFICITS (10) Type II diabetes mellitus Current Visit: Yes Status: Chronic Assessment & Plan: - A1C 01/06/24 5.14- controlled - Humlog s/s, accuchecks Ac/hs (11) Dehydration Current Visit: Yes Status: Resolved Assessment & Plan: - IVF stopped as PPN started - Anion gap on admission 15.7- now 8.4- resolved Code(s): E86.0 - DEHYDRATION (12) Altered mental status Current Visit: No Status: Acute Assessment & Plan: - back to baseline - awake and alert -more alert today per family - all oral meds held until better able to swallow- ST to eval today 02/12: -at baseline, oral meds resumed - will hold zyprexa for now # Anemia -appears chronic with baseline around 8-9, Hgb at 7.3 today, will continue to monitor and transfuse if hgb <7 VTE: Eliquis Next of KIN: brotherYao [phone] D/C plan 2-3 days Code status: SCO/DNR Code(s): R41.82 - ALTERED MENTAL STATUS, UNSPECIFIED Code(s): A41.9 - SEPSIS, UNSPECIFIED ORGANISM; R65.21 - SEVERE SEPSIS WITH SEPTIC SHOCK (2) Bilateral pneumonia Current Visit: Yes Status: Acute Qualifiers: Pneumonia type: aspiration pneumonia Code(s): J18.9 - PNEUMONIA, UNSPECIFIED ORGANISM (3) Bradycardia Current Visit: Yes Status: Acute Code(s): R00.1 - BRADYCARDIA, UNSPECIFIED (4) Dysphagia Current Visit: Yes Status: Acute Code(s): R13.10 - DYSPHAGIA, UNSPECIFIED (5) Elevated troponin Current Visit: Yes Status: Acute Code(s): R79.89 - OTHER SPECIFIED ABNORMAL FINDINGS OF BLOOD CHEMISTRY (6) Hypotension Current Visit: Yes Status: Acute Code(s): I95.9 - HYPOTENSION, UNSPECIFIED (7) Acute renal failure Current Visit: Yes Status: Resolved (8) Underweight Current Visit: Yes Status: Acute Code(s): R63.6 - UNDERWEIGHT (9) History of CVA (cerebrovascular accident) Current Visit: Yes Status: Chronic Code(s): Z86.73 - PRSNL HX OF TIA (TIA), AND CEREB INFRC W/O RESID DEFICITS (10) Type II diabetes mellitus Current Visit: Yes Status: Chronic (11) Dehydration Current Visit: Yes Status: Resolved Code(s): E86.0 - DEHYDRATION (12) Altered mental status Current Visit: No Status: Acute Code(s): R41.82 - ALTERED MENTAL STATUS, UNSPECIFIED (13) Anemia Current Visit: Yes Status: Acute Code(s): D64.9 - ANEMIA, UNSPECIFIED
[2024-02-13] MEDS ORDERED: Sterile H2O 10 ml IJ ONE (20:55)
[2024-02-14 04:30] LABS: Absolute Neutrophil Ct (ANC) 8.93 x10^3/uL (1.4-6.9); BASOPHIL % 0.1 % (0.0-0.4); Basophil (Absolute #) 0.01 x10^3/uL (0-0.4); Eosinophil (Absolute #) 0 x10^3/uL (0-0.5); IMMATURE GRAN # 0.41 x10^3u/L (0.00-0.03); IMMATURE GRAN % 3.9 % (0.00-0.4); Lymphocyte (Absolute #) 0.79 x10^3/uL (1.0-4.6); Lymphocytes % 7.5 % (24.0-44.0); Mean Cell Volume 96.6 fL (78-100); Mean Corpuscular Hemoglobin 29.4 pg (26-32); Mean Corpuscular Hgb Concent. 30.4 g/dL (32-36); Mean Platelet Volume 11.8 fL (7.5-11.0); Monocyte (Absolute #) 0.39 x10^3/uL (0.0-1.3); Monocytes % 3.7 % (0.0-12.0); NUCLEATED RBC # 0.02 x10^3u/L (0.00-0.01); NUCLEATED RBC % 0.2 % (0.00-0.1); Neutrophil % 84.8 % (36.0-66.0); Platelet Count 169 x10^3/uL (150-450); Red Blood Count 2.38 x10^6/uL (4.1-5.6); Red Cell Distribution Width 13.6 % (11.5-14.0); White Blood Count 10.5 x10^3/uL (4.0-10.5)
[2024-02-14 04:55] LABS: ALBUMIN 2.5 g/dL (3.5-5.0); ANION GAP 6.4 MEQ/L (5-15); BILIRUBIN,TOTAL 0.3 mg/dL (0.2-1.3); Calcium 8.5 mg/dL (8.4-10.2); Creatinine 1 0.59 mg/dL (0.66-1.25); EST GLOMERULAR FILTRATION RATE 101.2 ML/MIN; MAGNESIUM 1.9 mg/dL (1.6-2.3); Potassium 3.9 mmol/L (3.5-5.1); Total Protein 5.5 g/dL (6.3-8.2)
[2024-02-14 06:49] LABS: Iron 19 ug/dL (49-181); Iron Saturation 7 % (20-39); TIBC 272 ug/dL (261-497)
[2024-02-14 08:35] LABS: IFOB TEST RESULTS POSITIVE (NEGATIVE)
[2024-02-14] MEDS: Venofer 100 MG/5 ML*** 200 MG in Sodium Chloride 0.9% 100 ML IV SCH (08:37)
[2024-02-14] MEDS: Sodium Chloride 0.9% 1000 ML 1,000 ML IV SCH (08:44)
[2024-02-14] MEDS: solu-CORTEF 100MG IV SCH (08:55)
[2024-02-14 09:30] LABS: ABO TYPING A; Antibody Screen NEGATIVE (NEGATIVE); RH TYPING POSITIVE
[2024-02-14 09:31] LABS: CROSS MATCH (PRBC) COMPATIBLE (COMPATIBLE)
--- NOTE | 2024-02-14 13:07 | PCM.NOTE ---
Date and Time: 02/14/24 1302 Subjective Assessment: Mr. Stevens is a 73 year old male admitted with acute hypoxic respiratory failure/ septic shock secondary to pneumonia after experiencing a several day history of cough, congestion, and subjective fevers. Upon arrival lashaytent was hypoxic and hypotensive. Lab data significant for leukocytosis, suspicious UA, baseline anemia, SAVANNAH, gap acidosis, and elevated procal. Chest imaging with diffuse airspace disease. CT with BLl pneumonia. Patient was initiated on levophed drip and weaned off 02/11/24. Barium swallow eval OP 02/10/[address] with recommendations for patient to remain NPO as he was unable to clear pudding thick and nectar thick liquids as he was not muscles were not strong enough to swallow. NG placed for tube feedings to be started and pt pulled it out. PPN started IV for nutrition. Advance directives on chart indicate he does not want a peg tube placed. ST re-evaluated patient 02/12/24 with recs for pureed diet by staff for the next few days, ensure protein shakes -ST will re-eval Tuesday or Tuesday. Pt's meds on hold until able to do so. SAVANNAH has resolved. WBC now WNL. Sputum culture with ecoli, and sensitive to cefepime. Vancomycin discontinued. 02/12/24: Met with patient and family at bedside. He is alert and orientated today to self, place, (year stated as 2024), president, and situation. All questions and concerns answered. He denies any complaints this morning. He remains on room air. Lung sounds with fine crackles to bilateral bases. Levophed drip has been discontinued. WBC is now at 15.3<28.8<34.1. Discussed that sputum culture is showing Ecoli and is sensitive to cefepime. We can discontinue the vanc. 02/13/24: Met with patient bedside. A&O x 4. Seems to be gaining strength. Diet has been advanced to pureed and to be fed by staff for the next few days while regaining strength. At baseline RA, with continued fine crackles to bilateral bases. WBC now WNL. Denies fever,cough, sob, cp, abdominal pain, MEZA, dizziness, N/V/D. 02/14/24: No overnight events noted. Patient somnolent during interview. Discussed lab finding with hgb at 7.0 today. Will transfuse patient. Stools were positive for occult stool. May have to complete GI workup as OP. Denies fever,cough, sob, cp, abdominal pain, MEZA, dizziness, N/V/D. - Review of Systems Constitutional: Lethargy, Weakness Eyes: No Symptoms Ears, Nose, & Throat: No Symptoms Respiratory: No Symptoms Cardiac: No Symptoms Abdominal/Gastrointestinal: No Symptoms Genitourinary Symptoms: No Symptoms Musculoskeletal: No Symptoms Skin: No Symptoms Neurological: Lethargy Psychological: Depression Endocrine: No Symptoms Hematologic/Lymphatic: No Symptoms Immunological/Allergic: No Symptoms Objective Exam General Appearance: no apparent distress Neurologic Exam: alert, oriented x 3, cooperative Skin Exam: pale Wound Assessment: Skin/Wound Assessment Wound/Incision Assessment Start: 02/10/24 01:32 Text: Status: Active Freq: Q6H Protocol: Document 02/14/24 08:00 [facility] (Rec: 02/14/24 10:01 [facility] [id number]) Wound/Incision Assessment Coccyx Wound Assessment Shift Assessment Wound Type Pressure Ulcer Dressing Status Dry & Intact Drainage Amount None Drainage Odor None/Absent Primary Dressing MEPILEX Comment Dressing remains C/D/I Right Posterior Lateral Hand Wound Assessment Shift Assessment Wound Type WOUND/ABRASION Wound Stage Non Pressure Wound Dressing Status Dry & Intact Drainage Amount None Primary Dressing Non-Adherent Gauze Pads Secondary Dressing TEGADERM Comment Dressing remains C/D/I Wound Photo Photo Taken No Date: 02/10/24 Time: 00:30 Comment: See chart Eye Exam: PERRL Ears, Nose, Throat Exam: normal ENT inspection Neck Exam: normal inspection Respiratory Exam: crackles/rales Cardiovascular Exam: regular rate/rhythm, normal heart sounds Gastrointestinal/Abdomen Exam: soft, normal bowel sounds Extremity Exam: normal inspection Back Exam: normal inspection Male Genitalia Exam: deferred Rectal Exam: deferred Objective Data Vital Signs: Vital Signs - 24 hr Temp Pulse Resp BP BP Pulse Ox 02/14/24 12:54 48 L 16 95 02/14/24 12:20 98.0 F 59 L 148/81 02/14/24 10:25 97.5 F 58 L 116/59 02/14/24 09:55 97.3 F 59 L 112/57 02/14/24 09:35 97.5 F 68 122/59 05/28/24 07:03 97.3 F 69 18 128/58 96 02/14/24 05:37 75 16 97 02/14/24 04:00 97.9 F 46 L 17 127/60 93 L 02/13/24 23:54 97.8 F 54 L 16 116/49 97 02/13/24 19:51 98.7 F 70 17 100/57 97 02/13/24 19:00 72 15 103/51 02/13/24 18:59 74 15 100/57 02/13/24 18:41 60 16 93 L 02/13/24 18:01 71 17 93/59 02/13/24 17:43 98 02/13/24 17:00 71 15 122/60 02/13/24 16:00 56 L 16 110/60 02/13/24 15:00 62 16 98/56 98 02/13/24 14:01 70 17 94/50 97 02/13/24 13:11 54 L 18 95 Pain Assessment - Last Documented Pain Intensity 0 Intake and Output: Intake & Output 02/12/24 02/13/24 02/14/24 02/15/24 11:59 11:59 11:59 11:59 Intake Total 4667 2595 1560 604 Balance 4667 2595 1560 604 Weight 61.1 kg 61.8 kg 64.1 kg Lab Results: Lab Results-Last 24 Hours 02/13/24 02/13/24 02/14/24 Range/Units 16:21 21:22 04:15 WBC 10.5 (4.0-10.5) x10^3/uL RBC 2.38 L (4.1-5.6) x10^6/uL Hgb 7.0 L* (12.5-18.0) g/dL Hct 23.0 L (42-50) % MCV 96.6 (78-100) fL MCH 29.4 (26-32) pg MCHC 30.4 L (32-36) g/dL RDW 13.6 (11.5-14.0) % Plt Count 169 (150-450) x10^3/uL MPV 11.8 H (7.5-11.0) fL Gran % 84.8 H (36.0-66.0) % Immature Gran % (Auto) 3.9 H (0.00-0.4) % Nucleat RBC Rel Count 0.2 H (0.00-0.1) % Eos # (Auto) 0 (0-0.5) x10^3/uL Immature Gran # (Auto) 0.41 H (0.00-0.03) x10^3u/L Absolute Lymphs (auto) 0.79 L (1.0-4.6) x10^3/uL Absolute Monos (auto) 0.39 (0.0-1.3) x10^3/uL Absolute Nucleated RBC 0.02 H (0.00-0.01) x10^3u/L Lymphocytes % 7.5 L (24.0-44.0) % Monocytes % 3.7 (0.0-12.0) % Eosinophils % 0.0 (0.00-5.0) % Basophils % 0.1 (0.0-0.4) % Absolute Granulocytes 8.93 H (1.4-6.9) x10^3/uL Basophils # 0.01 (0-0.4) x10^3/uL Sodium (135-145) mmol/L Potassium (3.5-5.1) mmol/L Chloride (98-107) mmol/L Carbon Dioxide (22-30) mmol/L Anion Gap (5-15) MEQ/L BUN (9-20) mg/dL Creatinine (0.66-1.25) mg/dL Estimated GFR ML/MIN Glucose (74-106) mg/dL POC Glucometer 152 H 126 H (74 to 106) mg/dL Calcium (8.4-10.2) mg/dL Magnesium (1.6-2.3) mg/dL Iron (49-181) ug/dL TIBC (261-497) ug/dL Iron Saturation (20-39) % Total Bilirubin (0.2-1.3) mg/dL AST (17-59) U/L ALT (0-50) U/L Alkaline Phosphatase (38-126) U/L Serum Total Protein (6.3-8.2) g/dL Albumin (3.5-5.0) g/dL Stl Occult Blood (IFOB) (NEGATIVE) ABO Group Rh Factor Antibody Screen (NEGATIVE) Crossmatch (COMPATIBLE) 02/14/24 02/14/24 02/14/24 Range/Units 04:15 04:15 06:22 WBC (4.0-10.5) x10^3/uL RBC (4.1-5.6) x10^6/uL Hgb (12.5-18.0) g/dL Hct (42-50) % MCV (78-100) fL MCH (26-32) pg MCHC (32-36) g/dL RDW (11.5-14.0) % Plt Count (150-450) x10^3/uL MPV (7.5-11.0) fL Gran % (36.0-66.0) % Immature Gran % (Auto) (0.00-0.4) % Nucleat RBC Rel Count (0.00-0.1) % Eos # (Auto) (0-0.5) x10^3/uL Immature Gran # (Auto) (0.00-0.03) x10^3u/L Absolute Lymphs (auto) (1.0-4.6) x10^3/uL Absolute Monos (auto) (0.0-1.3) x10^3/uL Absolute Nucleated RBC (0.00-0.01) x10^3u/L Lymphocytes % (24.0-44.0) % Monocytes % (0.0-12.0) % Eosinophils % (0.00-5.0) % Basophils % (0.0-0.4) % Absolute Granulocytes (1.4-6.9) x10^3/uL Basophils # (0-0.4) x10^3/uL Sodium 138 (135-145) mmol/L Potassium 3.9 (3.5-5.1) mmol/L Chloride 109 H (98-107) mmol/L Carbon Dioxide 27 (22-30) mmol/L Anion Gap 6.4 (5-15) MEQ/L BUN 26 H (9-20) mg/dL Creatinine 0.59 L (0.66-1.25) mg/dL Estimated GFR 101.2 ML/MIN Glucose 109 H (74-106) mg/dL POC Glucometer 103 (74 to 106) mg/dL Calcium 8.5 (8.4-10.2) mg/dL Magnesium 1.9 (1.6-2.3) mg/dL Iron 19 L (49-181) ug/dL TIBC 272 (261-497) ug/dL Iron Saturation 7 L (20-39) % Total Bilirubin 0.30 (0.2-1.3) mg/dL AST 17 (17-59) U/L ALT 17 (0-50) U/L Alkaline Phosphatase 93 (38-126) U/L Serum Total Protein 5.5 L (6.3-8.2) g/dL Albumin 2.5 L (3.5-5.0) g/dL Stl Occult Blood (IFOB) (NEGATIVE) ABO Group Rh Factor Antibody Screen (NEGATIVE) Crossmatch (COMPATIBLE) 02/14/24 02/14/24 02/14/24 Range/Units 08:19 08:27 11:17 WBC (4.0-10.5) x10^3/uL RBC (4.1-5.6) x10^6/uL Hgb (12.5-18.0) g/dL Hct (42-50) % MCV (78-100) fL MCH (26-32) pg MCHC (32-36) g/dL RDW (11.5-14.0) % Plt Count (150-450) x10^3/uL MPV (7.5-11.0) fL Gran % (36.0-66.0) % Immature Gran % (Auto) (0.00-0.4) % Nucleat RBC Rel Count (0.00-0.1) % Eos # (Auto) (0-0.5) x10^3/uL Immature Gran # (Auto) (0.00-0.03) x10^3u/L Absolute Lymphs (auto) (1.0-4.6) x10^3/uL Absolute Monos (auto) (0.0-1.3) x10^3/uL Absolute Nucleated RBC (0.00-0.01) x10^3u/L Lymphocytes % (24.0-44.0) % Monocytes % (0.0-12.0) % Eosinophils % (0.00-5.0) % Basophils % (0.0-0.4) % Absolute Granulocytes (1.4-6.9) x10^3/uL Basophils # (0-0.4) x10^3/uL Sodium (135-145) mmol/L Potassium (3.5-5.1) mmol/L Chloride (98-107) mmol/L Carbon Dioxide (22-30) mmol/L Anion Gap (5-15) MEQ/L BUN (9-20) mg/dL Creatinine (0.66-1.25) mg/dL Estimated GFR ML/MIN Glucose (74-106) mg/dL POC Glucometer 100 (74 to 106) mg/dL Calcium (8.4-10.2) mg/dL Magnesium (1.6-2.3) mg/dL Iron (49-181) ug/dL TIBC (261-497) ug/dL Iron Saturation (20-39) % Total Bilirubin (0.2-1.3) mg/dL AST (17-59) U/L ALT (0-50) U/L Alkaline Phosphatase (38-126) U/L Serum Total Protein (6.3-8.2) g/dL Albumin (3.5-5.0) g/dL Stl Occult Blood (IFOB) POSITIVE A (NEGATIVE) ABO Group A Rh Factor POSITIVE Antibody Screen NEGATIVE (NEGATIVE) Crossmatch COMPATIBLE (COMPATIBLE) Multi-Disciplinary Progress Notes: Multi-Disciplinary Progress Notes 02/14/24 11:46 Plan of Care Note by Margot#[id number] Speech Therapy Plan of Care Plan of Care Start: 02/12/24 13:43 Freq: Status: Active Protocol: Document 02/12/24 13:43 (Rec: 02/12/24 13:46 [id number]) E-Sign 02/12/24 13:43 Speech Therapy Plan of Care Problem List 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 Precautions ASPIRATION Functional Goals of Treatment PATIENT WILL DEMONSTRATE TOLERANCE & SAFETY FOR THE MOST LENIENT DIET/LIQUID CONSISTENCY WITHOUT S/S OF ASPIRATION. Goal #1 PATIENT WILL DEMONSTRATE TOLERANCE & SAFETY FOR ORAL INTAKE OF PUREED DIET WITHOUT CLINICAL S/S OF ASPIRATION. Status Initial Goal #2 PATIENT WILL DEMONSTRATE TOLERANCE & SAFETY FOR ORAL INTAKE OF MECHANICAL SOFT DIET WITHOUT CLINICAL S/S OF ASPIRATION. Status Initial Goal #3 PATIENT WILL DEMONSTRATE TOLERANCE & SAFETY FOR ORAL INTAKE OF REGULAR LIQUIDS WITHOUT CLINICAL S/S OF ASPIRATION. Status Initial Frequency of Treatment: 5x/week Duration of Treatment: Hospital Stay Goals & POC discussed with patient/ Yes family Patient is aware of diagnosis and Yes prognosis Patient is receptive to plan of care Yes Rehabilitation Potential Good Patient Discharge Plan Description Long Term Facility Patient Discharge Plan Comment DISCHARGE WHEN MEDICALLY ABLE TO RETURN TO LTC FACILITY. Initialized on 02/14/24 11:46 - END OF NOTE 02/14/24 10:57 Case Management Note by Amie Acuña PATIENT CONFUSED THIS AM- NO CHANGE IN DC PLANS- PATIENT TO RETURN TO [facility] AT TIME OF DC Initialized on 02/14/24 10:57 - END OF NOTE Assessment/Plan (1) Septic shock Current Visit: Yes Status: Acute Assessment & Plan: -Secondary to pneumonia -septic on admission, meeting criteria with WBC > 24343, resp > 20, lactic acid at 2.3, and known source -Blood cultures NGTD, Urine culture with no growth -Initially on levophed drip due to hypotension, now stable and discontinued 02/12/24 -Broad spectrum with vanc/cefepime -Sputum culture with Ecoli, sensitive to cefepime, will continue - dc vanc -WBC trending down 15.3<28.8<34.1>33.1 -MRSA -Nasal PCR negative -Resp frank negative -DVT prophylaxis with Lovenox 02/12: -no longer meets criteria -continuing cefepime, WBC now wnl Code(s): A41.9 - SEPSIS, UNSPECIFIED ORGANISM; R65.21 - SEVERE SEPSIS WITH SEPTIC SHOCK (2) Bilateral pneumonia Current Visit: Yes Status: Acute Qualifiers: Pneumonia type: aspiration pneumonia Assessment & Plan: - Chest CT 02/08 Impression: 1. Bilateral groundglass airspace disease greatest in both lower lobes. 2. 7 mm left lower lobe noncalcified nodule. Finding possibly granulomatous as there is evidence for old granulomatous disease elsewhere. 3. Chronic findings including diffuse arteriosclerotic disease and chronic bony findings - Chest XR 02/08 Portable chest again hyperinflated with new subtle bibasilar hazy airspace disease, left greater than right. No consolidation/large effusion. Heart not enlarged. Bony thorax intact again with osteopenia, degenerative changes, and old left clavicle fracture -Remains at RA with spo2 at 97% -WBC improving now at 15.3 -sputum culture positive for Ecoli, sensitive to cefepime, will continue, d/c vanc -ST to re-eval today as there is question of aspiration with failed swallow eval -Continue steroids/duoNebs, consider dose adjustment to steroid tomorrow -Resp frank negative 02/12: -at baseline RA -Decrease steroids -continue cefepime 02/13: -continue cefepime, reduce steroid to daily Code(s): J18.9 - PNEUMONIA, UNSPECIFIED ORGANISM (3) Bradycardia Current Visit: Yes Status: Acute Assessment & Plan: - EKG's reviewed - Tele - Monitor - 2:2 levophed? - trying to wean off medication 02/11: -Levophed d/c'd -improved Code(s): R00.1 - BRADYCARDIA, UNSPECIFIED (4) Dysphagia Current Visit: Yes Status: Acute Assessment & Plan: - ST eval with barium - failed swallow eval - NPO - PPN for nutrition - pulled out NG for tube feedings - advanced directive states no peg tube - ST to re-eval today 02/12: -ST eval with recs for pureed diet for the next few days with staff to feed, will re-eval 02/12 or 02/13 Code(s): R13.10 - DYSPHAGIA, UNSPECIFIED (5) Elevated troponin Current Visit: Yes Status: Acute Assessment & Plan: - Trop 0.055, 0.048, 0.049 - Cardiology consulted- no new recs - Echo- EF 49.4% per farm equipment service technician, awaiting read by cardiology - denies CP Code(s): R79.89 - OTHER SPECIFIED ABNORMAL FINDINGS OF BLOOD CHEMISTRY (6) Hypotension Current Visit: Yes Status: Acute Assessment & Plan: -stable, levophed d/cd, will continue to monitor Code(s): I95.9 - HYPOTENSION, UNSPECIFIED (7) Acute renal failure Current Visit: Yes Status: Resolved Assessment & Plan: -resolved (8) Underweight Current Visit: Yes Status: Acute Assessment & Plan: - BMI 17.6 - nutrition eval -PPN for nutrition Code(s): R63.6 - UNDERWEIGHT (9) History of CVA (cerebrovascular accident) Current Visit: Yes Status: Chronic Assessment & Plan: - lives at [facility] in [place] - Chronic right hemiplegia - unable to take Eliquis at this time as NPO - renal dosing lovenox by pharmacy suggested and 02/10/2402/12: -resume home eliquis/ dc lovenox 02/13: -Hold eliquis due to GI bleed Code(s): Z86.73 - PRSNL HX OF TIA (TIA), AND CEREB INFRC W/O RESID DEFICITS (10) Type II diabetes mellitus Current Visit: Yes Status: Chronic Assessment & Plan: - A1C 01/06/24 5.14- controlled - Humlog s/s, accuchecks Ac/hs (11) Dehydration Current Visit: Yes Status: Resolved Assessment & Plan: - IVF stopped as PPN started - Anion gap on admission 15.7- now 8.4- resolved Code(s): E86.0 - DEHYDRATION (12) Altered mental status Current Visit: No Status: Acute Assessment & Plan: - back to baseline - awake and alert -more alert today per family - all oral meds held until better able to swallow- ST to eval today 02/12: -at baseline, oral meds resumed - will hold zyprexa for now # Anemia -appears chronic with baseline around 8-9, Hgb at 7.0 today, will transfuse with 1 unit LPRBC -venofer #GI Bleed -Occult stool positive -HGB at 7, will transfuse with 1 unit LPRBC -hold eliquis -Protonix -Avoid NSAIDs/ASA -H&H q8H -consult surg, most likely will have to be done as OP VTE: Eliquis - hold bilat SCD Next of KIN: brother, Yao Stevens [phone] D/C plan 2-3 days Code status: SCO/DNR Code(s): R41.82 - ALTERED MENTAL STATUS, UNSPECIFIED Code(s): A41.9 - SEPSIS, UNSPECIFIED ORGANISM; R65.21 - SEVERE SEPSIS WITH SEPTIC SHOCK (2) Bilateral pneumonia Current Visit: Yes Status: Acute Qualifiers: Pneumonia type: aspiration pneumonia Code(s): J18.9 - PNEUMONIA, UNSPECIFIED ORGANISM (3) Bradycardia Current Visit: Yes Status: Acute Code(s): R00.1 - BRADYCARDIA, UNSPECIFIED (4) Dysphagia Current Visit: Yes Status: Acute Code(s): R13.10 - DYSPHAGIA, UNSPECIFIED (5) Elevated troponin Current Visit: Yes Status: Acute Code(s): R79.89 - OTHER SPECIFIED ABNORMAL FINDINGS OF BLOOD CHEMISTRY (6) Hypotension Current Visit: Yes Status: Acute Code(s): I95.9 - HYPOTENSION, UNSPECIFIED (7) Acute renal failure Current Visit: Yes Status: Resolved (8) Underweight Current Visit: Yes Status: Acute Code(s): R63.6 - UNDERWEIGHT (9) History of CVA (cerebrovascular accident) Current Visit: Yes Status: Chronic Code(s): Z86.73 - PRSNL HX OF TIA (TIA), AND CEREB INFRC W/O RESID DEFICITS (10) Type II diabetes mellitus Current Visit: Yes Status: Chronic (11) Dehydration Current Visit: Yes Status: Resolved Code(s): E86.0 - DEHYDRATION (12) Altered mental status Current Visit: No Status: Acute Code(s): R41.82 - ALTERED MENTAL STATUS, UNSPECIFIED (13) Anemia Current Visit: Yes Status: Acute Code(s): D64.9 - ANEMIA, UNSPECIFIED
[2024-02-14] MEDS: Lasix 20 MG/2 ML IV SCH (13:11)
[2024-02-14] MEDS: PROTONIX 40 MG IV IV SCH (13:35)
[2024-02-14 13:36] LABS: Hematocrit 29.5 % (42-50); Hemoglobin 9.3 g/dL (12.5-18.0)
[2024-02-15 04:43] LABS: BASOPHIL % 0.3 % (0.0-0.4); Basophil (Absolute #) 0.04 x10^3/uL (0-0.4); Eosinophil % 0.7 % (0.00-5.0); Eosinophil (Absolute #) 0.09 x10^3/uL (0-0.5); Hematocrit 26.7 % (42-50); Hemoglobin 8.8 g/dL (12.5-18.0); IMMATURE GRAN # 0.52 x10^3u/L (0.00-0.03); IMMATURE GRAN % 3.8 % (0.00-0.4); Lymphocyte (Absolute #) 1.99 x10^3/uL (1.0-4.6); Lymphocytes % 14.4 % (24.0-44.0); Mean Cell Volume 92.4 fL (78-100); Mean Corpuscular Hemoglobin 30.4 pg (26-32); Mean Platelet Volume 12.4 fL (7.5-11.0); Monocyte (Absolute #) 0.85 x10^3/uL (0.0-1.3); Monocytes % 6.2 % (0.0-12.0); NUCLEATED RBC # 0.05 x10^3u/L (0.00-0.01); NUCLEATED RBC % 0.4 % (0.00-0.1); Neutrophil % 74.6 % (36.0-66.0); Platelet Count 178 x10^3/uL (150-450); Red Blood Count 2.89 x10^6/uL (4.1-5.6); White Blood Count 13.8 x10^3/uL (4.0-10.5)
[2024-02-15 05:08] LABS: ALBUMIN 2.5 g/dL (3.5-5.0); ANION GAP 3.8 MEQ/L (5-15); BILIRUBIN,TOTAL 0.6 mg/dL (0.2-1.3); Calcium 8.6 mg/dL (8.4-10.2); Creatinine 1 0.57 mg/dL (0.66-1.25); EST GLOMERULAR FILTRATION RATE 101.6 ML/MIN; MAGNESIUM 1.9 mg/dL (1.6-2.3); Potassium 3.4 mmol/L (3.5-5.1); Total Protein 5.4 g/dL (6.3-8.2)
[2024-02-15] MEDS: K-LYTE PO SCH (08:15)
--- NOTE | 2024-02-15 09:16 | CONS ---
CONSULT DATE: 02/14/2024 HISTORY: The history mainly taken from the chart and old records as the patient has dementia and just saying "no" as the answer to all questions. Apparently, he is a 73-year-old gentleman he has been here for five to six days. He had some wheezing, pneumonia and some weakness. He has prior history of dementia, CVA with right-sided hemiplegia. He has been on Eliquis in the past. It sounds like, according to the nurses, that he had some chronic anemia and has been down to 7. His hemoglobin was 9.3. He is on some DuoNeb. He has been on some oxygen. PAST MEDICAL HISTORY: Hypertension, hyperlipidemia, anxiety, depression. PAST SURGICAL HISTORY: Unable to obtain surgical history from the patient. There are no big laparotomy scars on exam that I can see. It sounds like he had a barium swallow while the patient has been here and chest x-ray. HOME MEDICATIONS: Prior to admission were Lisinopril, atorvastatin, Venelex ointment, Diprosone cream, donepezil, Lexapro, melatonin, menthol/zinc oxide, multivitamins, Olanzapine, selenium sulfide, Eliquis, acetaminophen, cefuroxime in the past. ALLERGIES: NKDA. FAMILY HISTORY: Unable to obtain from the patient. He is a very poor historian. SOCIAL HISTORY: No smoking or alcohol abuse. He is from a shelter according to the staff. REVIEW OF SYSTEMS: He had stroke in the past. He has dementia and he does answer no to almost all questions. LAB DATA AND TESTS: CT chest with ground glass. No consolidation. PHYSICAL EXAMINATION: GENERAL: HEENT: Sclera nonicteric. EOMI. Oral mucous membranes moist. NECK: No JVD. CHEST: Equal excursion. CVS: Regular rhythm and pulse. ABDOMEN: Soft. No major laparotomy scars visualized on him. EXTREMITIES: No cyanosis. He does have right-sided hemiplegia from CVA in the past. PSYCH: Appropriate affect. IMPRESSION: The patient evaluated and chart reviewed as most of the history taken from the chart, discussion with nurses as he has dementia and is a poor historian. This 73-year-old gentleman had some anemia sounds like this has been chronic in nature. They are not sure if he had past endoscopy so will check with the family. Otherwise, we need consideration endoscopy down the road but he will need to get cardiac clearance as requested for anesthesia that looked over the patient. He will also need to get over the pneumonia and current medical issues prior to taking bowel prep to do colonoscopy as an outpatient once he is cleared this admission. Again, he is not having any active major gross bloody stools or melena. No need for emergent endoscopy but will set up electively if he gets cardiac cleared and medically cleared and cleared per anesthesia. Otherwise, continue medical management of his hyperlipidemia, hypertension. Could hold his Eliquis if they are concerned about any drifting down of his hemoglobin, medical management for hyperlipidemia, hypertension, anxiety and depression. The patient definitely needs cardiac and medical clearance prior to considering any upper or lower endoscopy down the road if he has not had one. In the meantime, the nursing staff will check with the family members to see if he had one somewhere.
--- NOTE | 2024-02-15 09:20 | XRAY ---
Indication: Pneumonia. Comparison: February 09, 2024 Portable chest demonstrates new mild bibasilar infiltrates/atelectasis/effusions. Remaining heart and upper lungs unremarkable. Bony thorax intact again with osteopenia, degenerative changes, and old right rib/left clavicle fractures.
--- NOTE | 2024-02-15 11:27 | PCM.NOTE ---
Date and Time: 02/15/24 1121 Subjective Assessment: Mr. Stevens is a 73 year old male admitted with acute hypoxic respiratory failure/ septic shock secondary to pneumonia after experiencing a several day history of cough, congestion, and subjective fevers. Upon arrival lashaytent was hypoxic and hypotensive. Lab data significant for leukocytosis, suspicious UA, baseline anemia, SAVANNAH, gap acidosis, and elevated procal. Chest imaging with diffuse airspace disease. CT with BLl pneumonia. Patient was initiated on levophed drip and weaned off 02/11/24. Barium swallow eval OP 02/10/[address] with recommendations for patient to remain NPO as he was unable to clear pudding thick and nectar thick liquids as he was not muscles were not strong enough to swallow. NG placed for tube feedings to be started and pt pulled it out. PPN started IV for nutrition. Advance directives on chart indicate he does not want a peg tube placed. ST re-evaluated patient 02/12/24 with recs for pureed diet by staff for the next few days, ensure protein shakes -ST will re-eval Tuesday or Tuesday. Pt's meds on hold until able to do so. SAVANNAH has resolved. WBC now WNL. Sputum culture with ecoli, and sensitive to cefepime. Vancomycin discontinued. 02/12/24: Met with patient and family at bedside. He is alert and orientated today to self, place, (year stated as 2024), president, and situation. All questions and concerns answered. He denies any complaints this morning. He remains on room air. Lung sounds with fine crackles to bilateral bases. Levophed drip has been discontinued. WBC is now at 15.3<28.8<34.1. Discussed that sputum culture is showing Ecoli and is sensitive to cefepime. We can discontinue the vanc. 02/13/24: Met with patient bedside. A&O x 4. Seems to be gaining strength. Diet has been advanced to pureed and to be fed by staff for the next few days while regaining strength. At baseline RA, with continued fine crackles to bilateral bases. WBC now WNL. Denies fever,cough, sob, cp, abdominal pain, MEZA, dizziness, N/V/D. 02/14/24: No overnight events noted. Patient somnolent during interview. Discussed lab finding with hgb at 7.0 today. Will transfuse patient. Stools were positive for occult stool. May have to complete GI workup as OP. Denies fever,cough, sob, cp, abdominal pain, MEZA, dizziness, N/V/D. 02/15/24: Patient doing better today. Anxious to get back to nursing facility. Mood is still somewhat withdrawn. Pureed diet continued. Surgery consulted for positive occult stools, no intervention at this time, may consider as op with cardiac/medical clearance. Hgb stable at 8.8. Will continue to monitor overnight, possible discharge in tomorrow. - Review of Systems Constitutional: No Symptoms Eyes: No Symptoms Ears, Nose, & Throat: No Symptoms Respiratory: No Symptoms Cardiac: No Symptoms Abdominal/Gastrointestinal: No Symptoms Genitourinary Symptoms: No Symptoms Musculoskeletal: No Symptoms Skin: No Symptoms Neurological: No Symptoms Psychological: Depression Endocrine: No Symptoms Hematologic/Lymphatic: No Symptoms Immunological/Allergic: No Symptoms Objective Exam General Appearance: no apparent distress Neurologic Exam: alert, oriented x 3, cooperative Skin Exam: normal color Wound Assessment: Skin/Wound Assessment Wound/Incision Assessment Start: 02/10/24 01:32 Text: Status: Active Freq: Q6H Protocol: Document 02/15/24 08:00 [facility] (Rec: 02/15/24 08:26 [facility] [id number]) Wound/Incision Assessment Coccyx Wound Assessment Shift Assessment Wound Type Pressure Ulcer Wound Stage Stage I Dressing Status Dry & Intact,Changed Drainage Amount None Drainage Odor None/Absent Primary Dressing MEPILEX Comment Dressing remains C/D/I. Right Posterior Lateral Hand Wound Assessment Shift Assessment Wound Type WOUND/ABRASION Wound Stage Non Pressure Wound Dressing Status Dry & Intact Primary Dressing Non-Adherent Gauze Pads Secondary Dressing TEGADERM Comment Dressing remains C/D/I. Wound Photo Photo Taken No Date: 02/10/24 Time: 00:30 Comment: See chart Eye Exam: PERRL Ears, Nose, Throat Exam: normal ENT inspection Neck Exam: normal inspection Respiratory Exam: crackles/rales Cardiovascular Exam: regular rate/rhythm, normal heart sounds Gastrointestinal/Abdomen Exam: soft, normal bowel sounds Extremity Exam: normal inspection Back Exam: normal inspection Male Genitalia Exam: deferred Rectal Exam: deferred Objective Data Vital Signs: Vital Signs - 24 hr Temp Pulse Resp BP Pulse Ox 02/15/24 07:00 97.7 F 49 L 16 156/77 96 02/15/24 06:26 49 L 16 96 02/15/24 03:00 97.8 F 59 L 17 135/59 96 02/14/24 23:00 98.2 F 59 L 17 122/58 97 02/14/24 19:44 98.5 F 67 16 121/57 99 02/14/24 18:58 68 18 95 02/14/24 18:13 68 16 125/62 98 02/14/24 16:00 97.3 F 50 L 18 169/71 98 02/14/24 12:54 48 L 16 95 02/14/24 12:20 98.0 F 59 L 148/81 Pain Assessment - Last Documented Pain Intensity 0 Intake and Output: Intake & Output 02/12/24 02/13/24 02/14/24 02/15/24 11:59 11:59 11:59 11:59 Intake Total 4667 2595 1560 2234 Balance 4667 2595 1560 2234 Weight 61.1 kg 61.8 kg 64.1 kg 65 kg Lab Results: Lab Results-Last 24 Hours 02/09/24 02/14/24 02/14/24 Range/Units 20:11 13:30 16:07 WBC (4.0-10.5) x10^3/uL RBC (4.1-5.6) x10^6/uL Hgb 9.3 L D (12.5-18.0) g/dL Hct 29.5 L (42-50) % MCV (78-100) fL MCH (26-32) pg MCHC (32-36) g/dL RDW (11.5-14.0) % Plt Count (150-450) x10^3/uL MPV (7.5-11.0) fL Gran % (36.0-66.0) % Immature Gran % (Auto) (0.00-0.4) % Nucleat RBC Rel Count (0.00-0.1) % Eos # (Auto) (0-0.5) x10^3/uL Immature Gran # (Auto) (0.00-0.03) x10^3u/L Absolute Lymphs (auto) (1.0-4.6) x10^3/uL Absolute Monos (auto) (0.0-1.3) x10^3/uL Absolute Nucleated RBC (0.00-0.01) x10^3u/L Lymphocytes % (24.0-44.0) % Monocytes % (0.0-12.0) % Eosinophils % (0.00-5.0) % Basophils % (0.0-0.4) % Absolute Granulocytes (1.4-6.9) x10^3/uL Basophils # (0-0.4) x10^3/uL Smear Path Review Sodium (135-145) mmol/L Potassium (3.5-5.1) mmol/L Chloride (98-107) mmol/L Carbon Dioxide (22-30) mmol/L Anion Gap (5-15) MEQ/L BUN (9-20) mg/dL Creatinine (0.66-1.25) mg/dL Estimated GFR ML/MIN Glucose (74-106) mg/dL POC Glucometer 98 (74 to 106) mg/dL Calcium (8.4-10.2) mg/dL Magnesium (1.6-2.3) mg/dL Total Bilirubin (0.2-1.3) mg/dL AST (17-59) U/L ALT (0-50) U/L Alkaline Phosphatase (38-126) U/L Serum Total Protein (6.3-8.2) g/dL Albumin (3.5-5.0) g/dL 02/14/24 02/15/24 02/15/24 Range/Units 20:55 04:23 04:23 WBC 13.8 H (4.0-10.5) x10^3/uL RBC 2.89 L (4.1-5.6) x10^6/uL Hgb 8.8 L (12.5-18.0) g/dL Hct 26.7 L (42-50) % MCV 92.4 (78-100) fL MCH 30.4 (26-32) pg MCHC 33.0 (32-36) g/dL RDW 14.0 (11.5-14.0) % Plt Count 178 (150-450) x10^3/uL MPV 12.4 H (7.5-11.0) fL Gran % 74.6 H (36.0-66.0) % Immature Gran % (Auto) 3.8 H (0.00-0.4) % Nucleat RBC Rel Count 0.4 H (0.00-0.1) % Eos # (Auto) 0.09 (0-0.5) x10^3/uL Immature Gran # (Auto) 0.52 H (0.00-0.03) x10^3u/L Absolute Lymphs (auto) 1.99 (1.0-4.6) x10^3/uL Absolute Monos (auto) 0.85 (0.0-1.3) x10^3/uL Absolute Nucleated RBC 0.05 H (0.00-0.01) x10^3u/L Lymphocytes % 14.4 L (24.0-44.0) % Monocytes % 6.2 (0.0-12.0) % Eosinophils % 0.7 (0.00-5.0) % Basophils % 0.3 (0.0-0.4) % Absolute Granulocytes 10.30 H (1.4-6.9) x10^3/uL Basophils # 0.04 (0-0.4) x10^3/uL Smear Path Review Sodium 137 (135-145) mmol/L Potassium 3.4 L (3.5-5.1) mmol/L Chloride 106 (98-107) mmol/L Carbon Dioxide 30 (22-30) mmol/L Anion Gap 3.8 L (5-15) MEQ/L BUN 27 H (9-20) mg/dL Creatinine 0.57 L (0.66-1.25) mg/dL Estimated GFR 101.6 ML/MIN Glucose 79 (74-106) mg/dL POC Glucometer 124 H (74 to 106) mg/dL Calcium 8.6 (8.4-10.2) mg/dL Magnesium 1.9 (1.6-2.3) mg/dL Total Bilirubin 0.60 (0.2-1.3) mg/dL AST 19 (17-59) U/L ALT 18 (0-50) U/L Alkaline Phosphatase 89 (38-126) U/L Serum Total Protein 5.4 L (6.3-8.2) g/dL Albumin 2.5 L (3.5-5.0) g/dL 02/15/24 Range/Units 07:17 WBC (4.0-10.5) x10^3/uL RBC (4.1-5.6) x10^6/uL Hgb (12.5-18.0) g/dL Hct (42-50) % MCV (78-100) fL MCH (26-32) pg MCHC (32-36) g/dL RDW (11.5-14.0) % Plt Count (150-450) x10^3/uL MPV (7.5-11.0) fL Gran % (36.0-66.0) % Immature Gran % (Auto) (0.00-0.4) % Nucleat RBC Rel Count (0.00-0.1) % Eos # (Auto) (0-0.5) x10^3/uL Immature Gran # (Auto) (0.00-0.03) x10^3u/L Absolute Lymphs (auto) (1.0-4.6) x10^3/uL Absolute Monos (auto) (0.0-1.3) x10^3/uL Absolute Nucleated RBC (0.00-0.01) x10^3u/L Lymphocytes % (24.0-44.0) % Monocytes % (0.0-12.0) % Eosinophils % (0.00-5.0) % Basophils % (0.0-0.4) % Absolute Granulocytes (1.4-6.9) x10^3/uL Basophils # (0-0.4) x10^3/uL Smear Path Review Sodium (135-145) mmol/L Potassium (3.5-5.1) mmol/L Chloride (98-107) mmol/L Carbon Dioxide (22-30) mmol/L Anion Gap (5-15) MEQ/L BUN (9-20) mg/dL Creatinine (0.66-1.25) mg/dL Estimated GFR ML/MIN Glucose (74-106) mg/dL POC Glucometer 72 L (74 to 106) mg/dL Calcium (8.4-10.2) mg/dL Magnesium (1.6-2.3) mg/dL Total Bilirubin (0.2-1.3) mg/dL AST (17-59) U/L ALT (0-50) U/L Alkaline Phosphatase (38-126) U/L Serum Total Protein (6.3-8.2) g/dL Albumin (3.5-5.0) g/dL Radiology Exams: Radiology Procedures Category Date Time Status CHEST 1 VIEW (PORTABLE) Routine Exams 02/15/24 07:57 Completed Multi-Disciplinary Progress Notes: Multi-Disciplinary Progress Notes 02/15/24 10:37 Case Management Note by Amie Acuña NO CHANGE IN DC PLANS AT THIS TIME- PATIENT TO RETURN TO [place] AT TIME OF DC Initialized on 02/15/24 10:37 - END OF NOTE 02/15/24 08:53 Speech Therapy Note by Jose(L#[id number] SWALLOW TREATMENT: [id number]: PATIENT AWAKE IN BED UPON ST ARRIVAL. FOOD ITEMS TRIALLED INCLUDE BISCUITS AND GRAVY, KAMINSKI, TOAST WITH JELLY, AND ICED TEA PER PATIENT REQUEST. PATIENT DEMONSTRATED AN INABILITY TO REMAIN AWAKE WITH EYES OPEN DURING MASTICATION AND SWALLOW. SWALLOW DELAY OF 1-[address] INQUIRED IF HE WAS AWAKE. PATIENT RESPONDED WITH EYES OPEN. THEN WITH ANOTHER BITE ATTEMPT, HE ONCE AGAIN DEMONSTRATED DELAY OF SWALLOW AND EYES CLOSED. ST THEN PROMPTED IF HE WAS IN PAIN BECAUSE HIS NON-VERBAL RESPONSE APPEARED IF HE WAS HAVING TO SWALLOW EFFORTFULLY. PATIENT DENIED PAIN. HE DEMONSTRATED MASTICATION WITH ALL FOOD TRIALS THIS DATE; HOWEVER, HIS DELAY OF SWALLOW INITIATION AND NONVERBAL RESPONSES CONCERNED ST. REGULAR DIET CONSISTENCY BREAKFAST WAS STOPPED AT THAT TIME. DISCUSSED WITH NURSE AND GREASE AND TALLOW PUMPER. ST RECOMMENDS TO CONTINUE WITH PUREED DIET, STAFF ASSIST FOR INTAKE. GREASE AND TALLOW PUMPER INTERACTED WITH PATIENT WHO INDICATED HE WAS STILL EATING BREAKFAST. NURSE/AIDE TO COMPLETE MEAL WITH PUREED FOOD ITEMS. NURSE EXPRESSED CONCERN RE: PATIENT'S DEPRESSIVE DISORDER. ST WILL CONTINUE WITH DIET TEXTURE ANALYSIS WITH MODIFICATION PATIENT TOLERATES. Initialized on 02/15/24 08:53 - END OF NOTE 02/14/24 20:15 Physical Therapy Note by Melissa(L#[id number]),Darlene Reardon HELD THIS DATE PT'S HGB LOW AND REQUIRED BLOOD TRANSFUSION. 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 Precautions ASPIRATION Functional Goals of Treatment PATIENT WILL DEMONSTRATE TOLERANCE & SAFETY FOR THE MOST LENIENT DIET/LIQUID CONSISTENCY WITHOUT S/S OF ASPIRATION. Goal #1 PATIENT WILL DEMONSTRATE TOLERANCE & SAFETY FOR ORAL INTAKE OF PUREED DIET WITHOUT CLINICAL S/S OF ASPIRATION. Status Initial Goal #2 PATIENT WILL DEMONSTRATE TOLERANCE & SAFETY FOR ORAL INTAKE OF MECHANICAL SOFT DIET WITHOUT CLINICAL S/S OF ASPIRATION. Status Initial Goal #3 PATIENT WILL DEMONSTRATE TOLERANCE & SAFETY FOR ORAL INTAKE OF REGULAR LIQUIDS WITHOUT CLINICAL S/S OF ASPIRATION. Status Initial Frequency of Treatment: 5x/week Duration of Treatment: Hospital Stay Goals & POC discussed with patient/ Yes family Patient is aware of diagnosis and Yes prognosis Patient is receptive to plan of care Yes Rehabilitation Potential Good Patient Discharge Plan Description [facility] Patient Discharge Plan Comment DISCHARGE WHEN MEDICALLY ABLE TO RETURN TO LTC FACILITY. Initialized on 02/14/24 11:46 - END OF NOTE Assessment/Plan (1) Septic shock Current Visit: Yes Status: Acute Assessment & Plan: -Secondary to pneumonia -septic on admission, meeting criteria with WBC > 38131, resp > 20, lactic acid at 2.3, and known source -Blood cultures NGTD, Urine culture with no growth -Initially on levophed drip due to hypotension, now stable and discontinued 02/12/24 -Broad spectrum with vanc/cefepime -Sputum culture with Ecoli, sensitive to cefepime, will continue - dc vanc -WBC trending down 15.3<28.8<34.1>33.1 -MRSA -Nasal PCR negative -Resp frank negative -DVT prophylaxis with Lovenox 02/12: -no longer meets criteria -continuing cefepime, WBC now wnl Code(s): A41.9 - SEPSIS, UNSPECIFIED ORGANISM; R65.21 - SEVERE SEPSIS WITH SEPTIC SHOCK (2) Bilateral pneumonia Current Visit: Yes Status: Acute Qualifiers: Pneumonia type: aspiration pneumonia Assessment & Plan: - Chest CT 02/08 Impression: 1. Bilateral groundglass airspace disease greatest in both lower lobes. 2. 7 mm left lower lobe noncalcified nodule. Finding possibly granulomatous as there is evidence for old granulomatous disease elsewhere. 3. Chronic findings including diffuse arteriosclerotic disease and chronic bony findings - Chest XR 02/08 Portable chest again hyperinflated with new subtle bibasilar hazy airspace disease, left greater than right. No consolidation/large effusion. Heart not enlarged. Bony thorax intact again with osteopenia, degenerative changes, and old left clavicle fracture -Remains at RA with spo2 at 97% -WBC improving now at 15.3 -sputum culture positive for Ecoli, sensitive to cefepime, will continue, d/c vanc -ST to re-eval today as there is question of aspiration with failed swallow eval -Continue steroids/duoNebs, consider dose adjustment to steroid tomorrow -Resp frakn negative 02/12: -at baseline RA -Decrease steroids -continue cefepime 02/13: -continue cefepime, reduce steroid to daily 02/14: -continue cefepime, change steroid to oral prednisone -at baseline RA Code(s): J18.9 - PNEUMONIA, UNSPECIFIED ORGANISM (3) Bradycardia Current Visit: Yes Status: Acute Assessment & Plan: - EKG's reviewed - Tele - Monitor - 2:2 levophed? - trying to wean off medication 02/11: -Levophed d/c'd -improved Code(s): R00.1 - BRADYCARDIA, UNSPECIFIED (4) Dysphagia Current Visit: Yes Status: Acute Assessment & Plan: - ST eval with barium - failed swallow eval - NPO - PPN for nutrition - pulled out NG for tube feedings - advanced directive states no peg tube - ST to re-eval today 02/12: -ST eval with recs for pureed diet for the next few days with staff to feed, will re-eval 02/12 or 02/13 02/14: -ST recommendations to continue with pureed diet with staff assist Code(s): R13.10 - DYSPHAGIA, UNSPECIFIED (5) Elevated troponin Current Visit: Yes Status: Acute Assessment & Plan: - Trop 0.055, 0.048, 0.049 - Cardiology consulted- no new recs - Echo- EF 49.4% per dental technology advisor, awaiting read by cardiology - denies CP Code(s): R79.89 - OTHER SPECIFIED ABNORMAL FINDINGS OF BLOOD CHEMISTRY (6) Hypotension Current Visit: Yes Status: Acute Assessment & Plan: -stable, levophed d/cd, will continue to monitor Code(s): I95.9 - HYPOTENSION, UNSPECIFIED (7) Acute renal failure Current Visit: Yes Status: Resolved Assessment & Plan: -resolved (8) Underweight Current Visit: Yes Status: Acute Assessment & Plan: - BMI 17.6 - nutrition eval -PPN for nutrition 02/14: -pureed diet per ST recommendations, add ensure Code(s): R63.6 - UNDERWEIGHT (9) History of CVA (cerebrovascular accident) Current Visit: Yes Status: Chronic Assessment & Plan: - lives at [facility] in [place] - Chronic right hemiplegia - unable to take Eliquis at this time as NPO - renal dosing lovenox by pharmacy suggested and 02/10/2402/12: -resume home eliquis/ dc lovenox 02/13: -Hold eliquis due to GI bleed Code(s): Z86.73 - PRSNL HX OF TIA (TIA), AND CEREB INFRC W/O RESID DEFICITS (10) Type II diabetes mellitus Current Visit: Yes Status: Chronic Assessment & Plan: - A1C 01/06/24 5.14- controlled - Humlog s/s, accuchecks Ac/hs (11) Dehydration Current Visit: Yes Status: Resolved Assessment & Plan: - IVF stopped as PPN started - Anion gap on admission 15.7- now 8.4- resolved Code(s): E86.0 - DEHYDRATION (12) Altered mental status Current Visit: No Status: Acute Assessment & Plan: - back to baseline - awake and alert -more alert today per family - all oral meds held until better able to swallow- ST to eval today 02/12: -at baseline, oral meds resumed - will hold zyprexa for now # Anemia -appears chronic with baseline around 8-9, Hgb at 7.0 today, will transfuse with 1 unit LPRBC -venofer 02/14: -Stable at 8.8, will continue to monitor #GI Bleed -Occult stool positive -HGB at 7, will transfuse with 1 unit LPRBC -hold eliquis -Protonix -Avoid NSAIDs/ASA -H&H q8H -consult surg, most likely will have to be done as OP 02/14: -surg consulted, no intervention at this time, will follow up as OP with medi baltazar/cardiac clearance VTE: Eliquis - hold bilat SCD Next of KIN: brotherYao [phone] D/C plan 2-3 days Code status: SCO/DNR Code(s): R41.82 - ALTERED MENTAL STATUS, UNSPECIFIED Code(s): A41.9 - SEPSIS, UNSPECIFIED ORGANISM; R65.21 - SEVERE SEPSIS WITH SEPTIC SHOCK (2) Bilateral pneumonia Current Visit: Yes Status: Acute Qualifiers: Pneumonia type: aspiration pneumonia Code(s): J18.9 - PNEUMONIA, UNSPECIFIED ORGANISM (3) Bradycardia Current Visit: Yes Status: Acute Code(s): R00.1 - BRADYCARDIA, UNSPECIFIED (4) Dysphagia Current Visit: Yes Status: Acute Code(s): R13.10 - DYSPHAGIA, UNSPECIFIED (5) Elevated troponin Current Visit: Yes Status: Acute Code(s): R79.89 - OTHER SPECIFIED ABNORMAL FINDINGS OF BLOOD CHEMISTRY (6) Hypotension Current Visit: Yes Status: Acute Code(s): I95.9 - HYPOTENSION, UNSPECIFIED (7) Acute renal failure Current Visit: Yes Status: Resolved (8) Underweight Current Visit: Yes Status: Acute Code(s): R63.6 - UNDERWEIGHT (9) History of CVA (cerebrovascular accident) Current Visit: Yes Status: Chronic Code(s): Z86.73 - PRSNL HX OF TIA (TIA), AND CEREB INFRC W/O RESID DEFICITS (10) Type II diabetes mellitus Current Visit: Yes Status: Chronic (11) Dehydration Current Visit: Yes Status: Resolved Code(s): E86.0 - DEHYDRATION (12) Altered mental status Current Visit: No Status: Acute Code(s): R41.82 - ALTERED MENTAL STATUS, UNSPECIFIED (13) Anemia Current Visit: Yes Status: Acute Code(s): D64.9 - ANEMIA, UNSPECIFIED
[2024-02-15] MEDS: DELTASONE 20 MG PO SCH (21:43)
[2024-02-16 04:33] LABS: Hematocrit 29.1 % (42-50); Hemoglobin 9.1 g/dL (12.5-18.0); Mean Cell Volume 95.4 fL (78-100); Mean Corpuscular Hemoglobin 29.8 pg (26-32); Mean Corpuscular Hgb Concent. 31.3 g/dL (32-36); Mean Platelet Volume 11.8 fL (7.5-11.0); Platelet Count 204 x10^3/uL (150-450); Red Blood Count 3.05 x10^6/uL (4.1-5.6); Red Cell Distribution Width 13.6 % (11.5-14.0); White Blood Count 15.4 x10^3/uL (4.0-10.5)
[2024-02-16 05:27] LABS: ALBUMIN 2.6 g/dL (3.5-5.0); ANION GAP 3.6 MEQ/L (5-15); BILIRUBIN,TOTAL 0.3 mg/dL (0.2-1.3); Calcium 8.4 mg/dL (8.4-10.2); Creatinine 1 0.67 mg/dL (0.66-1.25); EST GLOMERULAR FILTRATION RATE 96.8 ML/MIN; MAGNESIUM 1.9 mg/dL (1.6-2.3); Potassium 4.3 mmol/L (3.5-5.1); Total Protein 5.5 g/dL (6.3-8.2)
[2024-02-16 05:37] LABS: BAND 2 % (0.0-2.0); Lymphocytes 8 % (24-44); Monocyte 1 % (0.0-12.0); Neutrophils 89 % (36.-66.); Nucleated Red Blood Cell 1 %; Total Cells Counted 100
[2024-02-16 05:38] LABS: ANISOCYTOSIS 1+; Platelet Estimate 1+ (NORMAL); Poikilocytosis 1+
--- NOTE | 2024-02-16 07:39 | PCM.DS ---
Discharge Summary Date of Admission: 02/09/24 23:23 Date of Discharge: 02/16/24 Admitting Physician: DARIEL THOMAS MD Consults: Consults on Case 02/10/24 08:20 Cardiology Consult [Notify Food Technician of Admit] ROUTINE 02/10/24 11:47 Nutritional Consult ROUTINE 02/14/24 13:14 Consult Surgery ROUTINE Primary Care Provider: WENDI WISE Allergies Allergies No Known Drug Allergies Allergy (Verified 02/09/24 19:44) Hospital Summary - Hospital Course Hospital Course: Subjective Assessment: Mr. Stevens is a 73 year old male admitted with acute hypoxic respiratory failure/ septic shock secondary to pneumonia after experiencing a several day history of cough, congestion, and subjective fevers. Upon arrival paitent was hypoxic and hypotensive. Initial lab data significant for leukocytosis, suspicious UA, baseline anemia, SAVANNAH, gap acidosis, and elevated procal. Chest imaging with diffuse airspace disease. CT with BLl pneumonia. Patient was initiated on levophed drip and weaned off 02/11/24. Barium swallow eval OP 02/10/[address] with recommendations for patient to remain NPO as he was unable to clear pudding thick and nectar thick liquids as he was not muscles were not strong enough to swallow. NG placed for tube feedings to be started and pt pulled it out. PPN started IV for nutrition. Advance directives on chart indicate he does not want a peg tube placed. ST re-evaluated patient 02/15/24 with recs for pureed diet.SAVANNAH has resolved. Sputum culture with ecoli, and sensitive to cefepime. Vancomycin discontinued. Dyspnea and cough have improved. Patient is at baseline mentation. He did receive 1 unit LPRBC and noted with positive occult stools. Surgery consulted and due to patient's current condition, no intervention at this time. Can follow up as OP, will need medical/cardiac clearance prior to any intervention. Hgb has remained stable. Continue to hold Eliquis x 1 week with re-evaluation. Discharge Note New Diagnosis: Pneumonia/septic shock New Medications: cefuroxime/prednisone/protonix Follow Up: pcp/surgery Latest Assessment & Plan (1) Septic shock Current Visit: Yes Status: Acute Assessment & Plan: -Secondary to pneumonia -septic on admission, meeting criteria with WBC > 99569, resp > 20, lactic acid at 2.3, and known source -Blood cultures NGTD, Urine culture with no growth -Initially on levophed drip due to hypotension, now stable and discontinued 02/12/24 -Broad spectrum with vanc/cefepime -Sputum culture with Ecoli, sensitive to cefepime, will continue - dc vanc -WBC trending down 15.3<28.8<34.1>33.1 -MRSA -Nasal PCR negative -Resp frank negative -DVT prophylaxis with Lovenox 02/12: -no longer meets criteria -continuing cefepime, WBC now wnl Code(s): A41.9 - SEPSIS, UNSPECIFIED ORGANISM; R65.21 - SEVERE SEPSIS WITH SEPTIC SHOCK (2) Bilateral pneumonia Current Visit: Yes Status: Acute Qualifiers: Pneumonia type: aspiration pneumonia Assessment & Plan: - Chest CT 02/08 Impression: 1. Bilateral groundglass airspace disease greatest in both lower lobes. 2. 7 mm left lower lobe noncalcified nodule. Finding possibly granulomatous as there is evidence for old granulomatous disease elsewhere. 3. Chronic findings including diffuse arteriosclerotic disease and chronic bony findings - Chest XR 02/08 Portable chest again hyperinflated with new subtle bibasilar hazy airspace disease, left greater than right. No consolidation/large effusion. Heart not enlarged. Bony thorax intact again with osteopenia, degenerative changes, and old left clavicle fracture -Remains at RA with spo2 at 97% -WBC improving now at 15.3 -sputum culture positive for Ecoli, sensitive to cefepime, will continue, d/c vanc -ST to re-eval today as there is question of aspiration with failed swallow eval -Continue steroids/duoNebs, consider dose adjustment to steroid tomorrow -Resp frank negative 02/12: -at baseline RA -Decrease steroids -continue cefepime 02/13: -continue cefepime, reduce steroid to daily 02/14: -continue cefepime, change steroid to oral prednisone -at baseline RA Code(s): J18.9 - PNEUMONIA, UNSPECIFIED ORGANISM (3) Bradycardia Current Visit: Yes Status: Acute Assessment & Plan: - EKG's reviewed - Tele - Monitor - 2:2 levophed? - trying to wean off medication 02/11: -Levophed d/c'd -improved Code(s): R00.1 - BRADYCARDIA, UNSPECIFIED (4) Dysphagia Current Visit: Yes Status: Acute Assessment & Plan: - ST eval with barium - failed swallow eval - NPO - PPN for nutrition - pulled out NG for tube feedings - advanced directive states no peg tube - ST to re-eval today 02/12: -ST eval with recs for pureed diet for the next few days with staff to feed, will re-eval 02/12 or 02/13 02/14: -ST recommendations to continue with pureed diet with staff assist Code(s): R13.10 - DYSPHAGIA, UNSPECIFIED (5) Elevated troponin Current Visit: Yes Status: Acute Assessment & Plan: - Trop 0.055, 0.048, 0.049 - Cardiology consulted- no new recs - Echo- EF 49.4% per food service technician, awaiting read by cardiology - denies CP Code(s): R79.89 - OTHER SPECIFIED ABNORMAL FINDINGS OF BLOOD CHEMISTRY (6) Hypotension Current Visit: Yes Status: Acute Assessment & Plan: -stable, levophed d/cd, will continue to monitor Code(s): I95.9 - HYPOTENSION, UNSPECIFIED (7) Acute renal failure Current Visit: Yes Status: Resolved Assessment & Plan: -resolved (8) Underweight Current Visit: Yes Status: Acute Assessment & Plan: - BMI 17.6 - nutrition eval -PPN for nutrition 02/14: -pureed diet per ST recommendations, add ensure Code(s): R63.6 - UNDERWEIGHT (9) History of CVA (cerebrovascular accident) Current Visit: Yes Status: Chronic Assessment & Plan: - lives at [facility] in [place] - Chronic right hemiplegia - unable to take Eliquis at this time as NPO - renal dosing lovenox by pharmacy suggested and 02/10/2402/12: -resume home eliquis/ dc lovenox 02/13: -Hold eliquis due to GI bleed Code(s): Z86.73 - PRSNL HX OF TIA (TIA), AND CEREB INFRC W/O RESID DEFICITS (10) Type II diabetes mellitus Current Visit: Yes Status: Chronic Assessment & Plan: - A1C 01/06/24 5.14- controlled - Humlog s/s, accuchecks Ac/hs (11) Dehydration Current Visit: Yes Status: Resolved Assessment & Plan: - IVF stopped as PPN started - Anion gap on admission 15.7- now 8.4- resolved Code(s): E86.0 - DEHYDRATION (12) Altered mental status Current Visit: No Status: Acute Assessment & Plan: - back to baseline - awake and alert -more alert today per family - all oral meds held until better able to swallow- ST to eval today 02/12: -at baseline, oral meds resumed - will hold zyprexa for now # Anemia -appears chronic with baseline around 8-9, Hgb at 7.0 today, will transfuse with 1 unit LPRBC -venofer 02/14: -Stable at 8.8, will continue to monitor #GI Bleed -Occult stool positive -HGB at 7, will transfuse with 1 unit LPRBC -hold eliquis -Protonix -Avoid NSAIDs/ASA -H&H q8H -consult surg, most likely will have to be done as OP 02/14: -surg consulted, no intervention at this time, will follow up as OP with medic al/cardiac clearance I spent 35 minutes [id number] with the patient on the day of discharge perfo rming discharge exam, discussing hospital stay and discharge instructions with patient and caregivers, preparation of discharge records, prescriptions & referral forms and addressing any questions/concerns the patient had as documented above. - Vitals & Intake/Output Vital Signs: Vital Signs Temperature 98.9 F 02/16/24 05:48 Pulse Rate 55 L 02/16/24 07:20 Respiratory Rate 20 02/16/24 07:20 Blood Pressure 153/77 02/16/24 05:48 O2 Sat by Pulse Oximetry 96 02/16/24 07:20 Intake & Output: Intake & Output 02/13/24 02/14/24 02/15/24 02/16/24 11:59 11:59 11:59 11:59 Intake Total 2595 1560 2234 1080 Balance 2595 1560 2234 1080 Weight 61.8 kg 64.1 kg 65 kg 66.8 kg - Lab Result Diagrams: 02/16/24 04:17 02/16/24 04:17 Lab Results-Last 24 Hrs: Lab Results-Last 24 Hours 02/15/24 02/15/24 02/15/24 Range/Units 11:26 12:05 15:50 WBC (4.0-10.5) x10^3/uL RBC (4.1-5.6) x10^6/uL Hgb (12.5-18.0) g/dL Hct (42-50) % MCV (78-100) fL MCH (26-32) pg MCHC (32-36) g/dL RDW (11.5-14.0) % Plt Count (150-450) x10^3/uL MPV (7.5-11.0) fL Segmented Neutrophils (36.-66.) % Band Neutrophils (0.0-2.0) % Lymphocytes (Manual) (24-44) % Monocytes (Manual) (0.0-12.0) % Nucleated RBCs % Platelet Estimate (NORMAL) RBC Morphology Poikilocytosis Anisocytosis Sodium (135-145) mmol/L Potassium 4.4 D 4.2 (3.5-5.1) mmol/L Chloride (98-107) mmol/L Carbon Dioxide (22-30) mmol/L Anion Gap (5-15) MEQ/L BUN (9-20) mg/dL Creatinine (0.66-1.25) mg/dL Estimated GFR ML/MIN Glucose (74-106) mg/dL POC Glucometer 109 H (74 to 106) mg/dL Calcium (8.4-10.2) mg/dL Magnesium (1.6-2.3) mg/dL Total Bilirubin (0.2-1.3) mg/dL AST (17-59) U/L ALT (0-50) U/L Alkaline Phosphatase (38-126) U/L Serum Total Protein (6.3-8.2) g/dL Albumin (3.5-5.0) g/dL 02/15/24 02/15/24 02/16/24 Range/Units 16:37 21:23 04:17 WBC 15.4 H (4.0-10.5) x10^3/uL RBC 3.05 L (4.1-5.6) x10^6/uL Hgb 9.1 L (12.5-18.0) g/dL Hct 29.1 L (42-50) % MCV 95.4 (78-100) fL MCH 29.8 (26-32) pg MCHC 31.3 L (32-36) g/dL RDW 13.6 (11.5-14.0) % Plt Count 204 (150-450) x10^3/uL MPV 11.8 H (7.5-11.0) fL Segmented Neutrophils 89 H (36.-66.) % Band Neutrophils 2 (0.0-2.0) % Lymphocytes (Manual) 8 L (24-44) % Monocytes (Manual) 1 (0.0-12.0) % Nucleated RBCs 1 % Platelet Estimate 1+ (NORMAL) RBC Morphology ABNORMAL Poikilocytosis 1+ Anisocytosis 1+ Sodium (135-145) mmol/L Potassium (3.5-5.1) mmol/L Chloride (98-107) mmol/L Carbon Dioxide (22-30) mmol/L Anion Gap (5-15) MEQ/L BUN (9-20) mg/dL Creatinine (0.66-1.25) mg/dL Estimated GFR ML/MIN Glucose (74-106) mg/dL POC Glucometer 129 H 128 H (74 to 106) mg/dL Calcium (8.4-10.2) mg/dL Magnesium (1.6-2.3) mg/dL Total Bilirubin (0.2-1.3) mg/dL AST (17-59) U/L ALT (0-50) U/L Alkaline Phosphatase (38-126) U/L Serum Total Protein (6.3-8.2) g/dL Albumin (3.5-5.0) g/dL 02/16/24 02/16/24 Range/Units 04:17 07:05 WBC (4.0-10.5) x10^3/uL RBC (4.1-5.6) x10^6/uL Hgb (12.5-18.0) g/dL Hct (42-50) % MCV (78-100) fL MCH (26-32) pg MCHC (32-36) g/dL RDW (11.5-14.0) % Plt Count (150-450) x10^3/uL MPV (7.5-11.0) fL Segmented Neutrophils (36.-66.) % Band Neutrophils (0.0-2.0) % Lymphocytes (Manual) (24-44) % Monocytes (Manual) (0.0-12.0) % Nucleated RBCs % Platelet Estimate (NORMAL) RBC Morphology Poikilocytosis Anisocytosis Sodium 136 (135-145) mmol/L Potassium 4.3 (3.5-5.1) mmol/L Chloride 103 (98-107) mmol/L Carbon Dioxide 33 H (22-30) mmol/L Anion Gap 3.6 L (5-15) MEQ/L BUN 26 H (9-20) mg/dL Creatinine 0.67 (0.66-1.25) mg/dL Estimated GFR 96.8 ML/MIN Glucose 99 (74-106) mg/dL POC Glucometer 107 H (74 to 106) mg/dL Calcium 8.4 (8.4-10.2) mg/dL Magnesium 1.9 (1.6-2.3) mg/dL Total Bilirubin 0.30 (0.2-1.3) mg/dL AST 26 (17-59) U/L ALT 23 (0-50) U/L Alkaline Phosphatase 89 (38-126) U/L Serum Total Protein 5.5 L (6.3-8.2) g/dL Albumin 2.6 L (3.5-5.0) g/dL Micro Results-Entire Visit: Microbiology 02/09/24 20:15 Blood Culture - Final Blood 02/09/24 20:11 Blood Culture - Final Blood 02/10/24 00:00 Gram Stain - Final Sputum - Expectorant Sputum Culture - Final Escherichia Coli 02/09/24 21:05 Urine Culture - Final Urine, Catheterized NO GROWTH Accuchecks Date 02/15/24 Date 02/15/24 Date 02/15/24 Time 20:25 - Radiology Exams Ordered Rad Exams-Entire Visit: Radiology Procedures Category Date Time Status CHEST 1 VIEW (PORTABLE) Routine Exams 02/15/24 07:57 Completed - Procedures and Test Procedures and Tests throughout Hospitalization: Therapy Orders & Screens 02/09/24 20:09 Respiratory Therapy Assessment DAILY Comment: 02/09/24 23:37 Respiratory Therapy Consult ONCE Comment: Reason For Exam: 02/10/24 01:32 OT Screen per Nursing Assess ONCE Comment: Protocol Order Physician Instructions: Greater than 3 points order OT Admission Screening Reason For Exam: Triggered on Admission Diagnosis: septic shock, renal failure, bilateral pneumonia Open Wound/Cellutlitis/Pressure Ulcers: Yes Acute Fx/ORIF/Change in wt bearing status: No Severe MUSCULOSKELETAL pain: No ADL Dysfunction: Yes Acute CVA w/Hemiparesis/Hemiplegia: No Sprain/Strain: No Acute Post-op Mobility Dysfunction: No Total Points: 8 PT Screen per Nursing Assess ONCE Comment: Protocol Order Physician Instructions: Greater than 3 points order PT Admission Screenin Reason For Exam: Triggered on Admission Diagnosis: septic shock, renal failure, bilateral pneumonia Open Wound/Cellutlitis/Pressure Ulcers: Yes Acute Fx/ORIF/Change in wt bearing status: No Severe MUSCULOSKELETAL pain: No ADL Dysfunction: Yes Acute CVA w/Hemiparesis/Hemiplegia: No Sprain/Strain: No Acute Post-op Mobility Dysfunction: No Total Points: 8 ST Screen per Nursing Assess ONCE Comment: Protocol Order Physician Instructions: Greater than [address] Admission Screening Reason For Exam: Triggered on Admission Diagnosis: septic shock, renal failure, bilateral pneumonia CVA/Dyshpagia/Aphasia: No Cognitive Deficits: Yes Pneumonia: No Correction Resident: Yes Total Points: 8 02/10/24 03:01 Respiratory Therapy Assessment DAILY Comment: Diagnosis: septic shock, renal failure, bilateral pneumonia 02/10/24 07:39 Oxygen NASAL CANNULA 2 lpm Comment: Diagnosis: septic shock, renal failure, bilateral pneumonia 02/10/24 08:20 Speech Therapy Eval & Treat [ Eval & Treat (MD Order)] .as ordered Comment: Physician Instructions: Reason For Exam: Evaluate: Yes Treat: Yes Reason for Eval: aspiration Diagnosis: septic shock, renal failure, bilateral pneumonia 02/10/24 13:36 PT Eval & Treat ( Order) ONCE Reason for Eval:: will need heparin. Diagnosis: septic shock, renal failure, bilateral pneumonia 02/11/24 10:41 EKG ROUTINE Comment: pauses seen on monitor, hypotension Diagnosis: septic shock, renal failure, bilateral pneumonia EKG Reason: Other Discharge Exam General Appearance: no apparent distress Neurologic Exam: alert, oriented x 3, cooperative Eye Exam: PERRL Ears, Nose, Throat Exam: normal ENT inspection Neck Exam: normal inspection Respiratory Exam: crackles/rales Cardiovascular Exam: regular rate/rhythm, normal heart sounds Gastrointestinal/Abdomen Exam: soft, normal bowel sounds Male Genitalia Exam: deferred Rectal Exam: deferred Back Exam: normal inspection Extremity Exam: normal inspection Skin Exam: pale Wound Assessment: Skin/Wound Assessment Wound/Incision Assessment Start: 02/10/24 01:32 Text: Status: Active Freq: Q6H Protocol: Document 02/16/24 01:13 AF (Rec: 02/16/24 01:13 AF [id number]) Wound/Incision Assessment Coccyx Wound Assessment Shift Assessment Wound Type Pressure Ulcer Wound Stage Stage I Dressing Status Dry & Intact,Changed Drainage Amount None Drainage Odor None/Absent General Appearance Well Approximated Primary Dressing MEPILEX Comment Dayshift replaced Mepilex dressing, healing pressure area. Right Posterior Lateral Hand Wound Assessment Shift Assessment Wound Type WOUND/ABRASION Wound Stage Non Pressure Wound Dressing Status Dry & Intact,Changed Drainage Amount Minimal Drainage Description Yellow Drainage Odor None/Absent Primary Dressing Non-Adherent Gauze Pads Secondary Dressing TEGADERM Comment Dayshift, today, replaced non- adherent pad and tegaderm. Healing wound/abrasion. Wound Photo Photo Taken Yes Date: 02/15/24 Time: 14:00 Comment: New updated pics placed in chart. Final Diagnosis/Problem List - Final Discharge Diagnosis/Problem (1) Septic shock Current Visit: Yes Status: Acute Code(s): A41.9 - SEPSIS, UNSPECIFIED ORGAN ISM; R65.21 - SEVERE SEPSIS WITH SEPTIC SHOCK (2) Bilateral pneumonia Current Visit: Yes Status: Acute Code(s): J18.9 - PNEUMONIA, UNSPECIFIED ORGANISM (3) Bradycardia Current Visit: Yes Status: Acute Code(s): R00.1 - BRADYCARDIA, UNSPECIFIED (4) Dysphagia Current Visit: Yes Status: Acute Code(s): R13.10 - DYSPHAGIA, UNSPECIFIED (5) Elevated troponin Current Visit: Yes Status: Acute Code(s): R79.89 - OTHER SPECIFIED ABNORMAL FINDINGS OF BLOOD CHEMISTRY (6) Hypotension Current Visit: Yes Status: Acute Code(s): I95.9 - HYPOTENSION, UNSPECIFIED (7) Acute renal failure Current Visit: Yes Status: Resolved (8) Underweight Current Visit: Yes Status: Acute Code(s): R63.6 - UNDERWEIGHT (9) History of CVA (cerebrovascular accident) Current Visit: Yes Status: Chronic Code(s): Z86.73 - PRSNL HX OF TIA (TIA), AND CEREB INFRC W/O RESID DEFICITS (10) Type II diabetes mellitus Current Visit: Yes Status: Chronic (11) Dehydration Current Visit: Yes Status: Resolved Code(s): E86.0 - DEHYDRATION (12) Altered mental status Current Visit: No Status: Acute Code(s): R41.82 - ALTERED MENTAL STATUS, UNSPECIFIED (13) Anemia Current Visit: Yes Status: Acute Code(s): D64.9 - ANEMIA, UNSPECIFIED - Discharge Disposition: DC TO ANY "OTHER" [facility] Condition: Stable Prescriptions: New Prednisone 20 mg [Deltasone 20 mg] 20 mg PO BID #0 tablet PANTOPRAZOLE 40 mg Tablet [Protonix 40MG Tablet] 40 mg PO QAM 30 Days #30 tab Continue Lisinopril 20 mg [Zestril 20 MG] 20 mg PO DAILY Escitalopram Oxalate [Lexapro] 20 mg PO DAILY Betamethasone Dipropionate [Diprosone CREAM 0.05% ] 15 gm TP Q12H PRN PRN Reason: Redness/Irritation Donepezil HCl 10 mg [Aricept 10 MG] 10 mg PO HS Atorvastatin Calcium 20 mg PO HS Balsam [place] Oil [Venelex Ointment] 30 gm TP UD PRN PRN Reason: Redness/Irritation Selenium Sulfide [Selsun Blue] 325 ml TP UD Multivitamin [Multiple Vitamins] 1 each PO DAILY Melatonin 5 mg PO HS Menthol/Zinc Oxide [Calmoseptine Ointment Packet] 3.5 gm TP QID PRN PRN Reason: Redness/Irritation Acetaminophen 325 mg [Tylenol 325 mg] 650 mg PO Q6HPRN PRN PRN Reason: Pain Acetaminophen 325 mg [Tylenol 325 mg] 650 mg PO DAILY OLANZapine [Olanzapine] 2.5 mg PO BID Cefuroxime Axetil 500 mg [Ceftin 500 mg] 500 mg PO BID 7 Days #14 tablet Discontinued Apixaban [Eliquis] 5 mg PO BID Additional Instructions: [facility] ORDERS: PUREED DIET, STAFF TO ASSIST WITH FEEDING RESUME PREVIOUS ORDERS SEE ATTACHED MED LIST -Hold Eliquis for one week -Will need follow up with surgery for colonoscopy once he gets medical/ cardiac clearance -Daily CBC Follow up with: WENDI WISE MD [Primary Care Provider] -
[2024-02-16] MEDS: zyPREXA 5MG TABLET PO SCH (09:09)
--- NOTE | 2024-02-16 11:13 | ECHO ---
DATE OF PROCEDURE: 02/10/2024 CLINICAL INFORMATION: Non-ST elevation myocardial infarction and shock. The M-mode 2D, and Doppler echocardiogram including color flow Doppler shows the left ventricle is normal in size. There is borderline hypertrophy involving the septum. There is hypokinesis of the septum. The ejection fraction is calculated to be 49%. There is borderline mild decrease in left ventricular systolic function. The right ventricle is not well visualized. The left atrium is normal in size. The interatrial septum is intact. The right atrium is normal. The aortic valve is mildly sclerotic The aortic valve leaflets open satisfactorily. There is mitral valvular calcification. The tricuspid valve is normal. The pulmonic valve is not well visualized. The aortic root is normal. There is no pericardial effusion present. IMPRESSION: 1) MILD DECREASE IN LEFT VENTRICULAR SYSTOLIC FUNCTION. 2) HYPOKINESIS OF THE LEFT VENTRICULAR SEPTUM. 3) BORDERLINE HYPERTROPHY OF INTERVENTRICULAR SEPTUM.
[2024-02-16 11:58] VITALS: BP 128/59; TEMP 98.1
[2024-02-16 13:42] VITALS: PULSE 68; RESP 16; O2SAT 93
== END 2024-02-16 15:47 | DRG 871 ==
LOC: ED 19:41 → ICU 23:23
PROVIDERS: ADMIT Internal Medicine Critical Care Medicine; ATTEND Internal Medicine Critical Care Medicine
DX: A41.9 Sepsis, unspecified organism (principal); J18.9 Pneumonia, unspecified organism; R65.21 Severe sepsis with septic shock; N17.9 Acute kidney failure, unspecified; K92.2 Gastrointestinal hemorrhage, unspecified; N39.0 Urinary tract infection, site not specified; R00.1 Bradycardia, unspecified; R13.10 Dysphagia, unspecified; R79.89 Other specified abnormal findings of blood chemistry; I95.9 Hypotension, unspecified; R63.6 Underweight; Z86.73 Personal history of transient ischemic attack (TIA), and cerebral infarction without residual deficits; E11.9 Type 2 diabetes mellitus without complications; E86.0 Dehydration; R41.82 Altered mental status, unspecified; D64.9 Anemia, unspecified; L89.151 Pressure ulcer of sacral region, stage 1; L89.899 Pressure ulcer of other site, unspecified stage; E78.5 Hyperlipidemia, unspecified; B96.20 Unspecified Escherichia coli [E. coli] as the cause of diseases classified elsewhere; Z79.899 Other long term (current) drug therapy; Z79.01 Long term (current) use of anticoagulants
CPT/HCPCS: 0241U; 36000; 36415; 36430; 36558; 71045; 71250; 74230; 80053; 81001; 82947; 83540; 83550; 83605; 83735; 83880; 84132; 84134; 84145; 84484; 85014; 85018; 85025; 85027; 86850; 86900; 86901; 86922; 87040; 87070; 87077; 87086; 87186; 87641; 92526; 92610; 92611; 93005; 93041; 93306; 94640; 94760; 96360; 96365; 96367; 97161; 99285; 99291; G0328; P9016; Q3014; 82274; J0456; J0692; J1642; J1650; J1720; J1756; J1940; J2543; J3370; A9270-GY